=== PATIENT | female | born 1980 | race Caucasian/White ===

== ENCOUNTER 2016-12-31 21:23 | Emergency (ER) | payer SELFPAY ==
[2016-12-31 21:41] VITALS: BP 128/88
[2016-12-31] MEDS ORDERED: Ondansetron 4 MG/2 ML SDV IVPUSH ONE (22:41)
[2016-12-31] MEDS ORDERED: diphenhydrAMINE 50 MG/ML SDV IVPUSH ONE (22:41)
[2016-12-31] MEDS ORDERED: Lactated Ringers 1,000 ML IV ONE (22:41)
--- NOTE | 2016-12-31 22:55 | EDM.PDOC ---
ED HPI GENERAL MEDICAL PROBLEM - General Chief Complaint: Headache Stated Complaint: HEADACHE/VOMITING Time Seen by Provider: 12/31/16 22:15 - History of Present Illness INITIAL COMMENTS - FREE TEXT/NARRATIVE: 36-year-old female presents emergency room with a headache. This started after reaching to the back of her car and grabbing her backpack she heard something pop in her upper back, and this extended up into her head. This is progressively been getting worse throughout the day. The patient has a history of tension headaches migraine headaches. This is a typical headache for her patient has some associated nausea and photophobia has not vomited with this she has not been eating or drinking much today. Patient has some right hand weakness that is getting worse over the last several weeks she is scheduled to see orthopedics on Tuesday for this. This is thought to be related to prior carpal tunnel surgery where she had some complications. 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 Pt did state to me that she cannot take lithium Hematologic History: Reports: Other (See Below) Other Hematologic History: pernicoius anemia Oncologic (Cancer) History: Reports: None - Infectious Disease History Infectious Disease History: Reports: None Social & Family History - Family History Family Medical History: Noncontributory - Tobacco Use Smoking Status *Q: Current Every Day Smoker Years of Tobacco use: 18 Packs/Tins Daily: 1 Used Tobacco, but Quit: No Second Hand Smoke Exposure: Yes - Caffeine Use Caffeine Use: Reports: None - Alcohol Use Days Per Week of Alcohol Use: 0 - Recreational Drug Use Recreational Drug Use: No ED ROS GENERAL - Review of Systems Review Of Systems: See Below Constitutional: Reports: No Symptoms HEENT: Reports: No Symptoms Respiratory: Reports: No Symptoms Cardiovascular: Reports: No Symptoms GI/Abdominal: Reports: Nausea. Denies: Abdominal Pain, Constipation, Diarrhea, Vomiting : Reports: No Symptoms Neurological: Reports: Headache. Denies: Trouble Speaking, Change in Speech, Gait Disturbance - Physical Exam Exam: See Below Exam Limited By: No Limitations General Appearance: Alert, No Apparent Distress, Other (She has some photophobia but is otherwise cooperative) Eye Exam: Bilateral Eye: EOMI, Normal Inspection, PERRL Ears: Normal External Exam, Normal Canal, Hearing Grossly Normal, Normal TMs Nose: Normal Inspection, Normal Mucosa, No Blood Throat/Mouth: Normal Inspection, Normal Lips, Normal Gums, Normal Oropharynx, Normal Voice, No Airway Compromise, Other (Semi-moist mucosa). No: Normal Teeth Head Exam: Atraumatic, Normocephalic Neck: Normal Inspection, Supple, Non-Tender, Full Range of Motion, Other (She has some mild to moderate muscle spasm in the paraspinous muscles bilaterally). No: Lymphadenopathy (L), Lymphadenopathy (R) Respiratory/Chest: No Respiratory Distress, Lungs Clear, Normal Breath Sounds Cardiovascular: Regular Rate, Rhythm, No Edema, No Murmur Neuro Exam (Abbreviated): Other (Cranial nerves II through XII grossly intact all muscle groups in the upper extremities with the exception of some of her hand muscles especially gripping seem to be intact no lower extremity weakness appreciated deep tendon reflexes the brachial radialis and patella tendons are equal and appropriate bilaterally cerebellar testing is entirely within normal limits) Course - Vital Signs Last Recorded V/S: Last Vital Signs Temp 36.6 C 12/31/16 21:36 Pulse 54 L 12/31/16 21:36 Resp 16 12/31/16 21:36 BP 128/88 12/31/16 21:36 Pulse Ox 100 12/31/16 21:36 - Orders/Labs/Meds Meds: Medications Discontinued Medications Generic Name Dose Route Start Last Admin Trade Name Freq PRN Reason Stop Dose Admin Diphenhydramine HCl 50 mg 12/31/16 22:41 12/31/16 22:53 Benadryl IVPUSH 12/31/16 22:42 50 mg ONETIME ONE Administration Lactated Ringer's 1,000 mls @ 999 mls/hr 12/31/16 22:41 12/31/16 22:53 Ringers, Lactated IV 12/31/16 23:41 999 mls/hr .BOLUS ONE Administration Ondansetron HCl 4 mg 12/31/16 22:41 12/31/16 22:53 Zofran IVPUSH 12/31/16 22:42 4 mg ONETIME ONE Administration - Re-Assessments/Exams Free Text/Narrative Re-Assessment/Exam: 12/31/16 23:47 Patient is doing much better her headache basically gone. She is received IV LR 4 mg Zofran 50 mg Benadryl. We'll discharge home at this time Departure - Departure Time of Disposition: 23:47 Disposition: Home, Self-Care 01 Clinical Impression: Muscle tension headache, Migraine - Discharge Information Forms: ED Department Discharge Additional Instructions: Return to the emergency room with any questions problems worsening symptoms. Go and get some sleep this is the best treatment for headaches do not eat anything heavy tonight mostly clear liquids. Follow-up with orthopedics as scheduled.
== END 2016-12-31 23:55 | disposition home or self-care (01) ==
LOC: JD.ED 21:23
DX: G44.209 Tension-type headache, unspecified, not intractable (principal); G43.909 Migraine, unspecified, not intractable, without status migrainosus; F17.210 Nicotine dependence, cigarettes, uncomplicated; Z86.2 Personal history of diseases of the blood and blood-forming organs and certain disorders involving the immune mechanism; Z88.8 Allergy status to other drugs, medicaments and biological substances; Z87.01 Personal history of pneumonia (recurrent)
CPT/HCPCS: 96361; 96374; 96375; 99284; J1200; J2405; J7120

== ENCOUNTER 2017-02-18 17:03 | Emergency (ER) | payer SELFPAY ==
[2017-02-18 17:46] VITALS: BP 146/112
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
== END 2017-02-18 18:40 ==
LOC: JD.ED 17:03
DX: M54.6 Pain in thoracic spine (principal); F17.210 Nicotine dependence, cigarettes, uncomplicated; R21 Rash and other nonspecific skin eruption; Z88.8 Allergy status to other drugs, medicaments and biological substances; Z87.01 Personal history of pneumonia (recurrent); W19.XXXA Unspecified fall, initial encounter
CPT/HCPCS: 99282; 99283

== ENCOUNTER 2017-04-22 14:35 | Emergency (ER) | payer SELFPAY ==
[2017-04-22] MEDS ORDERED: Ondansetron 4 MG/2 ML SDV IVPUSH ONE (16:37)
[2017-04-22] MEDS ORDERED: Ketorolac 30 MG/ML SDV IVPUSH ONE (16:37)
[2017-04-22] MEDS ORDERED: Sodium Chloride 0.9% 10 ML Syringe FLUSH PRN (16:37)
[2017-04-22] MEDS ORDERED: Sodium Chloride 0.9% 1,000 ML IV ONE (16:37)
--- NOTE | 2017-04-22 16:38 | EDM.PDOC ---
ED HPI GENERAL MEDICAL PROBLEM - General Chief Complaint: Gastrointestinal Problem Stated Complaint: HEAD PAIN Time Seen by Provider: 04/22/17 14:55 Source of Information: Reports: Patient History Limitations: Reports: No Limitations - History of Present Illness INITIAL COMMENTS - FREE TEXT/NARRATIVE: 36 year old female presents for evaluation and treatment of a headache, nausea, vomiting, diarrhea and chills. Patient reports she developed diarrhea yesterday , had 5-6 episodes yesterday. Started vomiting today. Reports 3-4 of vomiting today. Current symptoms include nausea, vomiting, chills, rigors, diaphoresis, headaches and back pain. No bloody stools. Patient also reports her skin feels "prinkly". Unsure if she had any fevers as she did not check her temperature. Denies any ear pain, sore throat or cough. Patient reports she used to frequently gets headaches and was previously on maxalt. Reports chronic back pain. states this improves with bed rest. Patient reports she recently started phentermine . Last took phentermine yesterday. She feels the phentermine is causing a racing heart and headaches. Patient is very concerned she is dehydrated. States she easily becomes dehydrated and is concerned she is dehydrated today. 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 (see below) Other Treatments HACK DRIVER: has not taken any pain relievers for headache headache Pain Score (Numeric/FACES): 8 - Related Data Allergies Allergy/AdvReac Type Severity Reaction Status Date / Time promethazine HCl Allergy Severe Anxiety Verified 04/22/17 15:13 [From Phenergan] metoclopramide HCl Allergy Anxiety Verified 04/22/17 15:13 [From Reglan] Home Meds: Home Meds Cyanocobalamin (Vitamin B12) [Vitamin B12] 1 dose IM ASDIRECTED 04/22/17 [ History] Phentermine HCl 45 mg PO DAILY 04/22/17 [History] Past Medical History Respiratory History: Reports: Pneumonia, Recurrent 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 Pt did state to me that she cannot take lithium Hematologic History: Reports: Other (See Below) Other Hematologic History: pernicoius anemia Oncologic (Cancer) History: Reports: None - Infectious Disease History Infectious Disease History: Reports: None Social & Family History - Family History Family Medical History: Noncontributory - Tobacco Use Smoking Status *Q: Current Every Day Smoker Years of Tobacco use: 15 Packs/Tins Daily: 1 Used Tobacco, but Quit: No Second Hand Smoke Exposure: Yes - Caffeine Use Caffeine Use: Reports: Coffee, Energy Drinks, Soda - Alcohol Use Days Per Week of Alcohol Use: 0 - Recreational Drug Use Recreational Drug Use: No ED ROS GENERAL - Review of Systems Review Of Systems: See Below Constitutional: Reports: Chills, Malaise, Diaphoresis. Denies: Fever (unsure) HEENT: Reports: Other (reprots photophobia). Denies: Eye Pain, Throat Pain Respiratory: Denies: Cough GI/Abdominal: Reports: Diarrhea, Nausea, Vomiting. Denies: Abdominal Pain, Bloody Stool : Reports: No Symptoms Musculoskeletal: Reports: Neck Pain (chronic), Back Pain (chronic) Neurological: Reports: Headache ED EXAM, GI/ABD - Physical Exam Exam: See Below Exam Limited By: No Limitations General Appearance: Alert, WD/WN, No Apparent Distress Ears: Normal External Exam, Normal Canal, Hearing Grossly Normal, Normal TMs Throat/Mouth: Normal Inspection, Normal Lips, Normal Oropharynx, Normal Voice, No Airway Compromise Respiratory/Chest: No Respiratory Distress, Lungs Clear, Normal Breath Sounds Cardiovascular: Normal Peripheral Pulses, Regular Rate, Rhythm, No Murmur GI/Abdominal Exam: Soft, Non-Tender Neurological: Alert, Oriented, Normal Cognition Psychiatric: Normal Affect, Normal Mood Skin Exam: Warm, Dry, Normal Color Course - Vital Signs Last Recorded V/S: Last Vital Signs Temp 37.0 C 04/22/17 15:00 Pulse 62 04/22/17 17:50 Resp 16 04/22/17 17:50 BP 100/44 L 04/22/17 17:50 Pulse Ox 98 04/22/17 17:50 - Orders/Labs/Meds Labs: Laboratory Tests 04/22/17 04/22/17 04/22/17 Range/Units 16:50 16:50 19:15 WBC 9.94 (3.98-10.04) K/mm3 RBC 4.26 (3.98-5.22) M/mm3 Hgb 13.5 (11.2-15.7) gm/L Hct 41.7 (34.1-44.9) % MCV 97.9 H (79.4-94.8) fl MCH 31.7 (25.6-32.2) pg MCHC 32.4 (32.2-35.5) g/dl RDW Std Deviation 44.9 (36.4-46.3) fL Plt Count 266 (182-369) K/mm3 MPV 11.4 (9.4-12.3) fl Neutrophils % (Manual) 69 H (40-60) % Band Neutrophils % 0 (0-10) % Lymphocytes % (Manual) 23 (20-40) % Atypical Lymphs % 1 % Monocytes % (Manual) 3 (2-10) % Eosinophils % (Manual) 4 (0.7-5.8) % Basophils % (Manual) 0 L (0.1-1.2) Platelet Estimate Adequate Plt Morphology Comment Normal RBC Morph Comment Normal Sodium 140 (136-145) mEq/L Potassium 4.1 (3.5-5.1) mEq/L Chloride 105 (98-107) mEq/L Carbon Dioxide 28 (21-32) mEq/L Anion Gap 11.1 (5-15) BUN 13 (7-18) mg/dL Creatinine 1.0 (0.55-1.02) mg/dL Est Cr Clr Drug Dosing 76.36 mL/min Estimated GFR (MDRD) > 60 (>60) mL/min BUN/Creatinine Ratio 13.0 L (14-18) Glucose 98 (74-106) mg/dL Calcium 8.7 (8.5-10.1) mg/dL Total Bilirubin 0.4 (0.2-1.0) mg/dL AST 23 (15-37) U/L ALT 33 (14-59) U/L Alkaline Phosphatase 65 (46-116) U/L C-Reactive Protein 0.5 (<1.0) mg/dL Total Protein 7.6 (6.4-8.2) g/dl Albumin 3.3 L (3.4-5.0) g/dl Globulin 4.3 gm/dL Albumin/Globulin Ratio 0.8 L (1-2) Urine Color Yellow (Yellow) Urine Appearance Slt cloudy H (Clear) Urine pH 6.0 (5.0-8.0) Ur Specific Gays > or = 1.030 (1.005-1.030) Urine Protein Negative (Negative) Urine Glucose (UA) Negative (Negative) Urine Ketones Negative (Negative) Urine Occult Blood 3+ H (Negative) Urine Nitrite Negative (Negative) Urine Bilirubin Negative (Negative) Urine Urobilinogen 1.0 (0.2-1.0) Ur Leukocyte Esterase Negative (Negative) Urine RBC 0-5 (0-5) /hpf Urine WBC 0-5 (0-5) /hpf Ur Epithelial Cells 0-5 (0-5) /hpf Urine Bacteria Few (FEW) /hpf Urine Mucus Many H (FEW) /hpf Meds: Medications Discontinued Medications Generic Name Dose Route Start Last Admin Trade Name Freq PRN Reason Stop Dose Admin Sodium Chloride 1,000 mls @ 999 mls/hr 04/22/17 16:37 04/22/17 17:06 Normal Saline IV 04/22/17 17:37 999 mls/hr ONETIME ONE Administration Ketorolac Tromethamine 30 mg 04/22/17 16:37 04/22/17 17:04 Toradol IVPUSH 04/22/17 16:38 30 mg ONETIME ONE Administration Ondansetron HCl 4 mg 04/22/17 16:37 04/22/17 17:02 Zofran IVPUSH 04/22/17 16:38 4 mg ONETIME ONE Administration Sodium Chloride 10 ml 04/22/17 16:37 04/22/17 17:04 Saline Flush FLUSH 10 ml ASDIRECTED PRN Administration Keep Vein Open - Re-Assessments/Exams Free Text/Narrative Re-Assessment/Exam: 04/22/172009 rapid influenza returned negative. Reviewed the labs with the patient. Headache improved. Currently a 5/10. Would like to go home at this time. Discharge instructions as documented. Departure - Departure Time of Disposition: 20:13 Disposition: Home, Self-Care 01 Condition: Good Clinical Impression: Muscle tension headache, Viral gastroenteritis - Discharge Information Instructions: Nausea, Adult, General Headache Without Cause, Nausea and Vomiting, Adult Referrals: PCP,Not In Area [Primary Care Provider] - Forms: ED Department Discharge Additional Instructions: go home and rest in dark quiet room. make sure you are drinking plenty of fluids. May take your pain medicine you have at home as needed for discomfort. Follow up with your primary care provider in 1-2 weeks for recheck of your symptoms. Please return to the ER if your symptoms change or worsen.
[2017-04-22 18:44] VITALS: BP 100/44
== END 2017-04-22 20:20 | disposition home or self-care (01) ==
LOC: JD.ED 14:35
DX: G44.209 Tension-type headache, unspecified, not intractable (principal); A08.4 Viral intestinal infection, unspecified; F17.210 Nicotine dependence, cigarettes, uncomplicated; Z79.899 Other long term (current) drug therapy; Z88.8 Allergy status to other drugs, medicaments and biological substances
CPT/HCPCS: 36415; 80053; 81001; 85025; 86140; 87804; 96361; 96374; 96375; 99284; J1885; J2405; J7040; J7050

== ENCOUNTER 2017-06-26 14:39 | Emergency (ER) | payer SELFPAY ==
[2017-06-26 14:52] VITALS: BP 121/80
[2017-06-26] MEDS ORDERED: Sodium Chloride 0.9% 10 ML Syringe FLUSH PRN (15:20)
[2017-06-26] MEDS ORDERED: Ketorolac 30 MG/ML SDV IVPUSH ONE (15:20)
[2017-06-26] MEDS ORDERED: Sodium Chloride 0.9% 1,000 ML IV ONE (15:20)
--- NOTE | 2017-06-26 15:35 | EDM.PDOC ---
ED HPI GENERAL MEDICAL PROBLEM - General Chief Complaint: Respiratory Problem Stated Complaint: CONGESTION COUGH SHORT OF BREATH Time Seen by Provider: 06/26/17 15:11 Source of Information: Reports: Patient History Limitations: Reports: No Limitations - History of Present Illness INITIAL COMMENTS - FREE TEXT/NARRATIVE: 36-year-old female presents for evaluation and treatment of fevers, body aches, headache and a productive cough. Reports that she's had symptoms last 4 or 5 days. Has been alternating between Tylenol and Motrin. Did not take any medications today. Reports her fever was as high as 105.6 last night. She states that she took a cold bath. She also reports that her fingertips are numb. Additionally, she reports right ear pain and a sore throat. No abdominal pain, nausea, vomiting or diarrhea. Patient reports that she frequently gets dehydrated and cannot recover. 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 reports that at one time she had a fever of 107.1. She is a current every day smoker and smokes about a pack a day. She stopped since her symptoms started for 5 days ago. No influenza vaccine this season. She states that last year she nearly from the influenza vaccine. She believes she has a bronchitis. She reports that she has "chronic pneumonia ". Generalized Pain Score (Numeric/FACES): 8 - Related Data Allergies Allergy/AdvReac Type Severity Reaction Status Date / Time promethazine HCl Allergy Severe Anxiety Verified 06/26/17 14:45 [From Phenergan] metoclopramide HCl Allergy Anxiety Verified 06/26/17 14:45 [From Reglan] Home Meds: Home Meds Cyanocobalamin (Vitamin B12) [Vitamin B12] 1 dose IM ASDIRECTED 04/22/17 [ History] Phentermine HCl 45 mg PO DAILY 04/22/17 [History] Orphenadrine [Norflex] 100 mg PO ASDIRECTED PRN 06/26/17 [History] Past Medical History HEENT History: Reports: Impaired Vision Respiratory History: Reports: Pneumonia, Recurrent Other Gastrointestinal History: pernicious anemia 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 Pt did state to me that she cannot take lithium Hematologic History: Reports: Other (See Below) Other Hematologic History: pernicoius anemia Oncologic (Cancer) History: Reports: None - Infectious Disease History Infectious Disease History: Reports: None Social & Family History - Family History Family Medical History: Noncontributory - Tobacco Use Smoking Status *Q: Current Every Day Smoker Years of Tobacco use: 15 Packs/Tins Daily: 1 Used Tobacco, but Quit: No Second Hand Smoke Exposure: Yes - Caffeine Use Caffeine Use: Reports: Coffee, Energy Drinks, Soda - Alcohol Use Days Per Week of Alcohol Use: 0 - Recreational Drug Use Recreational Drug Use: No ED ROS GENERAL - Review of Systems Review Of Systems: See Below Constitutional: Reports: Fever, Chills HEENT: Denies: Ear Pain, Throat Pain Respiratory: Reports: Cough, Sputum GI/Abdominal: Denies: Abdominal Pain, Diarrhea, Nausea, Vomiting Neurological: Reports: Headache, Numbness (finger tips) ED EXAM, GENERAL - Physical Exam Exam: See Below Exam Limited By: No Limitations General Appearance: Alert, WD/WN, No Apparent Distress Ears: Normal External Exam, Normal Canal, Hearing Grossly Normal, Normal TMs Nose: Normal Inspection Throat/Mouth: Normal Inspection, Normal Lips, Normal Voice, No Airway Compromise Neck: Normal Inspection. No: Lymphadenopathy (L), Lymphadenopathy (R) Respiratory/Chest: No Respiratory Distress, Lungs Clear, Normal Breath Sounds Cardiovascular: Normal Peripheral Pulses, No Murmur, Tachycardia GI/Abdominal: Soft, Non-Tender Neurological: Alert, Oriented, Normal Cognition Psychiatric: Normal Affect, Normal Mood Skin Exam: Warm, Dry, Normal Color Course - Vital Signs Last Recorded V/S: Last Vital Signs Temp 38.8 C H 06/26/17 14:47 Pulse 108 H 06/26/17 14:47 Resp 13 06/26/17 14:47 BP 121/80 06/26/17 14:47 Pulse Ox 100 06/26/17 14:47 - Orders/Labs/Meds Orders: Active Orders 24 hr Category Date Time Status Peripheral IV Care [RC] . DIRECTED Care 06/26/17 15:20 Active Chest 2V [CR] Stat Exams 06/26/17 15:20 Taken Peripheral IV Insertion Adult [OM.PC] Routine Oth 06/26/17 15:20 Ordered Labs: Laboratory Tests 06/26/17 06/26/17 Range/Units 16:30 16:30 WBC 4.52 (3.98-10.04) K/mm3 RBC 4.14 (3.98-5.22) M/mm3 Hgb 12.8 (11.2-15.7) gm/L Hct 40.0 (34.1-44.9) % MCV 96.6 H (79.4-94.8) fl MCH 30.9 (25.6-32.2) pg MCHC 32.0 L (32.2-35.5) g/dl RDW Std Deviation 44.0 (36.4-46.3) fL Plt Count 183 (182-369) K/mm3 MPV 11.2 (9.4-12.3) fl Neut % (Auto) 67.2 (34.0-71.1) % Lymph % (Auto) 18.6 L (19.3-51.7) % [place] % (Auto) 13.1 H (4.7-12.5) % Eos % (Auto) 0.9 (0.7-5.8) Baso % (Auto) 0.2 (0.1-1.2) % Neut # (Auto) 3.04 (1.56-6.13) K/mm3 Lymph # (Auto) 0.84 L (1.18-3.74) K/mm3 [place] # (Auto) 0.59 H (0.24-0.36) K/mm3 Eos # (Auto) 0.04 (0.04-0.36) K/mm3 Baso # (Auto) 0.01 (0.01-0.08) K/mm3 Sodium 137 (136-145) mEq/L Potassium 3.8 (3.5-5.1) mEq/L Chloride 104 (98-107) mEq/L Carbon Dioxide 24 (21-32) mEq/L Anion Gap 12.8 (5-15) BUN 13 (7-18) mg/dL Creatinine 1.1 H (0.55-1.02) mg/dL Est Cr Clr Drug Dosing 69.42 mL/min Estimated GFR (MDRD) 57 (>60) mL/min BUN/Creatinine Ratio 11.8 L (14-18) Glucose 92 (74-106) mg/dL Calcium 7.9 L (8.5-10.1) mg/dL Total Bilirubin 0.4 (0.2-1.0) mg/dL AST 25 (15-37) U/L ALT 35 (14-59) U/L Alkaline Phosphatase 54 (46-116) U/L C-Reactive Protein 3.8 H* (<1.0) mg/dL Total Protein 7.0 (6.4-8.2) g/dl Albumin 3.0 L (3.4-5.0) g/dl Globulin 4.0 gm/dL Albumin/Globulin Ratio 0.8 L (1-2) Meds: Medications Discontinued Medications Generic Name Dose Route Start Last Admin Trade Name Freq PRN Reason Stop Dose Admin Sodium Chloride 1,000 mls @ 999 mls/hr 06/26/17 15:20 06/26/17 15:59 Normal Saline IV 06/26/17 16:20 999 mls/hr ONETIME ONE Administration Ketorolac Tromethamine 30 mg 06/26/17 15:20 06/26/17 16:02 Toradol IVPUSH 06/26/17 15:21 30 mg ONETIME ONE Administration Sodium Chloride 10 ml 06/26/17 15:20 06/26/17 16:03 Saline Flush FLUSH 10 ml ASDIRECTED PRN Administration Keep Vein Open - Radiology Interpretation Free Text/Narrative:: chest xray shows no acute intrathoracic process - Re-Assessments/Exams Free Text/Narrative Re-Assessment/Exam: 06/26/17 18:14 Influence returned negative. I reviewed the labs and imaging with the patient. Likely viral upper respiratory infection at this time. Recommend rest and fluids. Discharge instructions as documented. Departure - Departure Time of Disposition: 18:15 Disposition: Home, Self-Care 01 Condition: Fair Clinical Impression: Viral upper respiratory illness - Discharge Information Instructions: Upper Respiratory Infection, Adult, [id number] Referrals: Penny Dnulap, BUSH HOG OPERATOR [Primary Care Provider] - Forms: ED Department Discharge Additional Instructions: OTC tylenol and motrin as needed for fevers, headaches and bodyaches. rest. make sure you are drinking plenty of fluids. Follow-up with your PCP if your symptoms are not much better in one week. Please return to the ER should your symptoms change or worsen. - My Orders Last 24 Hours: My Active Orders 06/26/17 15:20 Peripheral IV Care [RC] . DIRECTED Chest 2V [CR] Stat Peripheral IV Insertion Adult [OM.PC] Routine - Assessment/Plan Last 24 Hours: My Active Orders 06/26/17 15:20 Peripheral IV Care [RC] . DIRECTED Chest 2V [CR] Stat Peripheral IV Insertion Adult [OM.PC] Routine
--- NOTE | 2017-06-27 07:54 | CR ---
Chest: Two views of the chest were obtained. Comparison: Prior chest x-ray of 03/14/16. Nodularity is seen within the inferior right hilar region. This is most likely due to superimposed vascular structures rather than adenopathy. Heart size and mediastinum are otherwise within normal limits. Lungs are clear. Bony structures are within normal limits. Impression: 1. Nothing acute is appreciated on two-view chest x-ray. Diagnostic code #2
== END 2017-06-26 18:25 | disposition home or self-care (01) ==
LOC: JD.ED 14:39
DX: J06.9 Acute upper respiratory infection, unspecified (principal); F17.210 Nicotine dependence, cigarettes, uncomplicated; Z79.899 Other long term (current) drug therapy; Z88.8 Allergy status to other drugs, medicaments and biological substances
CPT/HCPCS: 36415; 71046; 80053; 85025; 86140; 87804; 96361; 96374; 99284; J1885; J7040; J7050

== ENCOUNTER 2017-07-29 18:42 | Emergency (ER) | payer SELFPAY ==
[2017-07-29 19:20] VITALS: BP 127/84
--- NOTE | 2017-07-29 20:23 | EDM.PDOCBH ---
ED HPI GENERAL MEDICAL PROBLEM - General Chief Complaint: Behavioral/Psych Stated Complaint: NERVOUS BREAKDOWN Time Seen by Provider: 07/29/17 20:00 Source of Information: Reports: Patient, Other (friend) History Limitations: Reports: No Limitations - History of Present Illness INITIAL COMMENTS - FREE TEXT/NARRATIVE: 36-year-old female presents for evaluation and treatment of a nervous breakdown. Patient normally sees Dr. montgomery of [facility]. She states that she contacted [facility] today and was instructed to come to the ER. Patient is accompanied by her friend, Ravi. Patient reports she found out today that her has left her for another woman. She states that she is not so concerned about her . She is mostly upset that her therapy dog, Jonny, a Doberman pinscher was also taken from her. She also reports that he took their trailer and all of her belongings. She states that she does have somewhere to go a she has 2 other trailer she can stay up. Patient denies any suicidal ideation or plan. Denies any homicidal ideation. Patient does not use any drugs or alcohol. she is here requesting some buspar. Reports that she was previously been on 20- 25 mg of BuSpar day. Patient reports she has a history of PTSD. Patient denies any current medical complaints. 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 She states that she sees a drug abuse worker in [place]. She was given 6 months to live. 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 She needs B12 and folate injections frequently. - Related Data Allergies Allergy/AdvReac Type Severity Reaction Status Date / Time promethazine HCl AdvReac Mild Anxiety Verified 07/31/17 20:03 [From Phenergan] metoclopramide HCl AdvReac Anxiety Verified 07/31/17 20:03 [From Reglan] Home Meds: Home Meds Cyanocobalamin (Vitamin B12) [Vitamin B12] 1 dose IM ASDIRECTED 04/22/17 [ History] busPIRone HCl [Buspirone HCl] 7.5 mg PO BID #30 tablet 07/29/17 [Rx] LORazepam [Ativan] 1 mg PO Q8H PRN #5 tab 07/30/17 [Rx] Past Medical History HEENT History: Reports: Impaired Vision Respiratory History: Reports: Pneumonia, Recurrent Other Gastrointestinal History: pernicious anemia 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 Hematologic History: Reports: Other (See Below) Other Hematologic History: pernicoius anemia Oncologic (Cancer) History: Reports: None - Infectious Disease History Infectious Disease History: Reports: None Social & Family History - Family History Family Medical History: Noncontributory - Tobacco Use Smoking Status *Q: Current Every Day Smoker Years of Tobacco use: 15 Packs/Tins Daily: 1 Used Tobacco, but Quit: No Second Hand Smoke Exposure: Yes - Caffeine Use Caffeine Use: Reports: Coffee, Soda - Alcohol Use Days Per Week of Alcohol Use: 0 - Recreational Drug Use Recreational Drug Use: No ED ROS GENERAL - Review of Systems Review Of Systems: See Below Psychiatric: Reports: Anxiety. Denies: Homicidal Ideation, Suicidal Ideation ED EXAM, BEHAVIORAL HEALTH - Physical Exam Exam: See Below Exam Limited By: No Limitations General Appearance: Alert, WD/WN, No Apparent Distress Throat/Mouth: Normal Voice, No Airway Compromise Respiratory/Chest: No Respiratory Distress Neurological: Alert, Normal Mood/Affect, Normal Cognition Psychiatric: Alert, Normal Affect, Normal Cognition, Normal Mood, Oriented, Tearful, Grandiose Thoughts. No: Poor Eye Contact, Uncooperative, Suicidal Plan , Suicidal Thoughts, Paranoid Thoughts, Threatening Behavior Skin Exam: Warm, Dry, Normal color COURSE, BEHAVIORAL HEALTH COMP - Course Vital Signs: Last Vital Signs Temp 36.2 C 07/29/17 19:17 Pulse 87 07/29/17 19:17 Resp 18 07/29/17 19:17 BP 127/84 07/29/17 19:17 Pulse Ox 97 07/29/17 19:17 Re-Assessment/Re-Exam: 20:10 I will give the patient some BuSpar. I will just start her at a low dose. Follow -up with Dr. Montgomery at [facility] next week. Discharge instructions as documented. Departure - Departure Time of Disposition: 20:19 Disposition: Home, Self-Care 01 Condition: Fair Clinical Impression: Anxiety - Discharge Information Prescriptions: busPIRone HCl [Buspirone HCl] 7.5 mg PO BID #30 tablet Instructions: Social Anxiety Disorder, Adult Referrals: PCP,None [Primary Care Provider] - Ulises,Yanna Patel MD [Ordering Only Provider] - Forms: ED Department Discharge Additional Instructions: take the buspar 1 tab PO bid. Follow-up with Dr. Montgomery for further management and refills. Please return to the ER should your symptoms change or worsen.
== END 2017-07-29 20:41 | disposition home or self-care (01) ==
LOC: JD.ED 18:42
DX: F41.9 Anxiety disorder, unspecified (principal); F17.210 Nicotine dependence, cigarettes, uncomplicated; Z88.8 Allergy status to other drugs, medicaments and biological substances
CPT/HCPCS: 99283; 99284

== ENCOUNTER 2017-07-30 16:14 | Emergency (ER) | payer SELFPAY ==
[2017-07-30 16:28] VITALS: BP 130/92
[2017-07-30] MEDS ORDERED: LORazepam 2 MG/ML MDV IM ONE (16:57)
--- NOTE | 2017-07-30 19:10 | EDM.PDOCBH ---
ED HPI GENERAL MEDICAL PROBLEM - General Chief Complaint: Behavioral/Psych Stated Complaint: ANXIETY Time Seen by Provider: 07/30/17 17:30 Source of Information: Reports: Patient History Limitations: Reports: No Limitations - History of Present Illness INITIAL COMMENTS - FREE TEXT/NARRATIVE: 36-year-old female presents for evaluation and treatment of anxiety. Patient was seen by myself last night. She is recently have some life stressors including her leaving her. Ports that her therapy dog was taken by her . She was started on but BuSpar last night. Patient when patient arrived to the ER she was crying. She states that her has now shot her therapy dog. She is very upset by this. This time I enter the room the patient has significantly calmed down. She is requesting a shot of Ativan to help with her anxiety. She denies any suicidal ideation or plan. Denies any homicidal ideation or plan. She is requesting only a shot of Ativan to help with her anxiety. Chest Pain Score (Numeric/FACES): 5 - Related Data Allergies Allergy/AdvReac Type Severity Reaction Status Date / Time promethazine HCl AdvReac Mild Anxiety Verified 07/31/17 20:03 [From Phenergan] metoclopramide HCl AdvReac Anxiety Verified 07/31/17 20:03 [From Reglan] Home Meds: Home Meds Cyanocobalamin (Vitamin B12) [Vitamin B12] 1 dose IM ASDIRECTED 04/22/17 [ History] busPIRone HCl [Buspirone HCl] 7.5 mg PO BID #30 tablet 07/29/17 [Rx] LORazepam [Ativan] 1 mg PO Q8H PRN #5 tab 07/30/17 [Rx] Past Medical History HEENT History: Reports: Impaired Vision Respiratory History: Reports: Pneumonia, Recurrent Other Gastrointestinal History: pernicious anemia 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 Hematologic History: Reports: Other (See Below) Other Hematologic History: pernicoius anemia Oncologic (Cancer) History: Reports: None - Infectious Disease History Infectious Disease History: Reports: None Social & Family History - Family History Family Medical History: Noncontributory - Tobacco Use Smoking Status *Q: Current Every Day Smoker Years of Tobacco use: 15 Packs/Tins Daily: 1 Used Tobacco, but Quit: No Second Hand Smoke Exposure: Yes - Caffeine Use Caffeine Use: Reports: None - Alcohol Use Days Per Week of Alcohol Use: 0 - Recreational Drug Use Recreational Drug Use: No ED ROS GENERAL - Review of Systems Review Of Systems: See Below Psychiatric: Reports: Anxiety. Denies: Homicidal Ideation, Suicidal Ideation ED EXAM, BEHAVIORAL HEALTH - Physical Exam Exam: See Below Exam Limited By: No Limitations General Appearance: Alert, WD/WN, No Apparent Distress Respiratory/Chest: No Respiratory Distress Neurological: Alert, Normal Mood/Affect, Normal Cognition Psychiatric: Alert, Normal Affect, Normal Cognition, Tearful, Other (initally when she entered the ER she was crying, upon my presentation to the room she was conversing with staff and much more calm, no longer tearful). No: Poor Eye Contact, Uncooperative, Homicidal Thoughts, Suicidal Plan, Suicidal Thoughts, Threatening Behavior Skin Exam: Warm, Dry, Normal color COURSE, BEHAVIORAL HEALTH COMP - Course Vital Signs: Last Vital Signs Temp 36.6 C 07/30/17 16:21 Pulse 130 H 07/30/17 16:21 Resp 24 H 07/30/17 16:21 BP 130/92 H 07/30/17 16:21 Pulse Ox 100 07/30/17 16:21 Orders, Labs, Meds: Medications Discontinued Medications Generic Name Dose Route Start Last Admin Trade Name Freq PRN Reason Stop Dose Admin Lorazepam 1 mg 07/30/17 16:57 07/30/17 17:11 Ativan IM 07/30/17 16:58 1 mg ONETIME ONE Administration Re-Assessment/Re-Exam: 19:00 Patient was given a shot of Ativan. I kept her in the ER to ensure that she was safe. She denies on several locations suicidal or homicidal ideation or plan. I will write her a small prescription for Ativan. Follow up with rayo Departure - Departure Time of Disposition: 19:06 Disposition: Home, Self-Care 01 Condition: Fair Clinical Impression: Anxiety - Discharge Information Prescriptions: LORazepam [Ativan] 1 mg PO Q8H PRN #5 tab PRN Reason: Anxiety Instructions: Social Anxiety Disorder, Adult Referrals: Penny Dunlap, TACKER ELASTIC BAND [Primary Care Provider] - Forms: ED Department Discharge Additional Instructions: Follow-up with Dr. lagos. Ativan 1 tab every 8 hours as needed for anxiety. Please return to the ER if your symptoms change or worsen.
== END 2017-07-30 19:16 | disposition home or self-care (01) ==
LOC: JD.ED 16:14
DX: F41.9 Anxiety disorder, unspecified (principal); Z88.8 Allergy status to other drugs, medicaments and biological substances; Z79.899 Other long term (current) drug therapy; F17.210 Nicotine dependence, cigarettes, uncomplicated
CPT/HCPCS: 96372; 99283; J2060

== ENCOUNTER 2017-07-31 19:53 | Emergency (ER) | payer SELFPAY ==
[2017-07-31 20:08] VITALS: BP 123/81
--- NOTE | 2017-07-31 21:42 | EDM.PDOCBH ---
ED HPI GENERAL MEDICAL PROBLEM - General Chief Complaint: Behavioral/Psych Stated Complaint: anxiety and chest pain possible panic attack Time Seen by Provider: 07/31/17 21:02 Source of Information: Reports: Patient History Limitations: Reports: No Limitations - History of Present Illness INITIAL COMMENTS - FREE TEXT/NARRATIVE: 36-year-old female presents for evaluation treatment of anxiety. Patient has been seen by myself in the ER the last 2 days. She has had some significant life stressors including her leaving her and taking her therapy dog. Yesterday she found out that her shot her therapy dog, a Doberman pinscher. On Tuesday she was seen in the ER and asked to be started on BuSpar. I started her on a low dose of BuSpar. Yesterday she presented and asked for shot of Ativan. I did give her a shot of Ativan while here in the ER and wrote her prescription for about 5 tabs of Ativan. She did not fill these. She is here tonight requesting something to help her sleep. She states she's taken Valium in the past this has helped. She is feeling very anxious. She denies any suicidal ideation or plan. Denies any homicidal ideation or plan. She does talk about work and upcoming events. She states that she is a plan to go to [facility] in the morning. Chest Pain Score (Numeric/FACES): 3 - Related Data Allergies Allergy/AdvReac Type Severity Reaction Status Date / Time promethazine HCl AdvReac Mild Anxiety Verified 07/31/17 20:03 [From Phenergan] metoclopramide HCl AdvReac Anxiety Verified 07/31/17 20:03 [From Reglan] Home Meds: Home Meds Cyanocobalamin (Vitamin B12) [Vitamin B12] 1 dose IM ASDIRECTED 04/22/17 [ History] busPIRone HCl [Buspirone HCl] 7.5 mg PO BID #30 tablet 07/29/17 [Rx] LORazepam [Ativan] 1 mg PO Q8H PRN #5 tab 07/30/17 [Rx] Past Medical History HEENT History: Reports: Impaired Vision Respiratory History: Reports: Pneumonia, Recurrent Other Gastrointestinal History: pernicious anemia 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 Hematologic History: Reports: Other (See Below) Other Hematologic History: pernicoius anemia Oncologic (Cancer) History: Reports: None - Infectious Disease History Infectious Disease History: Reports: None Social & Family History - Family History Family Medical History: Noncontributory - Tobacco Use Smoking Status *Q: Current Every Day Smoker Years of Tobacco use: 15 Packs/Tins Daily: 1 Used Tobacco, but Quit: No Second Hand Smoke Exposure: Yes - Caffeine Use Caffeine Use: Reports: Coffee - Alcohol Use Days Per Week of Alcohol Use: 0 - Recreational Drug Use Recreational Drug Use: No ED ROS GENERAL - Review of Systems Review Of Systems: See Below Psychiatric: Reports: Anxiety. Denies: Homicidal Ideation, Suicidal Ideation ED EXAM, BEHAVIORAL HEALTH - Physical Exam Exam: See Below Exam Limited By: No Limitations General Appearance: Alert, WD/WN, No Apparent Distress Respiratory/Chest: No Respiratory Distress Neurological: Alert, Normal Cognition Psychiatric: Alert, Depressed Mood, Tearful. No: Non-Communicative, Poor Eye Contact, Uncooperative, Homicidal Thoughts, Suicidal Plan, Suicidal Thoughts, Threatening Behavior Skin Exam: Warm, Dry, Normal color COURSE, BEHAVIORAL HEALTH COMP - Course Vital Signs: Last Vital Signs Temp 36.7 C 07/31/17 20:03 Pulse 88 07/31/17 20:03 Resp 18 07/31/17 20:03 BP 123/81 07/31/17 20:03 Pulse Ox 96 07/31/17 20:03 Orders, Labs, Meds: Medications Discontinued Medications Generic Name Dose Route Start Last Admin Trade Name Delvinq PRN Reason Stop Dose Admin Diazepam 5 mg 07/31/17 21:44 07/31/17 22:00 Valium. PO 07/31/17 21:45 5 mg ONETIME ONE Administration Re-Assessment/Re-Exam: 21:40 This is the third visit to the ER in the last 3 days for anxiety and depression. On all 3 occasions patient has denied any suicidal ideation or plan. She is denying any homicidal ideation or plan. The first night she was accompanied by a friend who did not report any threatening behavior or suicidal comments. The other 2 nights she has been by herself. Tonight she is requesting a one-time dose of Valium to help her sleep. She did not fill the Ativan that I gave her last night. I will give her a one-time dose of Valium here in the ED tonight with the understanding that she is to go to [facility] in the morning at 8 AM for an evaluation. She expresses agreement with this plan. Discharge instructions as documented. Departure - Departure Time of Disposition: 21:44 Disposition: Home, Self-Care 01 Condition: Fair Clinical Impression: Anxiety - Discharge Information Instructions: Generalized Anxiety Disorder, Adult Referrals: Penny Dunlap, CLARITY DEVELOPER [Primary Care Provider] - Forms: ED Department Discharge Additional Instructions: Go to [facility] tomorrow. There are open at 8 AM for walk in clinic hours for immediate evaluation. go home tonight and go to sleep. Please return to the ER if your symptoms change or worsen.
[2017-07-31] MEDS ORDERED: Diazepam 5 MG Tab PO ONE (21:44)
== END 2017-07-31 22:00 | disposition home or self-care (01) ==
LOC: JD.ED 19:53
DX: F41.9 Anxiety disorder, unspecified (principal); Z88.8 Allergy status to other drugs, medicaments and biological substances; F17.210 Nicotine dependence, cigarettes, uncomplicated
CPT/HCPCS: 99283; A9270

== ENCOUNTER 2017-08-25 22:52 | Emergency (ER) | payer SELFPAY ==
[2017-08-25 23:05] VITALS: BP 126/87
[2017-08-26] MEDS ORDERED: Doxycycline 100 MG Cap PO ONE (00:07)
[2017-08-26] MEDS ORDERED: Acetaminophen/HYDROcodone 325-5 MG Tab PO ONE (00:07)
--- NOTE | 2017-08-26 00:27 | EDM.PDOC ---
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 This first started about one week ago. She has been driving a long distance the last day or 2 coming back from a road trip to [place]. Also the prolonged sitting has made it worse. No fever chills. No bladder symptomatology. No unusual drainage. She's never had anything of this nature before. right labia Pain Score (Numeric/FACES): 8 - Related Data Allergies Allergy/AdvReac Type Severity Reaction Status Date / Time promethazine HCl AdvReac Mild Anxiety Verified 08/25/17 23:05 [From Phenergan] metoclopramide HCl AdvReac Anxiety Verified 08/25/17 23:05 [From Reglan] Home Meds: Home Meds Cyanocobalamin (Vitamin B12) [Vitamin B12] 1 dose IM ASDIRECTED 04/22/17 [ History] Prazosin [Minpress] 5 mg PO BEDTIME 08/25/17 [History] Acetaminophen/HYDROcodone [Reading 325-5 MG] 1 tab PO Q6H PRN #14 tablet 08/26/17 [Rx] Doxycycline [Vibramycin] 100 mg PO DAILY #14 tab 08/26/17 [Rx] Past Medical History HEENT History: Reports: Impaired Vision Respiratory History: Reports: Pneumonia, Recurrent Other Gastrointestinal History: pernicious anemia 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 Hematologic History: Reports: Other (See Below) Other Hematologic History: pernicoius anemia Oncologic (Cancer) History: Reports: None - Infectious Disease History Infectious Disease History: Reports: None Social & Family History - Family History Family Medical History: Noncontributory - Tobacco Use Smoking Status *Q: Current Every Day Smoker Years of Tobacco use: 18 Packs/Tins Daily: 1 Used Tobacco, but Quit: No Second Hand Smoke Exposure: Yes - Caffeine Use Caffeine Use: Reports: Soda - Alcohol Use Days Per Week of Alcohol Use: 0 - Recreational Drug Use Recreational Drug Use: No ED ROS GENERAL - Review of Systems Review Of Systems: See Below Constitutional: Denies: Fever, Chills HEENT: Reports: No Symptoms Respiratory: Denies: Shortness of Breath Cardiovascular: Denies: Chest Pain GI/Abdominal: Denies: Abdominal Pain, Nausea, Vomiting : Reports: Other (pain and swelling R vulva) Musculoskeletal: Reports: No Symptoms Skin: Denies: Rash Neurological: Reports: No Symptoms ED EXAM, RENAL/ - Physical Exam Exam: See Below General Appearance: Alert, No Apparent Distress Throat/Mouth: Normal Inspection Head: Atraumatic. No: Facial Swelling Neck: Supple, Full Range of Motion Respiratory/Chest: No Respiratory Distress, Lungs Clear, Normal Breath Sounds Cardiovascular: Regular Rate, Rhythm (Female) Exam: Other (there is moderate swelling, tenderness of the R vulva, not red or visibly inflamed other than the swelling or tenderness, no evidence of drainage at this time) Extremities: Normal Inspection, Normal Range of Motion Neurological: Alert, Oriented, No Motor/Sensory Deficits Skin Exam: Warm, Dry, No Rash Course - Vital Signs Last Recorded V/S: Last Vital Signs Temp 99.3 F 08/25/17 22:59 Pulse 93 08/25/17 22:59 Resp 18 08/25/17 22:59 BP 126/87 08/25/17 22:59 Pulse Ox 100 08/25/17 22:59 - Orders/Labs/Meds Meds: Medications Discontinued Medications Generic Name Dose Route Start Last Admin Trade Name Freq PRN Reason Stop Dose Admin Hydrocodone Bitart/Acetaminophen 1 tab 08/26/17 00:07 08/26/17 00:13 Reading 325-5 Mg PO 08/26/17 00:08 1 tab ONETIME ONE Administration Doxycycline Hyclate 200 mg 08/26/17 00:07 08/26/17 00:13 Vibramycin PO 08/26/17 00:08 200 mg ONETIME ONE Administration Departure - Departure Time of Disposition: 00:24 Disposition: Home, Self-Care 01 Condition: Fair Clinical Impression: Bartholin's gland cyst - Discharge Information Prescriptions: Acetaminophen/HYDROcodone [Reading 325-5 MG] 1 tab PO Q6H PRN #14 tablet PRN Reason: Pain Doxycycline [Vibramycin] 100 mg PO DAILY #14 tab Instructions: Bartholin Cyst or Abscess, [id number] Referrals: Penny Dunlap [employer] [Primary Care Provider] - Forms: ED Department Discharge Additional Instructions: Warm soaks 3-4 times daily as best you can, continue doxycycline antibiotic 100 mg twice daily until gone, Tylenol for mild to moderate discomfort or hydrocodone if needed for more severe pain, do not drive or work when taking hydrocodone. Follow-up clinic with your provider or one of the [facility] providers tomorrow or early next week, first available appointment.
== END 2017-08-26 00:32 | disposition home or self-care (01) ==
LOC: JD.ED 22:52
DX: N75.0 Cyst of Bartholin's gland (principal); F17.210 Nicotine dependence, cigarettes, uncomplicated; F41.9 Anxiety disorder, unspecified; F32.9 Major depressive disorder, single episode, unspecified; Z88.5 Allergy status to narcotic agent; Z79.899 Other long term (current) drug therapy; Z87.01 Personal history of pneumonia (recurrent)
CPT/HCPCS: 99283; A9270

== ENCOUNTER 2017-09-11 13:17 | Emergency (ER) | payer SELFPAY ==
[2017-09-11 13:43] VITALS: BP 157/73
[2017-09-11] MEDS ORDERED: Orphenadrine 100 MG Tab.ER PO STA (14:17)
[2017-09-11] MEDS ORDERED: Ketorolac 60 MG/2 ML SDV IM ONE (14:17)
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
== END 2017-09-11 15:25 | disposition home or self-care (01) ==
LOC: JD.ED 13:17
DX: M54.6 Pain in thoracic spine (principal); F17.210 Nicotine dependence, cigarettes, uncomplicated; Z88.8 Allergy status to other drugs, medicaments and biological substances
CPT/HCPCS: 96372; 99283; A9270; J1885

== ENCOUNTER 2017-09-19 17:02 | Emergency (ER) | payer SELFPAY ==
[2017-09-19 17:11] VITALS: BP 133/76
[2017-09-19] MEDS ORDERED: Ondansetron 4 MG/2 ML SDV IVPUSH ONE (18:14)
[2017-09-19] MEDS ORDERED: Sodium Chloride 0.9% 10 ML Syringe FLUSH PRN (18:14)
[2017-09-19] MEDS ORDERED: Sodium Chloride 0.9% 1,000 ML IV ONE (18:14)
[2017-09-19] MEDS ORDERED: HYDROmorphone 0.5 MG/0.5 ML SYRINGE IVPUSH ONE (18:14)
--- NOTE | 2017-09-19 18:19 | EDM.PDOC ---
ED HPI GENERAL MEDICAL PROBLEM - General Chief Complaint: Abdominal Pain Stated Complaint: STOMACH & SIDE PAIN Time Seen by Provider: 09/19/17 18:03 Source of Information: Reports: Patient History Limitations: Reports: No Limitations - History of Present Illness INITIAL COMMENTS - FREE TEXT/NARRATIVE: Patient is a 37-year-old female who presents to the ED complaining of pain just left of the periumbilical region that radiates across to the right side of her abdomen. Pain is sharp with a crampy sensation that waxes and wanes in intensity. This started abruptly 4 days ago and has progressively gotten worse. She has been nauseous with difficulties in keeping any liquids or foods down. She feels fatigued and tired. The been no documented fever and or dysuria. She is concerned she may be since she missed her last 2 menstrual cycles. States she's had a tubal ligation. She has been spotting intermittently. No abnormal vaginal discharge. Pain is quite severe at its peak. She has not taken any medications for this. She takes B12 for pernicious anemia. She smokes one pack per day. Denies any alcohol or recreational drug use. She is supposed to be under a pain contract for burst fractures to the thoracic spine. She has not followed through with this. Her primary care provider is Dr. Dunlap. 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 Hematologic History: Reports: Other (See Below) Other Hematologic History: pernicoius anemia Oncologic (Cancer) History: Reports: None - Infectious Disease History Infectious Disease History: Reports: None Social & Family History - Family History Family Medical History: Noncontributory - Tobacco Use Smoking Status *Q: Current Every Day Smoker Years of Tobacco use: 15 Packs/Tins Daily: 1 Used Tobacco, but Quit: No Second Hand Smoke Exposure: Yes - Caffeine Use Caffeine Use: Reports: Soda - Alcohol Use Days Per Week of Alcohol Use: 0 - Recreational Drug Use Recreational Drug Use: No Recreational Drug Type: Reports: Fentanyl, Morphine ED ROS GENERAL - Review of Systems Review Of Systems: See Below Constitutional: Reports: Malaise, Fatigue, Decreased Appetite. Denies: Fever, Chills HEENT: Reports: No Symptoms Respiratory: Reports: No Symptoms Cardiovascular: Reports: No Symptoms GI/Abdominal: Reports: Abdominal Pain, Decreased Appetite, Nausea. Denies: Black Stool, Bloody Stool, Constipation, Diarrhea, Hematemesis, Hematochezia, Vomiting : Reports: Irregular Menses. Denies: Discharge, Dysuria, Flank Pain, Frequency, Hematuria, Urgency, Urinary Retention Musculoskeletal: Reports: No Symptoms Skin: Reports: No Symptoms Neurological: Reports: Dizziness (Intermittent). Denies: Headache, Numbness, Syncope, Tingling, Difficulty Walking Psychiatric: Reports: Anxiety ED EXAM, GI/ABD - Physical Exam Exam: See Below Exam Limited By: No Limitations General Appearance: Alert, WD/WN, Mild Distress Ears: Hearing Grossly Normal Nose: Normal Inspection Throat/Mouth: Normal Voice, No Airway Compromise Head: Atraumatic, Normocephalic Neck: Normal Inspection, Supple Respiratory/Chest: No Respiratory Distress, Lungs Clear, Normal Breath Sounds, No Accessory Muscle Use, Chest Non-Tender Cardiovascular: Normal Peripheral Pulses, Regular Rate, Rhythm GI/Abdominal Exam: Normal Bowel Sounds, Soft, No Organomegaly, No Distention, Tender (On the left side of the periventricular region. No McBurney's point tenderness, Rojo sign, or adnexal tenderness.) Back Exam: Normal Inspection. No: CVA Tenderness (L), CVA Tenderness (R) Neurological: Alert, Oriented, CN II-XII Intact, Normal Cognition, No Motor/ Sensory Deficits Psychiatric: Normal Affect, Normal Mood Skin Exam: Warm, Dry, Intact, Normal Color Course - Vital Signs Last Recorded V/S: Last Vital Signs Temp 98.4 F 04/23/18 17:08 Pulse 84 09/19/17 17:08 Resp 18 09/19/17 17:08 BP 133/76 09/19/17 17:08 Pulse Ox 100 09/19/17 17:08 - Orders/Labs/Meds Orders: Active Orders 24 hr Category Date Time Status Peripheral IV Care [RC] . DIRECTED Care 09/19/17 18:14 Active CULTURE URINE [RM] Stat Lab 09/19/17 18:18 Results HCG QUALITATIVE,URINE [URCHEM] Stat Lab 09/19/17 18:18 Ordered Peripheral IV Insertion Adult [OM.PC] Routine Oth 09/19/17 18:14 Ordered Labs: Laboratory Tests 09/19/17 09/19/17 09/19/17 Range/Units 18:18 18:18 18:25 WBC 10.27 H (3.98-10.04) K/mm3 RBC 4.29 (3.98-5.22) M/mm3 Hgb 13.4 (11.2-15.7) gm/L Hct 41.3 (34.1-44.9) % MCV 96.3 H (79.4-94.8) fl MCH 31.2 (25.6-32.2) pg MCHC 32.4 (32.2-35.5) g/dl RDW Std Deviation 45.0 (36.4-46.3) fL Plt Count 233 (182-369) K/mm3 MPV 11.1 (9.4-12.3) fl Neutrophils % (Manual) 65 H (40-60) % Band Neutrophils % 0 (0-10) % Lymphocytes % (Manual) 28 (20-40) % Atypical Lymphs % 0 % Monocytes % (Manual) 4 (2-10) % Eosinophils % (Manual) 2 (0.7-5.8) % Basophils % (Manual) 1 (0.1-1.2) Platelet Estimate Adequate Plt Morphology Comment Normal RBC Morph Comment Normal Sodium (136-145) mEq/L Potassium (3.5-5.1) mEq/L Chloride (98-107) mEq/L Carbon Dioxide (21-32) mEq/L Anion Gap (5-15) BUN (7-18) mg/dL Creatinine (0.55-1.02) mg/dL Est Cr Clr Drug Dosing mL/min Estimated GFR (MDRD) (>60) mL/min BUN/Creatinine Ratio (14-18) Glucose (74-106) mg/dL Calcium (8.5-10.1) mg/dL Total Bilirubin (0.2-1.0) mg/dL AST (15-37) U/L ALT (14-59) U/L Alkaline Phosphatase (46-116) U/L C-Reactive Protein (<1.0) mg/dL Total Protein (6.4-8.2) g/dl Albumin (3.4-5.0) g/dl Globulin gm/dL Albumin/Globulin Ratio (1-2) Lipase (73-393) U/L HCG, Quant mIU/mL Urine Color Yellow (Yellow) Urine Appearance Clear (Clear) Urine pH 6.5 (5.0-8.0) Ur Specific [place] 1.020 (1.005-1.030) Urine Protein Negative (Negative) Urine Glucose (UA) Negative (Negative) Urine Ketones Negative (Negative) Urine Occult Blood Negative (Negative) Urine Nitrite Negative (Negative) Urine Bilirubin Negative (Negative) Urine Urobilinogen 0.2 (0.2-1.0) Ur Leukocyte Esterase 1+ H (Negative) Urine RBC 5-10 H (0-5) /hpf Urine WBC 5-10 H (0-5) /hpf Ur Epithelial Cells 10-20 H (0-5) /hpf Urine Bacteria Few (FEW) /hpf Urine Mucus Not seen (FEW) /hpf Urine HCG, Qual Positive (NEGATIVE) 09/19/17 09/19/17 Range/Units 18:25 18:25 WBC (3.98-10.04) K/mm3 RBC (3.98-5.22) M/mm3 Hgb (11.2-15.7) gm/L Hct (34.1-44.9) % MCV (79.4-94.8) fl MCH (25.6-32.2) pg MCHC (32.2-35.5) g/dl RDW Std Deviation (36.4-46.3) fL Plt Count (182-369) K/mm3 MPV (9.4-12.3) fl Neutrophils % (Manual) (40-60) % Band Neutrophils % (0-10) % Lymphocytes % (Manual) (20-40) % Atypical Lymphs % % Monocytes % (Manual) (2-10) % Eosinophils % (Manual) (0.7-5.8) % Basophils % (Manual) (0.1-1.2) Platelet Estimate Plt Morphology Comment RBC Morph Comment Sodium 135 L (136-145) mEq/L Potassium 3.7 (3.5-5.1) mEq/L Chloride 104 (98-107) mEq/L Carbon Dioxide 26 (21-32) mEq/L Anion Gap 8.7 (5-15) BUN 11 (7-18) mg/dL Creatinine 0.9 (0.55-1.02) mg/dL Est Cr Clr Drug Dosing 84.03 mL/min Estimated GFR (MDRD) > 60 (>60) mL/min BUN/Creatinine Ratio 12.2 L (14-18) Glucose 83 (74-106) mg/dL Calcium 8.6 (8.5-10.1) mg/dL Total Bilirubin 0.4 (0.2-1.0) mg/dL AST 22 (15-37) U/L ALT 32 (14-59) U/L Alkaline Phosphatase 69 (46-116) U/L C-Reactive Protein 1.5 H* (<1.0) mg/dL Total Protein 7.5 (6.4-8.2) g/dl Albumin 3.4 (3.4-5.0) g/dl Globulin 4.1 gm/dL Albumin/Globulin Ratio 0.8 L (1-2) Lipase 112 (73-393) U/L HCG, Quant 35516.0 mIU/mL Urine Color (Yellow) Urine Appearance (Clear) Urine pH (5.0-8.0) Ur Specific [place] (1.005-1.030) Urine Protein (Negative) Urine Glucose (UA) (Negative) Urine Ketones (Negative) Urine Occult Blood (Negative) Urine Nitrite (Negative) Urine Bilirubin (Negative) Urine Urobilinogen (0.2-1.0) Ur Leukocyte Esterase (Negative) Urine RBC (0-5) /hpf Urine WBC (0-5) /hpf Ur Epithelial Cells (0-5) /hpf Urine Bacteria (FEW) /hpf Urine Mucus (FEW) /hpf Urine HCG, Qual (NEGATIVE) Meds: Medications Discontinued Medications Generic Name Dose Route Start Last Admin Trade Name Freq PRN Reason Stop Dose Admin Hydromorphone HCl 0.5 mg 09/19/17 18:14 09/19/17 18:42 Dilaudid IVPUSH 09/19/17 18:15 0.5 mg ONETIME ONE Administration Sodium Chloride 1,000 mls @ 999 mls/hr 09/19/17 18:14 09/19/17 18:40 Normal Saline IV 09/19/17 19:14 999 mls/hr ONETIME ONE Administration Ondansetron HCl 4 mg 09/19/17 18:14 09/19/17 18:40 Zofran IVPUSH 09/19/17 18:15 4 mg ONETIME ONE Administration Sodium Chloride 10 ml 09/19/17 18:14 09/19/17 18:44 Saline Flush FLUSH 10 ml ASDIRECTED PRN Administration Keep Vein Open - Re-Assessments/Exams Free Text/Narrative Re-Assessment/Exam: IV established with normal saline 999 MLS per hour, Dilaudid 0.5 mg IVP, and Zofran 4 mg IVP. Initial labs and studies include CBC, chem 14, hCG, lipase, UA, CRP, and two- view of the abdomen. Lab reported back patient is . X-ray of the abdomen has been canceled. Patient states she's had a tubal ligation. She also has a history of ectopic 2 unknown fallopian tube. Ordered hCG quantitative and also OB transvaginal ultrasound. 09/19/17 20:36 ultrasound OB transvaginal impression: Single intrauterine gestation. States as noted above. Small corpus luteum cyst with left ovary which is incidental and measuring 2.2 cm. No complicating process by ultrasound exam. HCG quantitative 69,082. UA came back positive for leukocyte Estrace, urine rbc's 5-10, urine wbc's 5-10 , and urine epithelial cells. Suspect contaminated. Patient has no voiding symptomatology. Ordered urine culture. Discussed lab and ultrasound findings with the patient. She will start vitamins. Follow-up with [facility] [employer] specialist in the next week or 2 for reevaluation. She continued to push the fluids as normal. Patient has no additional questions concerns. The patient remained hemodynamically stable while under my care in the E.D. I reviewed the patients care today and discussed the concerning symptoms for which to returnto the E.D. with the patient/family. The patient/family verbalized understanding. All questions were answered. Departure - Departure Time of Disposition: 20:49 Disposition: Home, Self-Care 01 Condition: Good Clinical Impression: Qualifiers: Weeks of gestation: less than 8 weeks Qualified Code(s): Z3A.01 - Less than 8 weeks gestation of Abdominal pain Qualifiers: Abdominal location: generalized Qualified Code(s): R10.84 - Generalized abdominal pain - Discharge Information Instructions: First Trimester of , [id number], Abdominal Pain, Adult , [id number] Referrals: Penny Dunlap NP [Primary Care Provider] - Forms: ED Department Discharge Additional Instructions: You are 7 wks 1 day . Please followup with OBGYN specialists of your choice. Start taking vitamins. Stop smoking. Refrain from alcohol use. Take tylenol 650 mg every 6 hrs for pain. Return to the E.D. if you develop any new or worsening symptoms. Care Plan Goals: ED HPI GENERAL MEDICAL PROBLEM - General Chief Complaint: Abdominal Pain Stated Complaint: STOMACH & SIDE PAIN Time Seen by Provider: 09/19/17 18:03 Source of Information: Reports: Patient History Limitations: Reports: No Limitations - History of Present Illness INITIAL COMMENTS - FREE TEXT/NARRATIVE: Patient is a 37-year-old female who presents ED complaining of pain just left of the periumbilical region that radiates across to the right side of her abdomen. Pain is sharp with a crampy sensation that waxes and wanes in intensity. This started abruptly 4 days ago and has progressively got worse. She has been nauseous with difficulties in keeping any liquids or foods down. She feels fatigued and tired. The been no documented fever and or dysuria. She is concerned since she missed her menstrual cycle in July that she may be . She's had a tubal ligation. She has been spotting intermittently. No abnormal vaginal discharge. Pain is quite severe at its peak. She has not taken any medications for this. She takes B12 for pernicious anemia. She smokes one pack per day. Denies any alcohol or recreational drug use. She is mostly under pain contract for burst fractures to the thoracic spine. She has not followed through with this. Her primary care provider is Dr. Dunlap. Right Abdominal Pain Score (Numeric/FACES): 8 - Related Data Allergies Allergy/AdvReac Type Severity Reaction Status Date / Time promethazine HCl AdvReac Mild Anxiety Verified 09/19/17 17:11 [From Phenergan] metoclopramide HCl AdvReac Anxiety Verified 09/19/17 17:11 [From Reglan] Home Meds: Home Meds Cyanocobalamin (Vitamin B12) [Vitamin B12] 1,000 mcg IM ASDIRECTED 09/19/17 [ History] Past Medical History HEENT History: Reports: Impaired Vision Respiratory History: Reports: Pneumonia, Recurrent Other Gastrointestinal History: pernicious anemia [employer] History: Reports: Other Musculoskeletal History: "Thoracic 8 is ruptured" Neurological History: Reports: Headaches, Chronic Psychiatric History: Reports: Anxiety, Depression, Other (See Below) Other Psychiatric History: pt states that she asked the MD for ashley as her anxiey causes her to have mood swings really bad. Hematologic History: Reports: Other (See Below) Other Hematologic History: pernicoius anemia Oncologic (Cancer) History: Reports: None - Infectious Disease History Infectious Disease History: Reports: None Social & Family History - Family History Family Medical History: Noncontributory - Tobacco Use Smoking Status *Q: Current Every Day Smoker Years of Tobacco use: 15 Packs/Tins Daily: 1 Used Tobacco, but Quit: No Second Hand Smoke Exposure: Yes - Caffeine Use Caffeine Use: Reports: Soda - Alcohol Use Days Per Week of Alcohol Use: 0 - Recreational Drug Use Recreational Drug Use: No Recreational Drug Type: Reports: Fentanyl, Morphine ED ROS GENERAL - Review of Systems Review Of Systems: See Below Constitutional: Reports: Malaise, Fatigue, Decreased Appetite. Denies: Fever, Chills HEENT: Reports: No Symptoms Respiratory: Reports: No Symptoms Cardiovascular: Reports: No Symptoms GI/Abdominal: Reports: Abdominal Pain, Decreased Appetite, Nausea. Denies: Black Stool, Bloody Stool, Constipation, Diarrhea, Hematemesis, Hematochezia, Vomiting : Reports: No Symptoms Musculoskeletal: Reports: No Symptoms Skin: Reports: No Symptoms Neurological: Reports: Dizziness (Intermittent). Denies: Headache, Numbness, Syncope, Tingling, Difficulty Walking Psychiatric: Reports: Anxiety ED EXAM, GI/ABD - Physical Exam Exam: See Below Exam Limited By: No Limitations General Appearance: Alert, WD/WN, Mild Distress Ears: Hearing Grossly Normal Nose: Normal Inspection Throat/Mouth: Normal Voice, No Airway Compromise Head: Atraumatic, Normocephalic Neck: Normal Inspection, Supple Respiratory/Chest: No Respiratory Distress, Lungs Clear, Normal Breath Sounds, No Accessory Muscle Use, Chest Non-Tender Cardiovascular: Normal Peripheral Pulses, Regular Rate, Rhythm GI/Abdominal Exam: Normal Bowel Sounds, Soft, No Organomegaly, No Distention, Tender (On the left side of the periventricular region. No McBurney's point tenderness, Rojo sign, or adnexal tenderness.) Back Exam: Normal Inspection. No: CVA Tenderness (L), CVA Tenderness (R) Neurological: Alert, Oriented, CN II-XII Intact, Normal Cognition, No Motor/ Sensory Deficits Psychiatric: Normal Affect, Normal Mood Skin Exam: Warm, Dry, Intact, Normal Color Course - Vital Signs Last Recorded V/S: Last Vital Signs Temp 98.4 F 09/19/17 17:08 Pulse 84 09/19/17 17:08 Resp 18 09/19/17 17:08 BP 133/76 09/19/17 17:08 Pulse Ox 100 09/19/17 17:08 - Orders/Labs/Meds Orders: Active Orders 24 hr Category Date Time Status Peripheral IV Care [RC] . DIRECTED Care 09/19/17 18:14 Active Chest PE [Ang Chest] [CT] Stat Exams 09/19/17 20:42 Stop Req CULTURE URINE [RM] Stat Lab 09/19/17 18:18 Received HCG QUALITATIVE,URINE [URCHEM] Stat Lab 09/19/17 18:18 Ordered Sodium Chloride 0.9% [Saline Flush] Med 09/19/17 18:14 Active 10 ml FLUSH ASDIRECTED PRN Peripheral IV Insertion Adult [OM.PC] Routine Oth 09/19/17 18:14 Ordered Medication Orders Sodium Chloride (Saline Flush) 10 ml FLUSH ASDIRECTED PRN PRN Reason: Keep Vein Open Last Admin: 09/19/17 18:44 Dose: 10 ml Labs: Laboratory Tests 09/19/17 09/19/17 09/19/17 Range/Units 18:18 18:18 18:25 WBC 10.27 H (3.98-10.04) K/mm3 RBC 4.29 (3.98-5.22) M/mm3 Hgb 13.4 (11.2-15.7) gm/L Hct 41.3 (34.1-44.9) % MCV 96.3 H (79.4-94.8) fl MCH 31.2 (25.6-32.2) pg MCHC 32.4 (32.2-35.5) g/dl RDW Std Deviation 45.0 (36.4-46.3) fL Plt Count 233 (182-369) K/mm3 MPV 11.1 (9.4-12.3) fl Neutrophils % (Manual) 65 H (40-60) % Band Neutrophils % 0 (0-10) % Lymphocytes % (Manual) 28 (20-40) % Atypical Lymphs % 0 % Monocytes % (Manual) 4 (2-10) % Eosinophils % (Manual) 2 (0.7-5.8) % Basophils % (Manual) 1 (0.1-1.2) Platelet Estimate Adequate Plt Morphology Comment Normal RBC Morph Comment Normal Sodium (136-145) mEq/L Potassium (3.5-5.1) mEq/L Chloride (98-107) mEq/L Carbon Dioxide (21-32) mEq/L Anion Gap (5-15) BUN (7-18) mg/dL Creatinine (0.55-1.02) mg/dL Est Cr Clr Drug Dosing mL/min Estimated GFR (MDRD) (>60) mL/min BUN/Creatinine Ratio (14-18) Glucose (74-106) mg/dL Calcium (8.5-10.1) mg/dL Total Bilirubin (0.2-1.0) mg/dL AST (15-37) U/L ALT (14-59) U/L Alkaline Phosphatase (46-116) U/L C-Reactive Protein (<1.0) mg/dL Total Protein (6.4-8.2) g/dl Albumin (3.4-5.0) g/dl Globulin gm/dL Albumin/Globulin Ratio (1-2) Lipase (73-393) U/L HCG, Quant mIU/mL Urine Color Yellow (Yellow) Urine Appearance Clear (Clear) Urine pH 6.5 (5.0-8.0) Ur Specific [place] 1.020 (1.005-1.030) Urine Protein Negative (Negative) Urine Glucose (UA) Negative (Negative) Urine Ketones Negative (Negative) Urine Occult Blood Negative (Negative) Urine Nitrite Negative (Negative) Urine Bilirubin Negative (Negative) Urine Urobilinogen 0.2 (0.2-1.0) Ur Leukocyte Esterase 1+ H (Negative) Urine RBC 5-10 H (0-5) /hpf Urine WBC 5-10 H (0-5) /hpf Ur Epithelial Cells 10-20 H (0-5) /hpf Urine Bacteria Few (FEW) /hpf Urine Mucus Not seen (FEW) /hpf Urine HCG, Qual Positive (NEGATIVE) 09/19/17 09/19/17 Range/Units 18:25 18:25 WBC (3.98-10.04) K/mm3 RBC (3.98-5.22) M/mm3 Hgb (11.2-15.7) gm/L Hct (34.1-44.9) % MCV (79.4-94.8) fl MCH (25.6-32.2) pg MCHC (32.2-35.5) g/dl RDW Std Deviation (36.4-46.3) fL Plt Count (182-369) K/mm3 MPV (9.4-12.3) fl Neutrophils % (Manual) (40-60) % Band Neutrophils % (0-10) % Lymphocytes % (Manual) (20-40) % Atypical Lymphs % % Monocytes % (Manual) (2-10) % Eosinophils % (Manual) (0.7-5.8) % Basophils % (Manual) (0.1-1.2) Platelet Estimate Plt Morphology Comment RBC Morph Comment Sodium 135 L (136-145) mEq/L Potassium 3.7 (3.5-5.1) mEq/L Chloride 104 (98-107) mEq/L Carbon Dioxide 26 (21-32) mEq/L Anion Gap 8.7 (5-15) BUN 11 (7-18) mg/dL Creatinine 0.9 (0.55-1.02) mg/dL Est Cr Clr Drug Dosing 84.03 mL/min Estimated GFR (MDRD) > 60 (>60) mL/min BUN/Creatinine Ratio 12.2 L (14-18) Glucose 83 (74-106) mg/dL Calcium 8.6 (8.5-10.1) mg/dL Total Bilirubin 0.4 (0.2-1.0) mg/dL AST 22 (15-37) U/L ALT 32 (14-59) U/L Alkaline Phosphatase 69 (46-116) U/L C-Reactive Protein 1.5 H* (<1.0) mg/dL Total Protein 7.5 (6.4-8.2) g/dl Albumin 3.4 (3.4-5.0) g/dl Globulin 4.1 gm/dL Albumin/Globulin Ratio 0.8 L (1-2) Lipase 112 (73-393) U/L HCG, Quant 24523.0 mIU/mL Urine Color (Yellow) Urine Appearance (Clear) Urine pH (5.0-8.0) Ur Specific [place] (1.005-1.030) Urine Protein (Negative) Urine Glucose (UA) (Negative) Urine Ketones (Negative) Urine Occult Blood (Negative) Urine Nitrite (Negative) Urine Bilirubin (Negative) Urine Urobilinogen (0.2-1.0) Ur Leukocyte Esterase (Negative) Urine RBC (0-5) /hpf Urine WBC (0-5) /hpf Ur Epithelial Cells (0-5) /hpf Urine Bacteria (FEW) /hpf Urine Mucus (FEW) /hpf Urine HCG, Qual (NEGATIVE) Meds: Medications Generic Name Dose Route Start Last Admin Trade Name Freq PRN Reason Stop Dose Admin Sodium Chloride 10 ml 09/19/17 18:14 09/19/17 18:44 Saline Flush FLUSH 10 ml ASDIRECTED PRN Administration Keep Vein Open Discontinued Medications Generic Name Dose Route Start Last Admin Trade Name Fresteffanie PRN Reason Stop Dose Admin Hydromorphone HCl 0.5 mg 09/19/17 18:14 09/19/17 18:42 Dilaudid IVPUSH 09/19/17 18:15 0.5 mg ONETIME ONE Administration Sodium Chloride 1,000 mls @ 999 mls/hr 09/19/17 18:14 09/19/17 18:40 Normal Saline IV 09/19/17 19:14 999 mls/hr ONETIME ONE Administration Ondansetron HCl 4 mg 09/19/17 18:14 09/19/17 18:40 Zofran IVPUSH 09/19/17 18:15 4 mg ONETIME ONE Administration - Re-Assessments/Exams Free Text/Narrative Re-Assessment/Exam: IV established with normal saline 999 MLS per hour, Dilaudid 0.5 mg IVP, and Zofran 4 mg IVP. Initial labs and studies include CBC, chem 14, hCG, lipase, UA, CRP, and two- view of the abdomen. Once the x-ray of the abdomen is obtained most likely was start the oral contrast for CT of the abdomen. Was reported back patient is . X-ray the abdomen has been canceled. She has had a tubal ligation. She has a history of ectopic 2 unknown fallopian tube. Ordered hCG quantitative and also OB transvaginal ultrasound. 09/19/17 20:36 ultrasound OB transvaginal impression: Single intrauterine gestation. States as noted above. Small corpus luteum cyst with left ovary which is incidental and measuring 2.2 cm. No complicating process by ultrasound exam. Departure - Departure Time of Disposition: 20:49 Disposition: Home, Self-Care 01 Condition: Good Clinical Impression: Qualifiers: Weeks of gestation: less than 8 weeks Qualified Code(s): Z3A.01 - Less than 8 weeks gestation of Abdominal pain Qualifiers: Abdominal location: generalized Qualified Code(s): R10.84 - Generalized abdominal pain - Discharge Information Instructions: Abdominal Pain, Adult, [id number], First Trimester of , [id number] Referrals: Penny Dunlap, [facility] [Primary Care Provider] - Forms: ED Department Discharge Additional Instructions: You are 7 wks 1 day . Please followup with OBGYN specialists of your choice. Start taking vitamins. Stop smoking. Refrain from alcohol use. Take tylenol 650 mg every 6 hrs for pain. Return to the E.D. if you develop any new or worsening symptoms. - My Orders Last 24 Hours: My Active Orders 09/19/17 18:14 Peripheral IV Care [RC] . DIRECTED Sodium Chloride 0.9% [Saline Flush] 10 ml FLUSH ASDIRECTED PRN Peripheral IV Insertion Adult [OM.PC] Routine 09/19/17 18:18 CULTURE URINE [RM] Stat HCG QUALITATIVE,URINE [URCHEM] Stat 09/19/17 20:42 Chest PE [Ang Chest] [CT] Stat - Assessment/Plan Last 24 Hours: My Active Orders 09/19/17 18:14 Peripheral IV Care [RC] . DIRECTED Sodium Chloride 0.9% [Saline Flush] 10 ml FLUSH ASDIRECTED PRN Peripheral IV Insertion Adult [OM.PC] Routine 09/19/17 18:18 CULTURE URINE [RM] Stat HCG QUALITATIVE,URINE [URCHEM] Stat 09/19/17 20:42 Chest PE [Ang Chest] [CT] Stat ED HPI GENERAL MEDICAL PROBLEM - General Chief Complaint: Abdominal Pain Stated Complaint: STOMACH & SIDE PAIN Time Seen by Provider: 09/19/17 18:03 Source of Information: Reports: Patient History Limitations: Reports: No Limitations - History of Present Illness INITIAL COMMENTS - FREE TEXT/NARRATIVE: Patient is a 37-year-old female who presents ED complaining of pain just left of the periumbilical region that radiates across to the right side of her abdomen. Pain is sharp with a crampy sensation that waxes and wanes in intensity. This started abruptly 4 days ago and has progressively got worse. She has been nauseous with difficulties in keeping any liquids or foods down. She feels fatigued and tired. The been no documented fever and or dysuria. She is concerned since she missed her menstrual cycle in July that she may be . She's had a tubal ligation. She has been spotting intermittently. No abnormal vaginal discharge. Pain is quite severe at its peak. She has not taken any medications for this. She takes B12 for pernicious anemia. She smokes one pack per day. Denies any alcohol or recreational drug use. She is mostly under pain contract for burst fractures to the thoracic spine. She has not followed through with this. Her primary care provider is Dr. Dunlap. 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 Hematologic History: Reports: Other (See Below) Other Hematologic History: pernicoius anemia Oncologic (Cancer) History: Reports: None - Infectious Disease History Infectious Disease History: Reports: None Social & Family History - Family History Family Medical History: Noncontributory - Tobacco Use Smoking Status *Q: Current Every Day Smoker Years of Tobacco use: 15 Packs/Tins Daily: 1 Used Tobacco, but Quit: No Second Hand Smoke Exposure: Yes - Caffeine Use Caffeine Use: Reports: Soda - Alcohol Use Days Per Week of Alcohol Use: 0 - Recreational Drug Use Recreational Drug Use: No Recreational Drug Type: Reports: Fentanyl, Morphine ED ROS GENERAL - Review of Systems Review Of Systems: See Below Constitutional: Reports: Malaise, Fatigue, Decreased Appetite. Denies: Fever, Chills HEENT: Reports: No Symptoms Respiratory: Reports: No Symptoms Cardiovascular: Reports: No Symptoms GI/Abdominal: Reports: Abdominal Pain, Decreased Appetite, Nausea. Denies: Black Stool, Bloody Stool, Constipation, Diarrhea, Hematemesis, Hematochezia, Vomiting : Reports: No Symptoms Musculoskeletal: Reports: No Symptoms Skin: Reports: No Symptoms Neurological: Reports: Dizziness (Intermittent). Denies: Headache, Numbness, Syncope, Tingling, Difficulty Walking Psychiatric: Reports: Anxiety ED EXAM, GI/ABD - Physical Exam Exam: See Below Exam Limited By: No Limitations General Appearance: Alert, WD/WN, Mild Distress Ears: Hearing Grossly Normal Nose: Normal Inspection Throat/Mouth: Normal Voice, No Airway Compromise Head: Atraumatic, Normocephalic Neck: Normal Inspection, Supple Respiratory/Chest: No Respiratory Distress, Lungs Clear, Normal Breath Sounds, No Accessory Muscle Use, Chest Non-Tender Cardiovascular: Normal Peripheral Pulses, Regular Rate, Rhythm GI/Abdominal Exam: Normal Bowel Sounds, Soft, No Organomegaly, No Distention, Tender (On the left side of the periventricular region. No McBurney's point tenderness, Rojo sign, or adnexal tenderness.) Back Exam: Normal Inspection. No: CVA Tenderness (L), CVA Tenderness (R) Neurological: Alert, Oriented, CN II-XII Intact, Normal Cognition, No Motor/ Sensory Deficits Psychiatric: Normal Affect, Normal Mood Skin Exam: Warm, Dry, Intact, Normal Color Course - Vital Signs Last Recorded V/S: Last Vital Signs Temp 98.4 F 09/19/17 17:08 Pulse 84 09/19/17 17:08 Resp 18 09/19/17 17:08 BP 133/76 09/19/17 17:08 Pulse Ox 100 09/19/17 17:08 - Orders/Labs/Meds Orders: Active Orders 24 hr Category Date Time Status Peripheral IV Care [RC] . DIRECTED Care 09/19/17 18:14 Active Chest PE [Ang Chest] [CT] Stat Exams 09/19/17 20:42 Stop Req CULTURE URINE [RM] Stat Lab 09/19/17 18:18 Received HCG QUALITATIVE,URINE [URCHEM] Stat Lab 09/19/17 18:18 Ordered Sodium Chloride 0.9% [Saline Flush] Med 09/19/17 18:14 Active 10 ml FLUSH ASDIRECTED PRN Peripheral IV Insertion Adult [OM.PC] Routine Oth 09/19/17 18:14 Ordered Medication Orders Sodium Chloride (Saline Flush) 10 ml FLUSH ASDIRECTED PRN PRN Reason: Keep Vein Open Last Admin: 09/19/17 18:44 Dose: 10 ml Labs: Laboratory Tests 09/19/17 09/19/17 09/19/17 Range/Units 18:18 18:18 18:25 WBC 10.27 H (3.98-10.04) K/mm3 RBC 4.29 (3.98-5.22) M/mm3 Hgb 13.4 (11.2-15.7) gm/L Hct 41.3 (34.1-44.9) % MCV 96.3 H (79.4-94.8) fl MCH 31.2 (25.6-32.2) pg MCHC 32.4 (32.2-35.5) g/dl RDW Std Deviation 45.0 (36.4-46.3) fL Plt Count 233 (182-369) K/mm3 MPV 11.1 (9.4-12.3) fl Neutrophils % (Manual) 65 H (40-60) % Band Neutrophils % 0 (0-10) % Lymphocytes % (Manual) 28 (20-40) % Atypical Lymphs % 0 % Monocytes % (Manual) 4 (2-10) % Eosinophils % (Manual) 2 (0.7-5.8) % Basophils % (Manual) 1 (0.1-1.2) Platelet Estimate Adequate Plt Morphology Comment Normal RBC Morph Comment Normal Sodium (136-145) mEq/L Potassium (3.5-5.1) mEq/L Chloride (98-107) mEq/L Carbon Dioxide (21-32) mEq/L Anion Gap (5-15) BUN (7-18) mg/dL Creatinine (0.55-1.02) mg/dL Est Cr Clr Drug Dosing mL/min Estimated GFR (MDRD) (>60) mL/min BUN/Creatinine Ratio (14-18) Glucose (74-106) mg/dL Calcium (8.5-10.1) mg/dL Total Bilirubin (0.2-1.0) mg/dL AST (15-37) U/L ALT (14-59) U/L Alkaline Phosphatase (46-116) U/L C-Reactive Protein (<1.0) mg/dL Total Protein (6.4-8.2) g/dl Albumin (3.4-5.0) g/dl Globulin gm/dL Albumin/Globulin Ratio (1-2) Lipase (73-393) U/L HCG, Quant mIU/mL Urine Color Yellow (Yellow) Urine Appearance Clear (Clear) Urine pH 6.5 (5.0-8.0) Ur Specific [place] 1.020 (1.005-1.030) Urine Protein Negative (Negative) Urine Glucose (UA) Negative (Negative) Urine Ketones Negative (Negative) Urine Occult Blood Negative (Negative) Urine Nitrite Negative (Negative) Urine Bilirubin Negative (Negative) Urine Urobilinogen 0.2 (0.2-1.0) Ur Leukocyte Esterase 1+ H (Negative) Urine RBC 5-10 H (0-5) /hpf Urine WBC 5-10 H (0-5) /hpf Ur Epithelial Cells 10-20 H (0-5) /hpf Urine Bacteria Few (FEW) /hpf Urine Mucus Not seen (FEW) /hpf Urine HCG, Qual Positive (NEGATIVE) 09/19/17 09/19/17 Range/Units 18:25 18:25 WBC (3.98-10.04) K/mm3 RBC (3.98-5.22) M/mm3 Hgb (11.2-15.7) gm/L Hct (34.1-44.9) % MCV (79.4-94.8) fl MCH (25.6-32.2) pg MCHC (32.2-35.5) g/dl RDW Std Deviation (36.4-46.3) fL Plt Count (182-369) K/mm3 MPV (9.4-12.3) fl Neutrophils % (Manual) (40-60) % Band Neutrophils % (0-10) % Lymphocytes % (Manual) (20-40) % Atypical Lymphs % % Monocytes % (Manual) (2-10) % Eosinophils % (Manual) (0.7-5.8) % Basophils % (Manual) (0.1-1.2) Platelet Estimate Plt Morphology Comment RBC Morph Comment Sodium 135 L (136-145) mEq/L Potassium 3.7 (3.5-5.1) mEq/L Chloride 104 (98-107) mEq/L Carbon Dioxide 26 (21-32) mEq/L Anion Gap 8.7 (5-15) BUN 11 (7-18) mg/dL Creatinine 0.9 (0.55-1.02) mg/dL Est Cr Clr Drug Dosing 84.03 mL/min Estimated GFR (MDRD) > 60 (>60) mL/min BUN/Creatinine Ratio 12.2 L (14-18) Glucose 83 (74-106) mg/dL Calcium 8.6 (8.5-10.1) mg/dL Total Bilirubin 0.4 (0.2-1.0) mg/dL AST 22 (15-37) U/L ALT 32 (14-59) U/L Alkaline Phosphatase 69 (46-116) U/L C-Reactive Protein 1.5 H* (<1.0) mg/dL Total Protein 7.5 (6.4-8.2) g/dl Albumin 3.4 (3.4-5.0) g/dl Globulin 4.1 gm/dL Albumin/Globulin Ratio 0.8 L (1-2) Lipase 112 (73-393) U/L HCG, Quant 16308.0 mIU/mL Urine Color (Yellow) Urine Appearance (Clear) Urine pH (5.0-8.0) Ur Specific [place] (1.005-1.030) Urine Protein (Negative) Urine Glucose (UA) (Negative) Urine Ketones (Negative) Urine Occult Blood (Negative) Urine Nitrite (Negative) Urine Bilirubin (Negative) Urine Urobilinogen (0.2-1.0) Ur Leukocyte Esterase (Negative) Urine RBC (0-5) /hpf Urine WBC (0-5) /hpf Ur Epithelial Cells (0-5) /hpf Urine Bacteria (FEW) /hpf Urine Mucus (FEW) /hpf Urine HCG, Qual (NEGATIVE) Meds: Medications Generic Name Dose Route Start Last Admin Trade Name Freq PRN Reason Stop Dose Admin Sodium Chloride 10 ml 09/19/17 18:14 09/19/17 18:44 Saline Flush FLUSH 10 ml ASDIRECTED PRN Administration Keep Vein Open Discontinued Medications Generic Name Dose Route Start Last Admin Trade Name Freq PRN Reason Stop Dose Admin Hydromorphone HCl 0.5 mg 09/19/17 18:14 09/19/17 18:42 Dilaudid IVPUSH 09/19/17 18:15 0.5 mg ONETIME ONE Administration Sodium Chloride 1,000 mls @ 999 mls/hr 09/19/17 18:14 09/19/17 18:40 Normal Saline IV 09/19/17 19:14 999 mls/hr ONETIME ONE Administration Ondansetron HCl 4 mg 09/19/17 18:14 09/19/17 18:40 Zofran IVPUSH 09/19/17 18:15 4 mg ONETIME ONE Administration - Re-Assessments/Exams Free Text/Narrative Re-Assessment/Exam: IV established with normal saline 999 MLS per hour, Dilaudid 0.5 mg IVP, and Zofran 4 mg IVP. Initial labs and studies include CBC, chem 14, hCG, lipase, UA, CRP, and two- view of the abdomen. Once the x-ray of the abdomen is obtained most likely was start the oral contrast for CT of the abdomen. Was reported back patient is . X-ray the abdomen has been canceled. She has had a tubal ligation. She has a history of ectopic 2 unknown fallopian tube. Ordered hCG quantitative and also OB transvaginal ultrasound. 09/19/17 20:36 ultrasound OB transvaginal impression: Single intrauterine gestation. States as noted above. Small corpus luteum cyst with left ovary which is incidental and measuring 2.2 cm. No complicating process by ultrasound exam. Departure - Departure Time of Disposition: 20:49 Disposition: Home, Self-Care 01 Condition: Good Clinical Impression: Qualifiers: Weeks of gestation: less than 8 weeks Qualified Code(s): Z3A.01 - Less than 8 weeks gestation of Abdominal pain Qualifiers: Abdominal location: generalized Qualified Code(s): R10.84 - Generalized abdominal pain - Discharge Information Instructions: Abdominal Pain, Adult, [id number], First Trimester of , [id number] Referrals: Penny Dunlap, [facility] [Primary Care Provider] - Forms: ED Department Discharge Additional Instructions: You are 7 wks 1 day . Please followup with OBGYN specialists of your choice. Start taking vitamins. Stop smoking. Refrain from alcohol use. Take tylenol 650 mg every 6 hrs for pain. Return to the E.D. if you develop any new or worsening symptoms. - My Orders Last 24 Hours: My Active Orders 09/19/17 18:14 Peripheral IV Care [RC] . DIRECTED Sodium Chloride 0.9% [Saline Flush] 10 ml FLUSH ASDIRECTED PRN Peripheral IV Insertion Adult [OM.PC] Routine 09/19/17 18:18 CULTURE URINE [RM] Stat HCG QUALITATIVE,URINE [URCHEM] Stat 09/19/17 20:42 Chest PE [Ang Chest] [CT] Stat - Assessment/Plan Last 24 Hours: My Active Orders 09/19/17 18:14 Peripheral IV Care [RC] . DIRECTED Sodium Chloride 0.9% [Saline Flush] 10 ml FLUSH ASDIRECTED PRN Peripheral IV Insertion Adult [OM.PC] Routine 09/19/17 18:18 CULTURE URINE [RM] Stat HCG QUALITATIVE,URINE [URCHEM] Stat 09/19/17 20:42 Chest PE [Ang Chest] [CT] Stat ED HPI GENERAL MEDICAL PROBLEM - General Chief Complaint: Abdominal Pain Stated Complaint: STOMACH & SIDE PAIN Time Seen by Provider: 09/19/17 18:03 Source of Information: Reports: Patient History Limitations: Reports: No Limitations - History of Present Illness INITIAL COMMENTS - FREE TEXT/NARRATIVE: Patient is a 37-year-old female who presents ED complaining of pain just left of the periumbilical region that radiates across to the right side of her abdomen. Pain is sharp with a crampy sensation that waxes and wanes in intensity. This started abruptly 4 days ago and has progressively got worse. She has been nauseous with difficulties in keeping any liquids or foods down. She feels fatigued and tired. The been no documented fever and or dysuria. She is concerned since she missed her menstrual cycle in July that she may be . She's had a tubal ligation. She has been spotting intermittently. No abnormal vaginal discharge. Pain is quite severe at its peak. She has not taken any medications for this. She takes B12 for pernicious anemia. She smokes one pack per day. Denies any alcohol or recreational drug use. She is mostly under pain contract for burst fractures to the thoracic spine. She has not followed through with this. Her primary care provider is Dr. Dunlap. 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 Hematologic History: Reports: Other (See Below) Other Hematologic History: pernicoius anemia Oncologic (Cancer) History: Reports: None - Infectious Disease History Infectious Disease History: Reports: None Social & Family History - Family History Family Medical History: Noncontributory - Tobacco Use Smoking Status *Q: Current Every Day Smoker Years of Tobacco use: 15 Packs/Tins Daily: 1 Used Tobacco, but Quit: No Second Hand Smoke Exposure: Yes - Caffeine Use Caffeine Use: Reports: Soda - Alcohol Use Days Per Week of Alcohol Use: 0 - Recreational Drug Use Recreational Drug Use: No Recreational Drug Type: Reports: Fentanyl, Morphine ED ROS GENERAL - Review of Systems Review Of Systems: See Below Constitutional: Reports: Malaise, Fatigue, Decreased Appetite. Denies: Fever, Chills HEENT: Reports: No Symptoms Respiratory: Reports: No Symptoms Cardiovascular: Reports: No Symptoms GI/Abdominal: Reports: Abdominal Pain, Decreased Appetite, Nausea. Denies: Black Stool, Bloody Stool, Constipation, Diarrhea, Hematemesis, Hematochezia, Vomiting : Reports: No Symptoms Musculoskeletal: Reports: No Symptoms Skin: Reports: No Symptoms Neurological: Reports: Dizziness (Intermittent). Denies: Headache, Numbness, Syncope, Tingling, Difficulty Walking Psychiatric: Reports: Anxiety ED EXAM, GI/ABD - Physical Exam Exam: See Below Exam Limited By: No Limitations General Appearance: Alert, WD/WN, Mild Distress Ears: Hearing Grossly Normal Nose: Normal Inspection Throat/Mouth: Normal Voice, No Airway Compromise Head: Atraumatic, Normocephalic Neck: Normal Inspection, Supple Respiratory/Chest: No Respiratory Distress, Lungs Clear, Normal Breath Sounds, No Accessory Muscle Use, Chest Non-Tender Cardiovascular: Normal Peripheral Pulses, Regular Rate, Rhythm GI/Abdominal Exam: Normal Bowel Sounds, Soft, No Organomegaly, No Distention, Tender (On the left side of the periventricular region. No McBurney's point tenderness, Rojo sign, or adnexal tenderness.) Back Exam: Normal Inspection. No: CVA Tenderness (L), CVA Tenderness (R) Neurological: Alert, Oriented, CN II-XII Intact, Normal Cognition, No Motor/ Sensory Deficits Psychiatric: Normal Affect, Normal Mood Skin Exam: Warm, Dry, Intact, Normal Color Course - Vital Signs Last Recorded V/S: Last Vital Signs Temp 98.4 F 09/19/17 17:08 Pulse 84 09/19/17 17:08 Resp 18 09/19/17 17:08 BP 133/76 09/19/17 17:08 Pulse Ox 100 09/19/17 17:08 - Orders/Labs/Meds Orders: Active Orders 24 hr Category Date Time Status Peripheral IV Care [RC] . DIRECTED Care 09/19/17 18:14 Active Chest PE [Ang Chest] [CT] Stat Exams 09/19/17 20:42 Stop Req CULTURE URINE [RM] Stat Lab 09/19/17 18:18 Received HCG QUALITATIVE,URINE [URCHEM] Stat Lab 09/19/17 18:18 Ordered Sodium Chloride 0.9% [Saline Flush] Med 09/19/17 18:14 Active 10 ml FLUSH ASDIRECTED PRN Peripheral IV Insertion Adult [OM.PC] Routine Oth 09/19/17 18:14 Ordered Medication Orders Sodium Chloride (Saline Flush) 10 ml FLUSH ASDIRECTED PRN PRN Reason: Keep Vein Open Last Admin: 09/19/17 18:44 Dose: 10 ml Labs: Laboratory Tests 09/19/17 09/19/17 09/19/17 Range/Units 18:18 18:18 18:25 WBC 10.27 H (3.98-10.04) K/mm3 RBC 4.29 (3.98-5.22) M/mm3 Hgb 13.4 (11.2-15.7) gm/L Hct 41.3 (34.1-44.9) % MCV 96.3 H (79.4-94.8) fl MCH 31.2 (25.6-32.2) pg MCHC 32.4 (32.2-35.5) g/dl RDW Std Deviation 45.0 (36.4-46.3) fL Plt Count 233 (182-369) K/mm3 MPV 11.1 (9.4-12.3) fl Neutrophils % (Manual) 65 H (40-60) % Band Neutrophils % 0 (0-10) % Lymphocytes % (Manual) 28 (20-40) % Atypical Lymphs % 0 % Monocytes % (Manual) 4 (2-10) % Eosinophils % (Manual) 2 (0.7-5.8) % Basophils % (Manual) 1 (0.1-1.2) Platelet Estimate Adequate Plt Morphology Comment Normal RBC Morph Comment Normal Sodium (136-145) mEq/L Potassium (3.5-5.1) mEq/L Chloride (98-107) mEq/L Carbon Dioxide (21-32) mEq/L Anion Gap (5-15) BUN (7-18) mg/dL Creatinine (0.55-1.02) mg/dL Est Cr Clr Drug Dosing mL/min Estimated GFR (MDRD) (>60) mL/min BUN/Creatinine Ratio (14-18) Glucose (74-106) mg/dL Calcium (8.5-10.1) mg/dL Total Bilirubin (0.2-1.0) mg/dL AST (15-37) U/L ALT (14-59) U/L Alkaline Phosphatase (46-116) U/L C-Reactive Protein (<1.0) mg/dL Total Protein (6.4-8.2) g/dl Albumin (3.4-5.0) g/dl Globulin gm/dL Albumin/Globulin Ratio (1-2) Lipase (73-393) U/L HCG, Quant mIU/mL Urine Color Yellow (Yellow) Urine Appearance Clear (Clear) Urine pH 6.5 (5.0-8.0) Ur Specific [place] 1.020 (1.005-1.030) Urine Protein Negative (Negative) Urine Glucose (UA) Negative (Negative) Urine Ketones Negative (Negative) Urine Occult Blood Negative (Negative) Urine Nitrite Negative (Negative) Urine Bilirubin Negative (Negative) Urine Urobilinogen 0.2 (0.2-1.0) Ur Leukocyte Esterase 1+ H (Negative) Urine RBC 5-10 H (0-5) /hpf Urine WBC 5-10 H (0-5) /hpf Ur Epithelial Cells 10-20 H (0-5) /hpf Urine Bacteria Few (FEW) /hpf Urine Mucus Not seen (FEW) /hpf Urine HCG, Qual Positive (NEGATIVE) 09/19/17 09/19/17 Range/Units 18:25 18:25 WBC (3.98-10.04) K/mm3 RBC (3.98-5.22) M/mm3 Hgb (11.2-15.7) gm/L Hct (34.1-44.9) % MCV (79.4-94.8) fl MCH (25.6-32.2) pg MCHC (32.2-35.5) g/dl RDW Std Deviation (36.4-46.3) fL Plt Count (182-369) K/mm3 MPV (9.4-12.3) fl Neutrophils % (Manual) (40-60) % Band Neutrophils % (0-10) % Lymphocytes % (Manual) (20-40) % Atypical Lymphs % % Monocytes % (Manual) (2-10) % Eosinophils % (Manual) (0.7-5.8) % Basophils % (Manual) (0.1-1.2) Platelet Estimate Plt Morphology Comment RBC Morph Comment Sodium 135 L (136-145) mEq/L Potassium 3.7 (3.5-5.1) mEq/L Chloride 104 (98-107) mEq/L Carbon Dioxide 26 (21-32) mEq/L Anion Gap 8.7 (5-15) BUN 11 (7-18) mg/dL Creatinine 0.9 (0.55-1.02) mg/dL Est Cr Clr Drug Dosing 84.03 mL/min Estimated GFR (MDRD) > 60 (>60) mL/min BUN/Creatinine Ratio 12.2 L (14-18) Glucose 83 (74-106) mg/dL Calcium 8.6 (8.5-10.1) mg/dL Total Bilirubin 0.4 (0.2-1.0) mg/dL AST 22 (15-37) U/L ALT 32 (14-59) U/L Alkaline Phosphatase 69 (46-116) U/L C-Reactive Protein 1.5 H* (<1.0) mg/dL Total Protein 7.5 (6.4-8.2) g/dl Albumin 3.4 (3.4-5.0) g/dl Globulin 4.1 gm/dL Albumin/Globulin Ratio 0.8 L (1-2) Lipase 112 (73-393) U/L HCG, Quant 37654.0 mIU/mL Urine Color (Yellow) Urine Appearance (Clear) Urine pH (5.0-8.0) Ur Specific [place] (1.005-1.030) Urine Protein (Negative) Urine Glucose (UA) (Negative) Urine Ketones (Negative) Urine Occult Blood (Negative) Urine Nitrite (Negative) Urine Bilirubin (Negative) Urine Urobilinogen (0.2-1.0) Ur Leukocyte Esterase (Negative) Urine RBC (0-5) /hpf Urine WBC (0-5) /hpf Ur Epithelial Cells (0-5) /hpf Urine Bacteria (FEW) /hpf Urine Mucus (FEW) /hpf Urine HCG, Qual (NEGATIVE) Meds: Medications Generic Name Dose Route Start Last Admin Trade Name Freq PRN Reason Stop Dose Admin Sodium Chloride 10 ml 09/19/17 18:14 09/19/17 18:44 Saline Flush FLUSH 10 ml ASDIRECTED PRN Administration Keep Vein Open Discontinued Medications Generic Name Dose Route Start Last Admin Trade Name Olga PRN Reason Stop Dose Admin Hydromorphone HCl 0.5 mg 09/19/17 18:14 09/19/17 18:42 Dilaudid IVPUSH 09/19/17 18:15 0.5 mg ONETIME ONE Administration Sodium Chloride 1,000 mls @ 999 mls/hr 09/19/17 18:14 09/19/17 18:40 Normal Saline IV 09/19/17 19:14 999 mls/hr ONETIME ONE Administration Ondansetron HCl 4 mg 09/19/17 18:14 09/19/17 18:40 Zofran IVPUSH 09/19/17 18:15 4 mg ONETIME ONE Administration - Re-Assessments/Exams Free Text/Narrative Re-Assessment/Exam: IV established with normal saline 999 MLS per hour, Dilaudid 0.5 mg IVP, and Zofran 4 mg IVP. Initial labs and studies include CBC, chem 14, hCG, lipase, UA, CRP, and two- view of the abdomen. Once the x-ray of the abdomen is obtained most likely was start the oral contrast for CT of the abdomen. Was reported back patient is . X-ray the abdomen has been canceled. She has had a tubal ligation. She has a history of ectopic 2 unknown fallopian tube. Ordered hCG quantitative and also OB transvaginal ultrasound. 09/19/17 20:36 ultrasound OB transvaginal impression: Single intrauterine gestation. States as noted above. Small corpus luteum cyst with left ovary which is incidental and measuring 2.2 cm. No complicating process by ultrasound exam. Departure - Departure Time of Disposition: 20:49 Disposition: Home, Self-Care 01 Condition: Good Clinical Impression: Qualifiers: Weeks of gestation: less than 8 weeks Qualified Code(s): Z3A.01 - Less than 8 weeks gestation of Abdominal pain Qualifiers: Abdominal location: generalized Qualified Code(s): R10.84 - Generalized abdominal pain - Discharge Information Instructions: Abdominal Pain, Adult, [id number], First Trimester of , [id number] Referrals: Penny Dunlap [facility] [Primary Care Provider] - Forms: ED Department Discharge Additional Instructions: You are 7 wks 1 day . Please followup with OBGYN specialists of your choice. Start taking vitamins. Stop smoking. Refrain from alcohol use. Take tylenol 650 mg every 6 hrs for pain. Return to the E.D. if you develop any new or worsening symptoms. - My Orders Last 24 Hours: My Active Orders 09/19/17 18:14 Peripheral IV Care [RC] . DIRECTED Sodium Chloride 0.9% [Saline Flush] 10 ml FLUSH ASDIRECTED PRN Peripheral IV Insertion Adult [OM.PC] Routine 09/19/17 18:18 CULTURE URINE [RM] Stat HCG QUALITATIVE,URINE [URCHEM] Stat 09/19/17 20:42 Chest PE [Ang Chest] [CT] Stat - Assessment/Plan Last 24 Hours: My Active Orders 09/19/17 18:14 Peripheral IV Care [RC] . DIRECTED Sodium Chloride 0.9% [Saline Flush] 10 ml FLUSH ASDIRECTED PRN Peripheral IV Insertion Adult [OM.PC] Routine 09/19/17 18:18 CULTURE URINE [RM] Stat HCG QUALITATIVE,URINE [URCHEM] Stat 09/19/17 20:42 Chest PE [Ang Chest] [CT] Stat ED HPI GENERAL MEDICAL PROBLEM - General Chief Complaint: Abdominal Pain Stated Complaint: STOMACH & SIDE PAIN Time Seen by Provider: 09/19/17 18:03 Source of Information: Reports: Patient History Limitations: Reports: No Limitations - History of Present Illness INITIAL COMMENTS - FREE TEXT/NARRATIVE: Patient is a 37-year-old female who presents ED complaining of pain just left of the periumbilical region that radiates across to the right side of her abdomen. Pain is sharp with a crampy sensation that waxes and wanes in intensity. This started abruptly 4 days ago and has progressively got worse. She has been nauseous with difficulties in keeping any liquids or foods down. She feels fatigued and tired. The been no documented fever and or dysuria. She is concerned since she missed her menstrual cycle in July that she may be . She's had a tubal ligation. She has been spotting intermittently. No abnormal vaginal discharge. Pain is quite severe at its peak. She has not taken any medications for this. She takes B12 for pernicious anemia. She smokes one pack per day. Denies any alcohol or recreational drug use. She is mostly under pain contract for burst fractures to the thoracic spine. She has not followed through with this. Her primary care provider is Dr. Dunlap. 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 Hematologic History: Reports: Other (See Below) Other Hematologic History: pernicoius anemia Oncologic (Cancer) History: Reports: None - Infectious Disease History Infectious Disease History: Reports: None Social & Family History - Family History Family Medical History: Noncontributory - Tobacco Use Smoking Status *Q: Current Every Day Smoker Years of Tobacco use: 15 Packs/Tins Daily: 1 Used Tobacco, but Quit: No Second Hand Smoke Exposure: Yes - Caffeine Use Caffeine Use: Reports: Soda - Alcohol Use Days Per Week of Alcohol Use: 0 - Recreational Drug Use Recreational Drug Use: No Recreational Drug Type: Reports: Fentanyl, Morphine ED ROS GENERAL - Review of Systems Review Of Systems: See Below Constitutional: Reports: Malaise, Fatigue, Decreased Appetite. Denies: Fever, Chills HEENT: Reports: No Symptoms Respiratory: Reports: No Symptoms Cardiovascular: Reports: No Symptoms GI/Abdominal: Reports: Abdominal Pain, Decreased Appetite, Nausea. Denies: Black Stool, Bloody Stool, Constipation, Diarrhea, Hematemesis, Hematochezia, Vomiting : Reports: No Symptoms Musculoskeletal: Reports: No Symptoms Skin: Reports: No Symptoms Neurological: Reports: Dizziness (Intermittent). Denies: Headache, Numbness, Syncope, Tingling, Difficulty Walking Psychiatric: Reports: Anxiety ED EXAM, GI/ABD - Physical Exam Exam: See Below Exam Limited By: No Limitations General Appearance: Alert, WD/WN, Mild Distress Ears: Hearing Grossly Normal Nose: Normal Inspection Throat/Mouth: Normal Voice, No Airway Compromise Head: Atraumatic, Normocephalic Neck: Normal Inspection, Supple Respiratory/Chest: No Respiratory Distress, Lungs Clear, Normal Breath Sounds, No Accessory Muscle Use, Chest Non-Tender Cardiovascular: Normal Peripheral Pulses, Regular Rate, Rhythm GI/Abdominal Exam: Normal Bowel Sounds, Soft, No Organomegaly, No Distention, Tender (On the left side of the periventricular region. No McBurney's point tenderness, Rojo sign, or adnexal tenderness.) Back Exam: Normal Inspection. No: CVA Tenderness (L), CVA Tenderness (R) Neurological: Alert, Oriented, CN II-XII Intact, Normal Cognition, No Motor/ Sensory Deficits Psychiatric: Normal Affect, Normal Mood Skin Exam: Warm, Dry, Intact, Normal Color Course - Vital Signs Last Recorded V/S: Last Vital Signs Temp 98.4 F 09/19/17 17:08 Pulse 84 09/19/17 17:08 Resp 18 09/19/17 17:08 BP 133/76 09/19/17 17:08 Pulse Ox 100 09/19/17 17:08 - Orders/Labs/Meds Orders: Active Orders 24 hr Category Date Time Status Peripheral IV Care [RC] . DIRECTED Care 09/19/17 18:14 Active Chest PE [Ang Chest] [CT] Stat Exams 09/19/17 20:42 Stop Req CULTURE URINE [RM] Stat Lab 09/19/17 18:18 Received HCG QUALITATIVE,URINE [URCHEM] Stat Lab 09/19/17 18:18 Ordered Sodium Chloride 0.9% [Saline Flush] Med 09/19/17 18:14 Active 10 ml FLUSH ASDIRECTED PRN Peripheral IV Insertion Adult [OM.PC] Routine Oth 09/19/17 18:14 Ordered Medication Orders Sodium Chloride (Saline Flush) 10 ml FLUSH ASDIRECTED PRN PRN Reason: Keep Vein Open Last Admin: 09/19/17 18:44 Dose: 10 ml Labs: Laboratory Tests 09/19/17 09/19/17 09/19/17 Range/Units 18:18 18:18 18:25 WBC 10.27 H (3.98-10.04) K/mm3 RBC 4.29 (3.98-5.22) M/mm3 Hgb 13.4 (11.2-15.7) gm/L Hct 41.3 (34.1-44.9) % MCV 96.3 H (79.4-94.8) fl MCH 31.2 (25.6-32.2) pg MCHC 32.4 (32.2-35.5) g/dl RDW Std Deviation 45.0 (36.4-46.3) fL Plt Count 233 (182-369) K/mm3 MPV 11.1 (9.4-12.3) fl Neutrophils % (Manual) 65 H (40-60) % Band Neutrophils % 0 (0-10) % Lymphocytes % (Manual) 28 (20-40) % Atypical Lymphs % 0 % Monocytes % (Manual) 4 (2-10) % Eosinophils % (Manual) 2 (0.7-5.8) % Basophils % (Manual) 1 (0.1-1.2) Platelet Estimate Adequate Plt Morphology Comment Normal RBC Morph Comment Normal Sodium (136-145) mEq/L Potassium (3.5-5.1) mEq/L Chloride (98-107) mEq/L Carbon Dioxide (21-32) mEq/L Anion Gap (5-15) BUN (7-18) mg/dL Creatinine (0.55-1.02) mg/dL Est Cr Clr Drug Dosing mL/min Estimated GFR (MDRD) (>60) mL/min BUN/Creatinine Ratio (14-18) Glucose (74-106) mg/dL Calcium (8.5-10.1) mg/dL Total Bilirubin (0.2-1.0) mg/dL AST (15-37) U/L ALT (14-59) U/L Alkaline Phosphatase (46-116) U/L C-Reactive Protein (<1.0) mg/dL Total Protein (6.4-8.2) g/dl Albumin (3.4-5.0) g/dl Globulin gm/dL Albumin/Globulin Ratio (1-2) Lipase (73-393) U/L HCG, Quant mIU/mL Urine Color Yellow (Yellow) Urine Appearance Clear (Clear) Urine pH 6.5 (5.0-8.0) Ur Specific [place] 1.020 (1.005-1.030) Urine Protein Negative (Negative) Urine Glucose (UA) Negative (Negative) Urine Ketones Negative (Negative) Urine Occult Blood Negative (Negative) Urine Nitrite Negative (Negative) Urine Bilirubin Negative (Negative) Urine Urobilinogen 0.2 (0.2-1.0) Ur Leukocyte Esterase 1+ H (Negative) Urine RBC 5-10 H (0-5) /hpf Urine WBC 5-10 H (0-5) /hpf Ur Epithelial Cells 10-20 H (0-5) /hpf Urine Bacteria Few (FEW) /hpf Urine Mucus Not seen (FEW) /hpf Urine HCG, Qual Positive (NEGATIVE) 09/19/17 09/19/17 Range/Units 18:25 18:25 WBC (3.98-10.04) K/mm3 RBC (3.98-5.22) M/mm3 Hgb (11.2-15.7) gm/L Hct (34.1-44.9) % MCV (79.4-94.8) fl MCH (25.6-32.2) pg MCHC (32.2-35.5) g/dl RDW Std Deviation (36.4-46.3) fL Plt Count (182-369) K/mm3 MPV (9.4-12.3) fl Neutrophils % (Manual) (40-60) % Band Neutrophils % (0-10) % Lymphocytes % (Manual) (20-40) % Atypical Lymphs % % Monocytes % (Manual) (2-10) % Eosinophils % (Manual) (0.7-5.8) % Basophils % (Manual) (0.1-1.2) Platelet Estimate Plt Morphology Comment RBC Morph Comment Sodium 135 L (136-145) mEq/L Potassium 3.7 (3.5-5.1) mEq/L Chloride 104 (98-107) mEq/L Carbon Dioxide 26 (21-32) mEq/L Anion Gap 8.7 (5-15) BUN 11 (7-18) mg/dL Creatinine 0.9 (0.55-1.02) mg/dL Est Cr Clr Drug Dosing 84.03 mL/min Estimated GFR (MDRD) > 60 (>60) mL/min BUN/Creatinine Ratio 12.2 L (14-18) Glucose 83 (74-106) mg/dL Calcium 8.6 (8.5-10.1) mg/dL Total Bilirubin 0.4 (0.2-1.0) mg/dL AST 22 (15-37) U/L ALT 32 (14-59) U/L Alkaline Phosphatase 69 (46-116) U/L C-Reactive Protein 1.5 H* (<1.0) mg/dL Total Protein 7.5 (6.4-8.2) g/dl Albumin 3.4 (3.4-5.0) g/dl Globulin 4.1 gm/dL Albumin/Globulin Ratio 0.8 L (1-2) Lipase 112 (73-393) U/L HCG, Quant 35817.0 mIU/mL Urine Color (Yellow) Urine Appearance (Clear) Urine pH (5.0-8.0) Ur Specific [place] (1.005-1.030) Urine Protein (Negative) Urine Glucose (UA) (Negative) Urine Ketones (Negative) Urine Occult Blood (Negative) Urine Nitrite (Negative) Urine Bilirubin (Negative) Urine Urobilinogen (0.2-1.0) Ur Leukocyte Esterase (Negative) Urine RBC (0-5) /hpf Urine WBC (0-5) /hpf Ur Epithelial Cells (0-5) /hpf Urine Bacteria (FEW) /hpf Urine Mucus (FEW) /hpf Urine HCG, Qual (NEGATIVE) Meds: Medications Generic Name Dose Route Start Last Admin Trade Name Freq PRN Reason Stop Dose Admin Sodium Chloride 10 ml 09/19/17 18:14 09/19/17 18:44 Saline Flush FLUSH 10 ml ASDIRECTED PRN Administration Keep Vein Open Discontinued Medications Generic Name Dose Route Start Last Admin Trade Name Freq PRN Reason Stop Dose Admin Hydromorphone HCl 0.5 mg 09/19/17 18:14 09/19/17 18:42 Dilaudid IVPUSH 09/19/17 18:15 0.5 mg ONETIME ONE Administration Sodium Chloride 1,000 mls @ 999 mls/hr 09/19/17 18:14 09/19/17 18:40 Normal Saline IV 09/19/17 19:14 999 mls/hr ONETIME ONE Administration Ondansetron HCl 4 mg 09/19/17 18:14 09/19/17 18:40 Zofran IVPUSH 09/19/17 18:15 4 mg ONETIME ONE Administration - Re-Assessments/Exams Free Text/Narrative Re-Assessment/Exam: IV established with normal saline 999 MLS per hour, Dilaudid 0.5 mg IVP, and Zofran 4 mg IVP. Initial labs and studies include CBC, chem 14, hCG, lipase, UA, CRP, and two- view of the abdomen. Once the x-ray of the abdomen is obtained most likely was start the oral contrast for CT of the abdomen. Was reported back patient is . X-ray the abdomen has been canceled. She has had a tubal ligation. She has a history of ectopic 2 unknown fallopian tube. Ordered hCG quantitative and also OB transvaginal ultrasound. 09/19/17 20:36 ultrasound OB transvaginal impression: Single intrauterine gestation. States as noted above. Small corpus luteum cyst with left ovary which is incidental and measuring 2.2 cm. No complicating process by ultrasound exam. Departure - Departure Time of Disposition: 20:49 Disposition: Home, Self-Care 01 Condition: Good Clinical Impression: Qualifiers: Weeks of gestation: less than 8 weeks Qualified Code(s): Z3A.01 - Less than 8 weeks gestation of Abdominal pain Qualifiers: Abdominal location: generalized Qualified Code(s): R10.84 - Generalized abdominal pain - Discharge Information Instructions: Abdominal Pain, Adult, [id number], First Trimester of , [id number] Referrals: Penny Dunlap, [facility] [Primary Care Provider] - Forms: ED Department Discharge Additional Instructions: You are 7 wks 1 day . Please followup with OBGYN specialists of your choice. Start taking vitamins. Stop smoking. Refrain from alcohol use. Take tylenol 650 mg every 6 hrs for pain. Return to the E.D. if you develop any new or worsening symptoms. - My Orders Last 24 Hours: My Active Orders 09/19/17 18:14 Peripheral IV Care [RC] . DIRECTED Sodium Chloride 0.9% [Saline Flush] 10 ml FLUSH ASDIRECTED PRN Peripheral IV Insertion Adult [OM.PC] Routine 09/19/17 18:18 CULTURE URINE [RM] Stat HCG QUALITATIVE,URINE [URCHEM] Stat 09/19/17 20:42 Chest PE [Ang Chest] [CT] Stat - Assessment/Plan Last 24 Hours: My Active Orders 09/19/17 18:14 Peripheral IV Care [RC] . DIRECTED Sodium Chloride 0.9% [Saline Flush] 10 ml FLUSH ASDIRECTED PRN Peripheral IV Insertion Adult [OM.PC] Routine 09/19/17 18:18 CULTURE URINE [RM] Stat HCG QUALITATIVE,URINE [URCHEM] Stat 09/19/17 20:42 Chest PE [Ang Chest] [CT] Stat ED HPI GENERAL MEDICAL PROBLEM - General Chief Complaint: Abdominal Pain Stated Complaint: STOMACH & SIDE PAIN Time Seen by Provider: 09/19/17 18:03 Source of Information: Reports: Patient History Limitations: Reports: No Limitations - History of Present Illness INITIAL COMMENTS - FREE TEXT/NARRATIVE: Patient is a 37-year-old female who presents ED complaining of pain just left of the periumbilical region that radiates across to the right side of her abdomen. Pain is sharp with a crampy sensation that waxes and wanes in intensity. This started abruptly 4 days ago and has progressively got worse. She has been nauseous with difficulties in keeping any liquids or foods down. She feels fatigued and tired. The been no documented fever and or dysuria. She is concerned since she missed her menstrual cycle in July that she may be . She's had a tubal ligation. She has been spotting intermittently. No abnormal vaginal discharge. Pain is quite severe at its peak. She has not taken any medications for this. She takes B12 for pernicious anemia. She smokes one pack per day. Denies any alcohol or recreational drug use. She is mostly under pain contract for burst fractures to the thoracic spine. She has not followed through with this. Her primary care provider is Dr. Dunlap. 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 Hematologic History: Reports: Other (See Below) Other Hematologic History: pernicoius anemia Oncologic (Cancer) History: Reports: None - Infectious Disease History Infectious Disease History: Reports: None Social & Family History - Family History Family Medical History: Noncontributory - Tobacco Use Smoking Status *Q: Current Every Day Smoker Years of Tobacco use: 15 Packs/Tins Daily: 1 Used Tobacco, but Quit: No Second Hand Smoke Exposure: Yes - Caffeine Use Caffeine Use: Reports: Soda - Alcohol Use Days Per Week of Alcohol Use: 0 - Recreational Drug Use Recreational Drug Use: No Recreational Drug Type: Reports: Fentanyl, Morphine ED ROS GENERAL - Review of Systems Review Of Systems: See Below Constitutional: Reports: Malaise, Fatigue, Decreased Appetite. Denies: Fever, Chills HEENT: Reports: No Symptoms Respiratory: Reports: No Symptoms Cardiovascular: Reports: No Symptoms GI/Abdominal: Reports: Abdominal Pain, Decreased Appetite, Nausea. Denies: Black Stool, Bloody Stool, Constipation, Diarrhea, Hematemesis, Hematochezia, Vomiting : Reports: No Symptoms Musculoskeletal: Reports: No Symptoms Skin: Reports: No Symptoms Neurological: Reports: Dizziness (Intermittent). Denies: Headache, Numbness, Syncope, Tingling, Difficulty Walking Psychiatric: Reports: Anxiety ED EXAM, GI/ABD - Physical Exam Exam: See Below Exam Limited By: No Limitations General Appearance: Alert, WD/WN, Mild Distress Ears: Hearing Grossly Normal Nose: Normal Inspection Throat/Mouth: Normal Voice, No Airway Compromise Head: Atraumatic, Normocephalic Neck: Normal Inspection, Supple Respiratory/Chest: No Respiratory Distress, Lungs Clear, Normal Breath Sounds, No Accessory Muscle Use, Chest Non-Tender Cardiovascular: Normal Peripheral Pulses, Regular Rate, Rhythm GI/Abdominal Exam: Normal Bowel Sounds, Soft, No Organomegaly, No Distention, Tender (On the left side of the periventricular region. No McBurney's point tenderness, Rojo sign, or adnexal tenderness.) Back Exam: Normal Inspection. No: CVA Tenderness (L), CVA Tenderness (R) Neurological: Alert, Oriented, CN II-XII Intact, Normal Cognition, No Motor/ Sensory Deficits Psychiatric: Normal Affect, Normal Mood Skin Exam: Warm, Dry, Intact, Normal Color Course - Vital Signs Last Recorded V/S: Last Vital Signs Temp 98.4 F 09/19/17 17:08 Pulse 84 09/19/17 17:08 Resp 18 09/19/17 17:08 BP 133/76 09/19/17 17:08 Pulse Ox 100 09/19/17 17:08 - Orders/Labs/Meds Orders: Active Orders 24 hr Category Date Time Status Peripheral IV Care [RC] . DIRECTED Care 09/19/17 18:14 Active Chest PE [Ang Chest] [CT] Stat Exams 09/19/17 20:42 Stop Req CULTURE URINE [RM] Stat Lab 09/19/17 18:18 Received HCG QUALITATIVE,URINE [URCHEM] Stat Lab 09/19/17 18:18 Ordered Sodium Chloride 0.9% [Saline Flush] Med 09/19/17 18:14 Active 10 ml FLUSH ASDIRECTED PRN Peripheral IV Insertion Adult [OM.PC] Routine Oth 09/19/17 18:14 Ordered Medication Orders Sodium Chloride (Saline Flush) 10 ml FLUSH ASDIRECTED PRN PRN Reason: Keep Vein Open Last Admin: 09/19/17 18:44 Dose: 10 ml Labs: Laboratory Tests 09/19/17 09/19/17 09/19/17 Range/Units 18:18 18:18 18:25 WBC 10.27 H (3.98-10.04) K/mm3 RBC 4.29 (3.98-5.22) M/mm3 Hgb 13.4 (11.2-15.7) gm/L Hct 41.3 (34.1-44.9) % MCV 96.3 H (79.4-94.8) fl MCH 31.2 (25.6-32.2) pg MCHC 32.4 (32.2-35.5) g/dl RDW Std Deviation 45.0 (36.4-46.3) fL Plt Count 233 (182-369) K/mm3 MPV 11.1 (9.4-12.3) fl Neutrophils % (Manual) 65 H (40-60) % Band Neutrophils % 0 (0-10) % Lymphocytes % (Manual) 28 (20-40) % Atypical Lymphs % 0 % Monocytes % (Manual) 4 (2-10) % Eosinophils % (Manual) 2 (0.7-5.8) % Basophils % (Manual) 1 (0.1-1.2) Platelet Estimate Adequate Plt Morphology Comment Normal RBC Morph Comment Normal Sodium (136-145) mEq/L Potassium (3.5-5.1) mEq/L Chloride (98-107) mEq/L Carbon Dioxide (21-32) mEq/L Anion Gap (5-15) BUN (7-18) mg/dL Creatinine (0.55-1.02) mg/dL Est Cr Clr Drug Dosing mL/min Estimated GFR (MDRD) (>60) mL/min BUN/Creatinine Ratio (14-18) Glucose (74-106) mg/dL Calcium (8.5-10.1) mg/dL Total Bilirubin (0.2-1.0) mg/dL AST (15-37) U/L ALT (14-59) U/L Alkaline Phosphatase (46-116) U/L C-Reactive Protein (<1.0) mg/dL Total Protein (6.4-8.2) g/dl Albumin (3.4-5.0) g/dl Globulin gm/dL Albumin/Globulin Ratio (1-2) Lipase (73-393) U/L HCG, Quant mIU/mL Urine Color Yellow (Yellow) Urine Appearance Clear (Clear) Urine pH 6.5 (5.0-8.0) Ur Specific [place] 1.020 (1.005-1.030) Urine Protein Negative (Negative) Urine Glucose (UA) Negative (Negative) Urine Ketones Negative (Negative) Urine Occult Blood Negative (Negative) Urine Nitrite Negative (Negative) Urine Bilirubin Negative (Negative) Urine Urobilinogen 0.2 (0.2-1.0) Ur Leukocyte Esterase 1+ H (Negative) Urine RBC 5-10 H (0-5) /hpf Urine WBC 5-10 H (0-5) /hpf Ur Epithelial Cells 10-20 H (0-5) /hpf Urine Bacteria Few (FEW) /hpf Urine Mucus Not seen (FEW) /hpf Urine HCG, Qual Positive (NEGATIVE) 09/19/17 09/19/17 Range/Units 18:25 18:25 WBC (3.98-10.04) K/mm3 RBC (3.98-5.22) M/mm3 Hgb (11.2-15.7) gm/L Hct (34.1-44.9) % MCV (79.4-94.8) fl MCH (25.6-32.2) pg MCHC (32.2-35.5) g/dl RDW Std Deviation (36.4-46.3) fL Plt Count (182-369) K/mm3 MPV (9.4-12.3) fl Neutrophils % (Manual) (40-60) % Band Neutrophils % (0-10) % Lymphocytes % (Manual) (20-40) % Atypical Lymphs % % Monocytes % (Manual) (2-10) % Eosinophils % (Manual) (0.7-5.8) % Basophils % (Manual) (0.1-1.2) Platelet Estimate Plt Morphology Comment RBC Morph Comment Sodium 135 L (136-145) mEq/L Potassium 3.7 (3.5-5.1) mEq/L Chloride 104 (98-107) mEq/L Carbon Dioxide 26 (21-32) mEq/L Anion Gap 8.7 (5-15) BUN 11 (7-18) mg/dL Creatinine 0.9 (0.55-1.02) mg/dL Est Cr Clr Drug Dosing 84.03 mL/min Estimated GFR (MDRD) > 60 (>60) mL/min BUN/Creatinine Ratio 12.2 L (14-18) Glucose 83 (74-106) mg/dL Calcium 8.6 (8.5-10.1) mg/dL Total Bilirubin 0.4 (0.2-1.0) mg/dL AST 22 (15-37) U/L ALT 32 (14-59) U/L Alkaline Phosphatase 69 (46-116) U/L C-Reactive Protein 1.5 H* (<1.0) mg/dL Total Protein 7.5 (6.4-8.2) g/dl Albumin 3.4 (3.4-5.0) g/dl Globulin 4.1 gm/dL Albumin/Globulin Ratio 0.8 L (1-2) Lipase 112 (73-393) U/L HCG, Quant 64710.0 mIU/mL Urine Color (Yellow) Urine Appearance (Clear) Urine pH (5.0-8.0) Ur Specific [place] (1.005-1.030) Urine Protein (Negative) Urine Glucose (UA) (Negative) Urine Ketones (Negative) Urine Occult Blood (Negative) Urine Nitrite (Negative) Urine Bilirubin (Negative) Urine Urobilinogen (0.2-1.0) Ur Leukocyte Esterase (Negative) Urine RBC (0-5) /hpf Urine WBC (0-5) /hpf Ur Epithelial Cells (0-5) /hpf Urine Bacteria (FEW) /hpf Urine Mucus (FEW) /hpf Urine HCG, Qual (NEGATIVE) Meds: Medications Generic Name Dose Route Start Last Admin Trade Name Fresteffanie PRN Reason Stop Dose Admin Sodium Chloride 10 ml 09/19/17 18:14 09/19/17 18:44 Saline Flush FLUSH 10 ml ASDIRECTED PRN Administration Keep Vein Open Discontinued Medications Generic Name Dose Route Start Last Admin Trade Name Freq PRN Reason Stop Dose Admin Hydromorphone HCl 0.5 mg 09/19/17 18:14 09/19/17 18:42 Dilaudid IVPUSH 09/19/17 18:15 0.5 mg ONETIME ONE Administration Sodium Chloride 1,000 mls @ 999 mls/hr 09/19/17 18:14 09/19/17 18:40 Normal Saline IV 09/19/17 19:14 999 mls/hr ONETIME ONE Administration Ondansetron HCl 4 mg 09/19/17 18:14 09/19/17 18:40 Zofran IVPUSH 09/19/17 18:15 4 mg ONETIME ONE Administration - Re-Assessments/Exams Free Text/Narrative Re-Assessment/Exam: IV established with normal saline 999 MLS per hour, Dilaudid 0.5 mg IVP, and Zofran 4 mg IVP. Initial labs and studies include CBC, chem 14, hCG, lipase, UA, CRP, and two- view of the abdomen. Once the x-ray of the abdomen is obtained most likely was start the oral contrast for CT of the abdomen. Was reported back patient is . X-ray the abdomen has been canceled. She has had a tubal ligation. She has a history of ectopic 2 unknown fallopian tube. Ordered hCG quantitative and also OB transvaginal ultrasound. 09/19/17 20:36 ultrasound OB transvaginal impression: Single intrauterine gestation. States as noted above. Small corpus luteum cyst with left ovary which is incidental and measuring 2.2 cm. No complicating process by ultrasound exam. Departure - Departure Time of Disposition: 20:49 Disposition: Home, Self-Care 01 Condition: Good Clinical Impression: Qualifiers: Weeks of gestation: less than 8 weeks Qualified Code(s): Z3A.01 - Less than 8 weeks gestation of Abdominal pain Qualifiers: Abdominal location: generalized Qualified Code(s): R10.84 - Generalized abdominal pain - Discharge Information Instructions: Abdominal Pain, Adult, [id number], First Trimester of , [id number] Referrals: Penny Dunlap, [facility] [Primary Care Provider] - Forms: ED Department Discharge Additional Instructions: You are 7 wks 1 day . Please followup with OBGYN specialists of your choice. Start taking vitamins. Stop smoking. Refrain from alcohol use. Take tylenol 650 mg every 6 hrs for pain. Return to the E.D. if you develop any new or worsening symptoms. - My Orders Last 24 Hours: My Active Orders 09/19/17 18:14 Peripheral IV Care [RC] . DIRECTED Sodium Chloride 0.9% [Saline Flush] 10 ml FLUSH ASDIRECTED PRN Peripheral IV Insertion Adult [OM.PC] Routine 09/19/17 18:18 CULTURE URINE [RM] Stat HCG QUALITATIVE,URINE [URCHEM] Stat 09/19/17 20:42 Chest PE [Ang Chest] [CT] Stat - Assessment/Plan Last 24 Hours: My Active Orders 09/19/17 18:14 Peripheral IV Care [RC] . DIRECTED Sodium Chloride 0.9% [Saline Flush] 10 ml FLUSH ASDIRECTED PRN Peripheral IV Insertion Adult [OM.PC] Routine 09/19/17 18:18 CULTURE URINE [RM] Stat HCG QUALITATIVE,URINE [URCHEM] Stat 09/19/17 20:42 Chest PE [Ang Chest] [CT] Stat - My Orders Last 24 Hours: My Active Orders 09/19/17 18:14 Peripheral IV Care [RC] . DIRECTED Peripheral IV Insertion Adult [OM.PC] Routine 09/19/17 18:18 CULTURE URINE [RM] Stat HCG QUALITATIVE,URINE [URCHEM] Stat - Assessment/Plan Last 24 Hours: My Active Orders 09/19/17 18:14 Peripheral IV Care [RC] . DIRECTED Peripheral IV Insertion Adult [OM.PC] Routine 09/19/17 18:18 CULTURE URINE [RM] Stat HCG QUALITATIVE,URINE [URCHEM] Stat
--- NOTE | 2017-09-19 20:32 | US ---
First trimester obstetrical ultrasound: Multiple real-time images were obtained transvaginally. Comparison: No prior obstetrical ultrasound is available. Dates: LMP: ? Current ultrasound: [facility] 05/07/18, gestational age 7 weeks 1 day Single intrauterine gestation is seen. Amniotic fluid volume is normal. Small embryo is identified. No subchorionic hemorrhage is seen. Maternal ovaries are seen. Small corpus luteum cyst noted within the left ovary measuring 2.2 cm which is incidental. The right ovary appears unremarkable. Measurements: Gestational sac: 2.29 cm - 7 weeks 2 days White-rump length: 1.01 cm - 7 weeks 1 day Heart rate: 140 BPM Impression: 1. Single intrauterine gestation. Dates as noted above. 2. Small corpus luteum cyst within the left ovary which is incidental and measures 2.2 cm. 3. No complicating process is seen by ultrasound exam. Diagnostic code #1
== END 2017-09-19 21:08 | disposition home or self-care (01) ==
LOC: JD.ED 17:02
DX: R10.84 Generalized abdominal pain (principal); Z33.1 Pregnant state, incidental; F17.210 Nicotine dependence, cigarettes, uncomplicated; Z88.8 Allergy status to other drugs, medicaments and biological substances; Z87.01 Personal history of pneumonia (recurrent); Z87.59 Personal history of other complications of pregnancy, childbirth and the puerperium
CPT/HCPCS: 36415; 76817; 80053; 81001; 81025; 83690; 84702; 85025; 86140; 87086; 96361; 96374; 96375; 99284; J1170; J2405; J7040; J7050; 87088

== ENCOUNTER 2017-09-29 18:16 | Emergency (ER) | payer SELFPAY ==
[2017-09-29 18:30] VITALS: BP 122/90
[2017-09-29] MEDS ORDERED: Sodium Chloride 0.9% 10 ML Syringe FLUSH PRN (18:54)
[2017-09-29] MEDS ORDERED: Sodium Chloride 0.9% 1,000 ML IV ONE (18:54)
[2017-09-29] MEDS ORDERED: Ondansetron 4 MG/2 ML SDV IVPUSH ONE (18:56)
--- NOTE | 2017-09-29 19:07 | EDM.PDOC ---
<India Conway - Last Filed: 09/29/17 19:10> ED HPI GENERAL MEDICAL PROBLEM - General Chief Complaint: [employer] Problem Stated Complaint: POSS 9WKS PG NAUSEA Time Seen by Provider: 09/29/17 18:46 Source of Information: Reports: Patient History Limitations: Reports: No Limitations - History of Present Illness INITIAL COMMENTS - FREE TEXT/NARRATIVE: Patient is a 37 YO female who presents today with nausea and vomiting. She states this started on Tuesday and she hasn't been able to keep fluids down. She is approximately 9 weeks . She states during her previous pregnancies she had severe nausea and vomiting that started around 8 weeks gestation. During her most recent , she required hospitalization due to vomiting and inability to eat or drink. She was placed on IV nutrition and bed rest. She has not yet established with an OB but she has an appointment in [place], [place] with her OB on the . She is flying back on Tuesday the and will reside there for the remainder of her . She denies abdominal pain , chest pain, cough, fever, chills, or diarrhea. She states that this feels like the nausea she has experienced with prior pregnancies. Of note, at patient's last visit to the ER urine culture was obtained and resulted positive for Beta Streptococcus Group B, with 200 CFU/ml. Patient never underwent treatment for this. Treatment will be initiated today. Abdomen Pain Score (Numeric/FACES): 1 - Related Data Allergies Allergy/AdvReac Type Severity Reaction Status Date / Time promethazine HCl AdvReac Mild Anxiety Verified 09/19/17 17:11 [From Phenergan] metoclopramide HCl AdvReac Anxiety Verified 09/19/17 17:11 [From Reglan] Home Meds: Home Meds Cyanocobalamin (Vitamin B12) [Vitamin B12] 1,000 mcg IM ASDIRECTED 09/19/17 [ History] Cephalexin [Keflex] 500 mg PO Q6H #20 cap 09/29/17 [Rx] Doxylamine/Pyridoxine HCl [Gina Guerrero 10-10 mg Tablet] 1 each PO TID PRN #30 tablet. 09/29/17 [Rx] Past Medical History HEENT History: Reports: Impaired Vision Respiratory History: Reports: Pneumonia, Recurrent Other Gastrointestinal History: pernicious anemia [employer] History: Reports: Other Musculoskeletal History: "Thoracic 8 is ruptured" Neurological History: Reports: Headaches, Chronic Psychiatric History: Reports: Anxiety, Depression, Other (See Below) Other Psychiatric History: pt states that she asked the MD for ashley as her anxiey causes her to have mood swings really bad. Hematologic History: Reports: Other (See Below) Other Hematologic History: pernicoius anemia Oncologic (Cancer) History: Reports: None - Infectious Disease History Infectious Disease History: Reports: None Social & Family History - Family History Family Medical History: Noncontributory - Tobacco Use Smoking Status *Q: Current Every Day Smoker Years of Tobacco use: 16 Packs/Tins Daily: 0.1 Used Tobacco, but Quit: No Second Hand Smoke Exposure: Yes - Caffeine Use Caffeine Use: Reports: Soda - Alcohol Use Days Per Week of Alcohol Use: 0 - Recreational Drug Use Recreational Drug Use: No Recreational Drug Type: Reports: Fentanyl, Morphine ED ROS GENERAL - Review of Systems Review Of Systems: See Below Constitutional: Reports: No Symptoms HEENT: Reports: No Symptoms Respiratory: Reports: No Symptoms Cardiovascular: Reports: No Symptoms GI/Abdominal: Reports: Decreased Appetite, Nausea, Vomiting, Other (some very mild abdominal cramping). Denies: Abdominal Pain, Bloody Stool, Constipation, Diarrhea, Hematemesis : Reports: No Symptoms Musculoskeletal: Reports: No Symptoms Skin: Reports: No Symptoms Neurological: Reports: No Symptoms Psychiatric: Reports: No Symptoms ED EXAM, GI/ABD - Physical Exam Exam: See Below Exam Limited By: No Limitations General Appearance: Alert, WD/WN, No Apparent Distress Eyes: Bilateral: EOMI Throat/Mouth: Normal Gums, Other (dry oral mucosa) Respiratory/Chest: No Respiratory Distress, Lungs Clear, Normal Breath Sounds Cardiovascular: Regular Rate, Rhythm, No Murmur GI/Abdominal Exam: Normal Bowel Sounds, Soft, Non-Tender, No Distention, No Mass Neurological: Alert, Oriented, CN II-XII Intact, Normal Cognition, No Motor/ Sensory Deficits Psychiatric: Normal Affect, Normal Mood Skin Exam: Warm, Dry, Intact, Normal Color, No Rash Course - Vital Signs Last Recorded V/S: Last Vital Signs Temp 98.3 F 09/29/17 18:29 Pulse 75 09/29/17 18:29 Resp 20 09/29/17 18:29 BP 122/90 09/29/17 18:29 Pulse Ox 100 09/29/17 18:29 - Orders/Labs/Meds Orders: Active Orders 24 hr Category Date Time Status Peripheral IV Care [RC] . DIRECTED Care 09/29/17 18:54 Active Sodium Chloride 0.9% [Saline Flush] Med 09/29/17 18:54 Active 10 ml FLUSH ASDIRECTED PRN Peripheral IV Insertion Adult [OM.PC] Stat Oth 09/29/17 18:53 Ordered Medication Orders Sodium Chloride (Saline Flush) 10 ml FLUSH ASDIRECTED PRN PRN Reason: Keep Vein Open Last Admin: 09/29/17 19:11 Dose: 10 ml Labs: Laboratory Tests 09/29/17 09/29/17 09/29/17 Range/Units 19:10 19:10 19:10 WBC 10.66 H (3.98-10.04) K/mm3 RBC 4.26 (3.98-5.22) M/mm3 Hgb 13.3 (11.2-15.7) gm/L Hct 40.7 (34.1-44.9) % MCV 95.5 H (79.4-94.8) fl MCH 31.2 (25.6-32.2) pg MCHC 32.7 (32.2-35.5) g/dl RDW Std Deviation 44.5 (36.4-46.3) fL Plt Count 239 (182-369) K/mm3 MPV 11.5 (9.4-12.3) fl Neut % (Auto) 64.3 (34.0-71.1) % Lymph % (Auto) 26.5 (19.3-51.7) % [place] % (Auto) 7.5 (4.7-12.5) % Eos % (Auto) 1.4 (0.7-5.8) Baso % (Auto) 0.1 (0.1-1.2) % Neut # (Auto) 6.85 H (1.56-6.13) K/mm3 Lymph # (Auto) 2.83 (1.18-3.74) K/mm3 [place] # (Auto) 0.80 H (0.24-0.36) K/mm3 Eos # (Auto) 0.15 (0.04-0.36) K/mm3 Baso # (Auto) 0.01 (0.01-0.08) K/mm3 Sodium 134 L (136-145) mEq/L Potassium 3.7 (3.5-5.1) mEq/L Chloride 104 (98-107) mEq/L Carbon Dioxide 25 (21-32) mEq/L Anion Gap 8.7 (5-15) BUN 8 (7-18) mg/dL Creatinine 0.8 (0.55-1.02) mg/dL Est Cr Clr Drug Dosing 94.54 mL/min Estimated GFR (MDRD) > 60 (>60) mL/min BUN/Creatinine Ratio 10.0 L (14-18) Glucose 93 (74-106) mg/dL Calcium 8.8 (8.5-10.1) mg/dL Total Bilirubin 0.4 (0.2-1.0) mg/dL AST 21 (15-37) U/L ALT 36 (14-59) U/L Alkaline Phosphatase 61 (46-116) U/L Total Protein 7.4 (6.4-8.2) g/dl Albumin 3.2 L (3.4-5.0) g/dl Globulin 4.2 gm/dL Albumin/Globulin Ratio 0.8 L (1-2) HCG, Quant 692711.0 mIU/mL Meds: Medications Generic Name Dose Route Start Last Admin Trade Name Freq PRN Reason Stop Dose Admin Sodium Chloride 10 ml 09/29/17 18:54 09/29/17 19:11 Saline Flush FLUSH 10 ml ASDIRECTED PRN Administration Keep Vein Open Discontinued Medications Generic Name Dose Route Start Last Admin Trade Name Olga PRN Reason Stop Dose Admin Cephalexin 500 mg 09/29/17 20:45 Keflex PO 09/29/17 20:46 ONETIME ONE Sodium Chloride 1,000 mls @ 999 mls/hr 09/29/17 18:54 09/29/17 19:11 Normal Saline IV 09/29/17 19:54 999 mls/hr ONETIME ONE Administration Ondansetron HCl 4 mg 09/29/17 18:56 09/29/17 19:11 Zofran IVPUSH 09/29/17 18:57 4 mg ONETIME ONE Administration Departure - Departure Disposition: Home, Self-Care 01 Clinical Impression: Hyperemesis arising during , Group B streptococcal infection during , First trimester Qualifiers: Weeks of gestation: less than 8 weeks Qualified Code(s): Z3A.01 - Less than 8 weeks gestation of - Discharge Information Prescriptions: Cephalexin [Keflex] 500 mg PO Q6H #20 cap Doxylamine/Pyridoxine HCl [Diclegis Dr 10-10 mg Tablet] 1 each PO TID PRN #30 tablet.dr GREEN Reason: Nausea/Vomiting Instructions: First Trimester of , [id number], Hyperemesis Gravidarum, and Urinary Tract Infection Referrals: Penny Dunlap, DIRECTOR OF MANUFACTURING [Primary Care Provider] - Forms: ED Department Discharge Additional Instructions: Take Keflex one tablet every 6 hours for 5 days. Follow-up with [employer]PER[employer]ENT [employer] at completion of therapy to ensure UTI has resolved. Urine culture is required. In addition will have you take diclegis 1 tab every 8 hrs for n/v. Push the fluids : gatorade, powerade, and water. Utilize tylenol as needed for pain. Return to the E.D. for any new or worsening symptoms. <Yonis Harper O - Last Filed: 09/29/17 20:52> ED ROS GENERAL - Review of Systems Review Of Systems: See Below ED EXAM, GI/ABD - Physical Exam Exam: See Below Course - Re-Assessments/Exams Free Text/Narrative Re-Assessment/Exam: I have personally examined the patient. Agree with findings by India Conway. Agree with labs and therapies. Labs reviewed: White blood cell count 10.66, hemoglobin 13.3, platelet count 239 , Sodium 134, potassium 3.7, chloride 104, creatinine 0.8, AG 8.7, BUN 8, glucose 93, hCG quantitative is 225771.0 Urine culture verified September 22, 2017 indicated beta streptococcus group B, colony count 200 CFU/male. The presence of group B strep in any amount and a culture of a woman indicates the need for intrapartum antibiotic prophylaxis because it is associated with increased risk for group B strep disease. Also isolated mixed faustino suggestive of contamination. IV fluids have been completed. Nausea has subsided. [address] 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 Suggested keflex 500mg QID for 5 days. F/U with [employer]ODUCTION SUPER[employer]ENT HYDRO at next [employer]PER[employer]ENDENT [employer] appt for urine culture. Departure - Departure Time of Disposition: 20:45 Condition: Good
[2017-09-29] MEDS ORDERED: Cephalexin 500 MG Cap PO ONE (20:45)
== END 2017-09-29 21:04 | disposition home or self-care (01) ==
LOC: JD.ED 18:16
DX: O98.811 Other maternal infectious and parasitic diseases complicating pregnancy, first trimester (principal); B95.1 Streptococcus, group B, as the cause of diseases classified elsewhere; O99.89 Other specified diseases and conditions complicating pregnancy, childbirth and the puerperium; R11.10 Vomiting, unspecified; O99.331 Smoking (tobacco) complicating pregnancy, first trimester; F17.210 Nicotine dependence, cigarettes, uncomplicated; Z88.8 Allergy status to other drugs, medicaments and biological substances; Z3A.01 Less than 8 weeks gestation of pregnancy
CPT/HCPCS: 36415; 80053; 84702; 85025; 96361; 96374; 99284; A9270; J2405; J7040; J7050

== ENCOUNTER 2017-09-30 18:04 | Emergency (ER) | payer SELFPAY ==
[2017-09-30 18:13] VITALS: BP 115/73
--- NOTE | 2017-09-30 19:07 | EDM.PDOC ---
ED HPI GENERAL MEDICAL PROBLEM - General Chief Complaint: [employer] Problem Stated Complaint: 9 WEEKS PREG VOMITING NOT BETTER Time Seen by Provider: 09/30/17 18:50 Source of Information: Reports: Patient History Limitations: Reports: No Limitations - History of Present Illness INITIAL COMMENTS - FREE TEXT/NARRATIVE: Ondina is a 37yo , approximately 9 wks gestation returns to ED ambulatory today with persistent n/v in . She was seen yesterday in ED, rec'd 1L/NS and zofran, given diclegis RX which she states she "puked up last night". She is not keeping any food or fluids down as she is vomiting at least 2-4 times per hour. She has had hx of hyperemesis with all of her pregnancies, requiring hospitalizations multiple times during her pregnancies. She has an appt with Dr. Laly Womack on Tuesday morning to establish care with local OB services. Throat Pain Score (Numeric/FACES): 4 - Related Data Allergies Allergy/AdvReac Type Severity Reaction Status Date / Time promethazine HCl AdvReac Mild Anxiety Verified 09/30/17 18:13 [From Phenergan] metoclopramide HCl AdvReac Anxiety Verified 09/30/17 18:13 [From Reglan] Home Meds: Home Meds Cyanocobalamin (Vitamin B12) [Vitamin B12] 1,000 mcg IM ASDIRECTED 09/19/17 [ History] Past Medical History HEENT History: Reports: Impaired Vision Respiratory History: Reports: Pneumonia, Recurrent Other Gastrointestinal History: pernicious anemia [employer] History: Reports: Other Musculoskeletal History: "Thoracic 8 is ruptured" Neurological History: Reports: Headaches, Chronic Psychiatric History: Reports: Anxiety, Depression, Other (See Below) Other Psychiatric History: pt states that she asked the MD for buspar as her anxiey causes her to have mood swings really bad. Hematologic History: Reports: Other (See Below) Other Hematologic History: pernicoius anemia Oncologic (Cancer) History: Reports: None - Infectious Disease History Infectious Disease History: Reports: None - Past Surgical History Female Surgical History: Reports: Tubal Ligation Social & Family History - Family History Family Medical History: Noncontributory - Tobacco Use Smoking Status *Q: Current Every Day Smoker Years of Tobacco use: 16 Packs/Tins Daily: 0.1 Used Tobacco, but Quit: No Second Hand Smoke Exposure: Yes - Caffeine Use Caffeine Use: Reports: Soda - Alcohol Use Days Per Week of Alcohol Use: 0 - Recreational Drug Use Recreational Drug Use: No Drug Use in Last 12 Months: No Recreational Drug Type: Reports: Fentanyl, Morphine ED ROS GENERAL - Review of Systems Review Of Systems: See Below Constitutional: Reports: Malaise, Weakness, Fatigue, Decreased Appetite HEENT: Reports: No Symptoms Respiratory: Reports: No Symptoms. Denies: Shortness of Breath, Cough Cardiovascular: Reports: No Symptoms. Denies: Chest Pain, Dyspnea on Exertion GI/Abdominal: Reports: Diarrhea (x 2 or 3 this morning), Nausea, Vomiting. Denies: Abdominal Pain, Constipation, Hematemesis, Hematochezia, Melena : Reports: No Symptoms Neurological: Reports: No Symptoms Hematologic/Lymphatic: Reports: Anemia (reports hx of pernicious anemia) ED EXAM - Physical Exam Exam: See Below Exam Limited By: No Limitations General Appearance: Alert, WD/WN, No Apparent Distress, Other (patient is wrapped in blankets lying in position on stretcher but is very talkative. ) Eye Exam: Bilateral Eye: EOMI, PERRL Ears: Normal External Exam, Hearing Grossly Normal Nose: Normal Inspection Throat/Mouth: Normal Inspection, Normal Voice, No Airway Compromise. No: Normal Teeth (missing teeth and with poor dentition) Head: Atraumatic, Normocephalic Neck: Normal Inspection Respiratory/Chest: No Respiratory Distress, Lungs Clear, Normal Breath Sounds Cardiovascular: Regular Rate, Rhythm, No Edema, No Murmur GI/Abdominal Exam: Normal Bowel Sounds, Soft Rectal Exam: Deferred (Female) Exam: Other (deferred) Extremities: Normal Inspection, No Pedal Edema Neurological: Alert, Oriented, CN II-XII Intact Psychiatric: Normal Affect, Normal Mood Skin Exam: Warm, Dry, Intact Course - Vital Signs Last Recorded V/S: Last Vital Signs Temp 97 F 09/30/17 18:11 Pulse 62 09/30/17 18:11 Resp 18 09/30/17 18:11 BP 115/73 09/30/17 18:11 Pulse Ox 100 09/30/17 18:11 - Orders/Labs/Meds Orders: Active Orders 24 hr Category Date Time Status Sodium Chloride 0.9% [Normal Saline] 1,000 ml Med 09/30/17 21:12 Active IV ONETIME Medication Orders Sodium Chloride (Normal Saline) 1,000 mls @ 500 mls/hr IV ONETIME ONE Stop: 09/30/17 23:11 Last Admin: 09/30/17 21:18 Dose: 500 mls/hr labs reviewed from yesterdays ED visit and are essentially unremarkable. Will not repeat labs today. Meds: Medications Generic Name Dose Route Start Last Admin Trade Name Freq PRN Reason Stop Dose Admin Sodium Chloride 1,000 mls @ 500 mls/hr 09/30/17 21:12 09/30/17 21:18 Normal Saline IV 09/30/17 23:11 500 mls/hr ONETIME ONE Administration Discontinued Medications Generic Name Dose Route Start Last Admin Trade Name Freq PRN Reason Stop Dose Admin Acetaminophen 650 mg 09/30/17 20:34 09/30/17 20:40 Tylenol PO 09/30/17 20:35 650 mg NOW ONE Administration Sodium Chloride 1,000 mls @ 999 mls/hr 09/30/17 19:17 09/30/17 19:32 Normal Saline IV 09/30/17 20:17 999 mls/hr ONETIME ONE Administration Ondansetron HCl 4 mg 09/30/17 19:17 09/30/17 19:32 Zofran IVPUSH 09/30/17 19:18 4 mg ONETIME ONE Administration - Re-Assessments/Exams Free Text/Narrative Re-Assessment/Exam: 09/30/17 21:53 1L of IVF infused, 4mg zofran IV, feeling better and is hungry now. Will try to eat sandwich. 1 more liter of IVF to be infused then patient to be discharged. Will rx zofran ODT to use at home. Departure - Departure Time of Disposition: 21:54 Disposition: Home, Self-Care 01 Condition: Good Clinical Impression: Hyperemesis arising during - Discharge Information Instructions: Hyperemesis Gravidarum Referrals: Penny Dunlap, OUTSOLE HANDLER [Primary Care Provider] - Forms: ED Department Discharge Additional Instructions: Zofran oral tablets, every 6 hours if needed for nausea. Push fluids Follow up with [employer], Dr. Womack as scheduled Tuesday morning Return to ER if needed for return of intractable nausea/vomiting or other concerns. - My Orders Last 24 Hours: My Active Orders 09/30/17 21:12 Sodium Chloride 0.9% [Normal Saline] 1,000 ml IV ONETIME - Assessment/Plan Last 24 Hours: My Active Orders 09/30/17 21:12 Sodium Chloride 0.9% [Normal Saline] 1,000 ml IV ONETIME
[2017-09-30] MEDS ORDERED: Sodium Chloride 0.9% 1,000 ML IV ONE ×2 (19:17→21:12)
[2017-09-30] MEDS ORDERED: Ondansetron 4 MG/2 ML SDV IVPUSH ONE (19:17)
[2017-09-30] MEDS ORDERED: Acetaminophen 325 MG Tab PO ONE (20:34)
== END 2017-09-30 22:21 | disposition home or self-care (01) ==
LOC: JD.ED 18:04
DX: O21.0 Mild hyperemesis gravidarum (principal); O99.331 Smoking (tobacco) complicating pregnancy, first trimester; F17.210 Nicotine dependence, cigarettes, uncomplicated; Z88.8 Allergy status to other drugs, medicaments and biological substances; Z3A.09 9 weeks gestation of pregnancy
CPT/HCPCS: 96361; 96374; 99284; A9270; J2405; J7040

== ENCOUNTER 2017-10-09 16:01 | Emergency (ER) | payer SELFPAY ==
[2017-10-09 16:14] VITALS: BP 118/71
[2017-10-09] MEDS ORDERED: Lactated Ringers 1,000 ML IV ONE ×2 (17:08→18:41)
[2017-10-09] MEDS ORDERED: Acetaminophen 325 MG Tab PO ONE (17:08)
[2017-10-09] MEDS ORDERED: Ondansetron 4 MG/2 ML SDV IVPUSH ONE (17:08)
[2017-10-09] MEDS ORDERED: Sodium Chloride 0.9% 10 ML Syringe FLUSH PRN (17:08)
--- NOTE | 2017-10-09 19:38 | EDM.PDOC ---
ED HPI GENERAL MEDICAL PROBLEM - General Chief Complaint: PLATINUMSMITH Problem Stated Complaint: VOMITING/NEWLY PG Time Seen by Provider: 10/09/17 17:07 Source of Information: Reports: Patient History Limitations: Reports: No Limitations - History of Present Illness INITIAL COMMENTS - FREE TEXT/NARRATIVE: 37-year-old female presents for evaluation and treatment of nausea, vomiting due to . Patient reports she is presently 10 weeks . She has had difficulty with this and has been to the ER on several occasions for nausea and vomiting. She states she did take some Zofran prior to arrival in the ER but this did not help and she actually vomited this up. She was previously prescribed likely just but is unable to take this as well. She is allergies to Phenergan and Reglan. Patient reports that she cannot keep anything down. She also is complaining of headache. She denies any vaginal bleeding, abdominal pain or cramping. 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 Lower Abdomen Pain Score (Numeric/FACES): 2 - Related Data Allergies Allergy/AdvReac Type Severity Reaction Status Date / Time promethazine HCl AdvReac Mild Anxiety Verified 09/30/17 18:13 [From Phenergan] metoclopramide HCl AdvReac Anxiety Verified 09/30/17 18:13 [From Reglan] Home Meds: Home Meds Cyanocobalamin (Vitamin B12) [Vitamin B12] 1,000 mcg IM ASDIRECTED 09/19/17 [ History] Past Medical History HEENT History: Reports: Impaired Vision Respiratory History: Reports: Pneumonia, Recurrent Other Gastrointestinal History: pernicious anemia PLATINUMSMITH History: Reports: Other Musculoskeletal History: "Thoracic 8 is ruptured" Neurological History: Reports: Headaches, Chronic Psychiatric History: Reports: Anxiety, Depression, Other (See Below) Other Psychiatric History: pt states that she asked the MD for buspar as her anxiey causes her to have mood swings really bad. Hematologic History: Reports: Other (See Below) Other Hematologic History: pernicoius anemia Oncologic (Cancer) History: Reports: None - Infectious Disease History Infectious Disease History: Reports: None - Past Surgical History Female Surgical History: Reports: Tubal Ligation Social & Family History - Family History Family Medical History: Noncontributory - Tobacco Use Smoking Status *Q: Current Every Day Smoker Years of Tobacco use: 19 Packs/Tins Daily: 1 - Caffeine Use Caffeine Use: Reports: Soda ED ROS GENERAL - Review of Systems Review Of Systems: See Below Constitutional: Denies: Fever, Chills GI/Abdominal: Reports: Nausea, Vomiting. Denies: Abdominal Pain : Reports: Other (Denies a vaginal bleeding). Denies: Dysuria Musculoskeletal: Reports: Back Pain (Chronic) Neurological: Reports: Headache ED EXAM - Physical Exam Exam: See Below Exam Limited By: No Limitations General Appearance: Alert, WD/WN, Mild Distress, Obese Throat/Mouth: Normal Inspection, Normal Lips, Normal Teeth, Normal Gums Neck: Normal Inspection Respiratory/Chest: No Respiratory Distress, Lungs Clear, Normal Breath Sounds Cardiovascular: Normal Peripheral Pulses, Regular Rate, Rhythm, No Murmur GI/Abdominal Exam: Normal Bowel Sounds, Soft, Non-Tender Heart Tones: Not [place] Neurological: Alert, Oriented, Normal Cognition Psychiatric: Normal Affect, Normal Mood Skin Exam: Warm, Dry, Normal Color Course - Vital Signs Last Recorded V/S: Last Vital Signs Temp 36.7 C 10/09/17 16:12 Pulse 76 10/09/17 16:12 Resp 20 10/09/17 16:12 BP 118/71 10/09/17 16:12 Pulse Ox 100 10/09/17 16:12 - Orders/Labs/Meds Orders: Active Orders 24 hr Category Date Time Status Peripheral IV Care [RC] . DIRECTED Care 10/09/17 17:09 Active CULTURE URINE [RM] Stat Lab 10/09/17 18:30 Ordered UA W/MICROSCOPIC [URIN] Stat Lab 10/09/17 18:30 Ordered Peripheral IV Insertion Adult [OM.PC] Routine Oth 10/09/17 17:08 Ordered Labs: Laboratory Tests 10/09/17 10/09/17 10/09/17 Range/Units 17:36 17:36 17:36 WBC 9.11 (3.98-10.04) K/mm3 RBC 4.22 (3.98-5.22) M/mm3 Hgb 13.1 (11.2-15.7) gm/L Hct 39.9 (34.1-44.9) % MCV 94.5 (79.4-94.8) fl MCH 31.0 (25.6-32.2) pg MCHC 32.8 (32.2-35.5) g/dl RDW Std Deviation 43.5 (36.4-46.3) fL Plt Count 236 (182-369) K/mm3 MPV 11.2 (9.4-12.3) fl Neut % (Auto) 69.8 (34.0-71.1) % Lymph % (Auto) 22.8 (19.3-51.7) % [place] % (Auto) 6.8 (4.7-12.5) % Eos % (Auto) 0.3 L (0.7-5.8) Baso % (Auto) 0.2 (0.1-1.2) % Neut # (Auto) 6.35 H (1.56-6.13) K/mm3 Lymph # (Auto) 2.08 (1.18-3.74) K/mm3 [place] # (Auto) 0.62 H (0.24-0.36) K/mm3 Eos # (Auto) 0.03 L (0.04-0.36) K/mm3 Baso # (Auto) 0.02 (0.01-0.08) K/mm3 Sodium 135 L (136-145) mEq/L Potassium 3.6 (3.5-5.1) mEq/L Chloride 104 (98-107) mEq/L Carbon Dioxide 23 (21-32) mEq/L Anion Gap 11.6 (5-15) BUN 7 (7-18) mg/dL Creatinine 0.8 (0.55-1.02) mg/dL Est Cr Clr Drug Dosing 91.01 mL/min Estimated GFR (MDRD) > 60 (>60) mL/min BUN/Creatinine Ratio 8.8 L (14-18) Glucose 90 (74-106) mg/dL Calcium 8.6 (8.5-10.1) mg/dL Total Bilirubin 0.9 (0.2-1.0) mg/dL AST 25 (15-37) U/L ALT 35 (14-59) U/L Alkaline Phosphatase 49 (46-116) U/L Total Protein 7.3 (6.4-8.2) g/dl Albumin 3.1 L (3.4-5.0) g/dl Globulin 4.2 gm/dL Albumin/Globulin Ratio 0.7 L (1-2) HCG, Qual Positive H (NEGATIVE) Urine Color (Yellow) Urine Appearance (Clear) Urine pH (5.0-8.0) Ur Specific [place] (1.005-1.030) Urine Protein (Negative) Urine Glucose (UA) (Negative) Urine Ketones (Negative) Urine Occult Blood (Negative) Urine Nitrite (Negative) Urine Bilirubin (Negative) Urine Urobilinogen (0.2-1.0) Ur Leukocyte Esterase (Negative) Urine RBC (0-5) /hpf Urine WBC (0-5) /hpf Ur Epithelial Cells (0-5) /hpf Urine Bacteria (FEW) /hpf Urine Mucus (FEW) /hpf 10/09/17 Range/Units 18:30 WBC (3.98-10.04) K/mm3 RBC (3.98-5.22) M/mm3 Hgb (11.2-15.7) gm/L Hct (34.1-44.9) % MCV (79.4-94.8) fl MCH (25.6-32.2) pg MCHC (32.2-35.5) g/dl RDW Std Deviation (36.4-46.3) fL Plt Count (182-369) K/mm3 MPV (9.4-12.3) fl Neut % (Auto) (34.0-71.1) % Lymph % (Auto) (19.3-51.7) % [place] % (Auto) (4.7-12.5) % Eos % (Auto) (0.7-5.8) Baso % (Auto) (0.1-1.2) % Neut # (Auto) (1.56-6.13) K/mm3 Lymph # (Auto) (1.18-3.74) K/mm3 [place] # (Auto) (0.24-0.36) K/mm3 Eos # (Auto) (0.04-0.36) K/mm3 Baso # (Auto) (0.01-0.08) K/mm3 Sodium (136-145) mEq/L Potassium (3.5-5.1) mEq/L Chloride (98-107) mEq/L Carbon Dioxide (21-32) mEq/L Anion Gap (5-15) BUN (7-18) mg/dL Creatinine (0.55-1.02) mg/dL Est Cr Clr Drug Dosing mL/min Estimated GFR (MDRD) (>60) mL/min BUN/Creatinine Ratio (14-18) Glucose (74-106) mg/dL Calcium (8.5-10.1) mg/dL Total Bilirubin (0.2-1.0) mg/dL AST (15-37) U/L ALT (14-59) U/L Alkaline Phosphatase (46-116) U/L Total Protein (6.4-8.2) g/dl Albumin (3.4-5.0) g/dl Globulin gm/dL Albumin/Globulin Ratio (1-2) HCG, Qual (NEGATIVE) Urine Color Yellow (Yellow) Urine Appearance Clear (Clear) Urine pH 6.5 (5.0-8.0) Ur Specific [place] 1.025 (1.005-1.030) Urine Protein Trace H (Negative) Urine Glucose (UA) Negative (Negative) Urine Ketones 3+ H (Negative) Urine Occult Blood Negative (Negative) Urine Nitrite Negative (Negative) Urine Bilirubin Negative (Negative) Urine Urobilinogen 1.0 (0.2-1.0) Ur Leukocyte Esterase 1+ H (Negative) Urine RBC 0-5 (0-5) /hpf Urine WBC 10-20 H (0-5) /hpf Ur Epithelial Cells 10-20 H (0-5) /hpf Urine Bacteria Many H (FEW) /hpf Urine Mucus Not seen (FEW) /hpf Meds: Medications Discontinued Medications Generic Name Dose Route Start Last Admin Trade Name Freq PRN Reason Stop Dose Admin Acetaminophen 650 mg 10/09/17 17:08 10/09/17 17:28 Tylenol PO 10/09/17 17:09 650 mg NOW ONE Administration Lactated Ringer's 1,000 mls @ 999 mls/hr 10/09/17 17:08 10/09/17 17:25 Ringers, Lactated IV 10/09/17 18:08 999 mls/hr .BOLUS ONE Administration Lactated Ringer's 1,000 mls @ 999 mls/hr 10/09/17 18:41 10/09/17 18:53 Ringers, Lactated IV 10/09/17 19:41 999 mls/hr .BOLUS ONE Administration Ondansetron HCl 4 mg 10/09/17 17:08 10/09/17 17:30 Zofran IVPUSH 10/09/17 17:09 4 mg ONETIME ONE Administration Sodium Chloride 10 ml 10/09/17 17:08 10/09/17 17:30 Saline Flush FLUSH 10 ml ASDIRECTED PRN Administration Keep Vein Open - Re-Assessments/Exams Free Text/Narrative Re-Assessment/Exam: 10/09/17 20:00 Urine culture has been sent. Patient recently on abx for UTI. Will confirm with culture, hold off on antibiotics at this time. The patient has received 2 L of LR. She has not vomited since coming to the ER. Nausea is improved. Will discharge her home with instructions follow-up with Dr. Womack this week. Patient requested some Norflex for her back discomfort. I advised her that muscle relaxers are not normally indicated and she can discuss this further with Dr. Womack. Discharge as instructions. Departure - Departure Time of Disposition: 20:01 Disposition: Home, Self-Care 01 Condition: Fair Clinical Impression: Hyperemesis arising during - Discharge Information Instructions: Hyperemesis Gravidarum Referrals: Otf Womack MD [Primary Care Provider] - Forms: ED Department Discharge Additional Instructions: Continue with your current medications, Zofran and Diclegis, as needed for nausea. Make sure you're drinking plenty of fluids. [place] diet. follow-up with Dr. Womack this week for recheck of your symptoms and for culture results. Please return to the ER for symptoms change or worsen. - My Orders Last 24 Hours: My Active Orders 10/09/17 17:08 Peripheral IV Insertion Adult [OM.PC] Routine 10/09/17 17:09 Peripheral IV Care [RC] . DIRECTED 10/09/17 18:30 CULTURE URINE [RM] Stat UA W/MICROSCOPIC [URIN] Stat - Assessment/Plan Last 24 Hours: My Active Orders 10/09/17 17:08 Peripheral IV Insertion Adult [OM.PC] Routine 10/09/17 17:09 Peripheral IV Care [RC] . DIRECTED 10/09/17 18:30 CULTURE URINE [RM] Stat UA W/MICROSCOPIC [URIN] Stat
== END 2017-10-09 20:12 | disposition home or self-care (01) ==
LOC: SUPCPDRO 16:01 → JD.ED 16:01
DX: O21.9 Vomiting of pregnancy, unspecified (principal); O99.331 Smoking (tobacco) complicating pregnancy, first trimester; F17.210 Nicotine dependence, cigarettes, uncomplicated; O99.341 Other mental disorders complicating pregnancy, first trimester; F41.9 Anxiety disorder, unspecified; F32.9 Major depressive disorder, single episode, unspecified; Z3A.10 10 weeks gestation of pregnancy; Z88.8 Allergy status to other drugs, medicaments and biological substances; Z79.899 Other long term (current) drug therapy; Z87.01 Personal history of pneumonia (recurrent)
CPT/HCPCS: 36415; 80053; 81001; 84703; 85025; 87077; 87086; 96361; 96374; 99284; A9270; J2405; J7050; J7120

== ENCOUNTER 2017-10-18 19:48 | Emergency (ER) | payer SELFPAY ==
[2017-10-18 20:07] VITALS: BP 130/71
--- NOTE | 2017-10-18 20:23 | EDM.PDOC ---
ED HPI GENERAL MEDICAL PROBLEM - General Chief Complaint: Gastrointestinal Problem Stated Complaint: [place] IN STOMACH Time Seen by Provider: 10/18/17 20:23 - History of Present Illness INITIAL COMMENTS - FREE TEXT/NARRATIVE: 37-year-old female presents emergency room with hyperemesis symptoms. She is 11 weeks , And has frequent problems with hyperemesis. The patient got after having a tubal ligation other than this in the hyperemesis she does not have any palpitations associated with this . Patient denies any fevers or chills but she can't keep anything down. She has not easier medication at home and close follow-up with her hospital director Back Pain Score (Numeric/FACES): 8 - Related Data Allergies Allergy/AdvReac Type Severity Reaction Status Date / Time promethazine HCl AdvReac Mild Anxiety Verified 10/18/17 20:07 [From Phenergan] metoclopramide HCl AdvReac Anxiety Verified 10/18/17 20:07 [From Reglan] Home Meds: Home Meds Cyanocobalamin (Vitamin B12) [Vitamin B12] 1,000 mcg IM ASDIRECTED 09/19/17 [ History] Past Medical History HEENT History: Reports: Impaired Vision Respiratory History: Reports: Pneumonia, Recurrent Other Gastrointestinal History: pernicious anemia [employer] History: Reports: Other Musculoskeletal History: "Thoracic 8 is ruptured" Neurological History: Reports: Headaches, Chronic Psychiatric History: Reports: Anxiety, Depression, Other (See Below) Other Psychiatric History: pt states that she asked the MD for buspar as her anxiey causes her to have mood swings really bad. Hematologic History: Reports: Other (See Below) Other Hematologic History: pernicoius anemia Oncologic (Cancer) History: Reports: None - Infectious Disease History Infectious Disease History: Reports: None - Past Surgical History Female Surgical History: Reports: Tubal Ligation Social & Family History - Family History Family Medical History: Noncontributory - Tobacco Use Smoking Status *Q: Current Every Day Smoker Years of Tobacco use: 16 Packs/Tins Daily: 0.2 Used Tobacco, but Quit: No - Caffeine Use Caffeine Use: Reports: None - Recreational Drug Use Recreational Drug Use: No ED ROS GENERAL - Review of Systems Review Of Systems: See Below Constitutional: Reports: No Symptoms HEENT: Reports: No Symptoms Respiratory: Reports: No Symptoms Cardiovascular: Reports: No Symptoms GI/Abdominal: Reports: Nausea, Vomiting. Denies: Abdominal Pain, Constipation, Diarrhea : Reports: No Symptoms Musculoskeletal: Reports: No Symptoms Skin: Reports: No Symptoms Neurological: Reports: No Symptoms. Denies: Headache ED EXAM, GI/ABD - Physical Exam Exam: See Below Exam Limited By: No Limitations General Appearance: Alert, No Apparent Distress Head: Atraumatic, Normocephalic Neck: Normal Inspection, Supple, Non-Tender, Full Range of Motion. No: Limited Range of Motion, Lymphadenopathy (L), Lymphadenopathy (R) Respiratory/Chest: No Respiratory Distress, Lungs Clear, Normal Breath Sounds Cardiovascular: Regular Rate, Rhythm, No Edema, No Murmur GI/Abdominal Exam: Normal Bowel Sounds, Soft, Non-Tender, No Organomegaly. No: Guarding, Rigid, Rebound, Tender Back Exam: Normal Inspection, Full Range of Motion. No: CVA Tenderness (L), CVA Tenderness (R) Neurological: Alert, Oriented, Normal Cognition Course - Vital Signs Last Recorded V/S: Last Vital Signs Temp 36.3 C 10/18/17 20:02 Pulse 99 10/18/17 20:02 Resp 18 10/18/17 20:02 BP 130/71 10/18/17 20:02 Pulse Ox 97 10/18/17 20:02 - Orders/Labs/Meds Orders: Active Orders 24 hr Category Date Time Status UA W/MICROSCOPIC [URIN] Stat Lab 10/18/17 21:45 Ordered Labs: Laboratory Tests 10/18/17 10/18/17 10/18/17 Range/Units 21:35 21:35 21:45 WBC 8.25 (3.98-10.04) K/mm3 RBC 4.13 (3.98-5.22) M/mm3 Hgb 12.8 (11.2-15.7) gm/L Hct 39.1 (34.1-44.9) % MCV 94.7 (79.4-94.8) fl MCH 31.0 (25.6-32.2) pg MCHC 32.7 (32.2-35.5) g/dl RDW Std Deviation 42.5 (36.4-46.3) fL Plt Count 229 (182-369) K/mm3 MPV 11.2 (9.4-12.3) fl Neutrophils % (Manual) 59 (40-60) % Band Neutrophils % 0 (0-10) % Lymphocytes % (Manual) 40 (20-40) % Atypical Lymphs % 0 % Monocytes % (Manual) 1 L (2-10) % Eosinophils % (Manual) 0 L (0.7-5.8) % Basophils % (Manual) 0 L (0.1-1.2) Platelet Estimate Adequate Plt Morphology Comment Normal RBC Morph Comment Normal Sodium 137 (136-145) mEq/L Potassium 3.3 L (3.5-5.1) mEq/L Chloride 102 (98-107) mEq/L Carbon Dioxide 25 (21-32) mEq/L Anion Gap 13.3 (5-15) BUN 10 (7-18) mg/dL Creatinine 1.0 (0.55-1.02) mg/dL Est Cr Clr Drug Dosing 55.86 mL/min Estimated GFR (MDRD) > 60 (>60) mL/min BUN/Creatinine Ratio 10.0 L (14-18) Glucose 80 (74-106) mg/dL Calcium 8.5 (8.5-10.1) mg/dL Total Bilirubin 0.7 (0.2-1.0) mg/dL AST 25 (15-37) U/L ALT 29 (14-59) U/L Alkaline Phosphatase 49 (46-116) U/L Total Protein 7.2 (6.4-8.2) g/dl Albumin 3.1 L (3.4-5.0) g/dl Globulin 4.1 gm/dL Albumin/Globulin Ratio 0.8 L (1-2) Urine Color Dark yellow (Yellow) Urine Appearance Clear (Clear) Urine pH 5.5 (5.0-8.0) Ur Specific [place] > or = 1.030 (1.005-1.030) Urine Protein 1+ H (Negative) Urine Glucose (UA) Negative (Negative) Urine Ketones Negative (Negative) Urine Occult Blood Negative (Negative) Urine Nitrite Negative (Negative) Urine Bilirubin 1+ H (Negative) Urine Urobilinogen 2.0 H (0.2-1.0) Ur Leukocyte Esterase Negative (Negative) Urine RBC 0-5 (0-5) /hpf Urine WBC 0-5 (0-5) /hpf Ur Epithelial Cells 5-10 H (0-5) /hpf Urine Bacteria Few (FEW) /hpf Urine Mucus Moderate H (FEW) /hpf Meds: Medications Discontinued Medications Generic Name Dose Route Start Last Admin Trade Name Olga PRN Reason Stop Dose Admin Lactated Ringer's 1,000 mls @ 999 mls/hr 10/18/17 20:56 10/18/17 21:24 Ringers, Lactated IV 10/18/17 21:56 999 mls/hr .BOLUS ONE Administration Lactated Ringer's 1,000 mls @ 999 mls/hr 10/19/17 01:12 10/19/17 01:19 Ringers, Lactated IV 10/19/17 02:12 999 mls/hr .BOLUS ONE Administration Ondansetron HCl 4 mg 10/18/17 20:56 10/18/17 21:24 Zofran IVPUSH 10/18/17 20:57 4 mg ONETIME ONE Administration Ondansetron HCl 4 mg 10/19/17 01:12 10/19/17 01:19 Zofran IVPUSH 10/19/17 01:13 4 mg ONETIME ONE Administration - Re-Assessments/Exams Free Text/Narrative Re-Assessment/Exam: 10/19/17 02:19 Patient is doing much better at this time after 2 doses of Zofran and 2 L of fluid. She'll be discharged home Departure - Departure Time of Disposition: 02:19 Disposition: Home, Self-Care 01 Clinical Impression: Hyperemesis gravidarum - Discharge Information Referrals: Otf Womack MD [Primary Care Provider] - Forms: ED Department Discharge Additional Instructions: Return to the emergency room with any questions problems worsening symptoms. Clear liquid diet for the next 24 hours then slowly advance as tolerated. Follow-up with your hospital director in 2-3 days. - My Orders Last 24 Hours: My Active Orders 10/18/17 21:45 UA W/MICROSCOPIC [URIN] Stat - Assessment/Plan Last 24 Hours: My Active Orders 10/18/17 21:45 UA W/MICROSCOPIC [URIN] Stat
[2017-10-18] MEDS ORDERED: Lactated Ringers 1,000 ML IV ONE (20:56)
[2017-10-18] MEDS ORDERED: Ondansetron 4 MG/2 ML SDV IVPUSH ONE (20:56)
[2017-10-19] MEDS ORDERED: Lactated Ringers 1,000 ML IV ONE (01:12)
[2017-10-19] MEDS ORDERED: Ondansetron 4 MG/2 ML SDV IVPUSH ONE (01:12)
== END 2017-10-19 02:32 | disposition home or self-care (01) ==
LOC: JD.ED 19:48
DX: O21.0 Mild hyperemesis gravidarum (principal); O99.331 Smoking (tobacco) complicating pregnancy, first trimester; F17.210 Nicotine dependence, cigarettes, uncomplicated; Z3A.11 11 weeks gestation of pregnancy; Z88.8 Allergy status to other drugs, medicaments and biological substances
CPT/HCPCS: 36415; 80053; 81001; 85007; 85027; 96361; 96374; 96376; 99284; J2405; J7120

== ENCOUNTER 2017-10-21 15:55 | Emergency (ER) | payer SELFPAY ==
[2017-10-21 16:08] VITALS: BP 109/98
[2017-10-21] MEDS ORDERED: Sodium Chloride 0.9% 10 ML Syringe FLUSH PRN (16:36)
[2017-10-21] MEDS ORDERED: Ondansetron 4 MG/2 ML SDV IVPUSH ONE (16:36)
[2017-10-21] MEDS ORDERED: Sodium Chloride 0.9% 2,000 ML IV STA (16:36)
[2017-10-21] MEDS ORDERED: Acetaminophen 325 MG Tab PO ONE (17:20)
--- NOTE | 2017-10-21 17:23 | EDM.PDOC ---
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 She this has been going on for weeks. She has hyper emesis gravidarum. She has no fever but she did have chills. She has no chest pain or shortness of breath. She has no abdominal pain. She has no dysuria. She cannot keep anything down now. Onset: Gradual Duration: Week(s): Severity: Moderate Improves with: Reports: None Worsens with: Reports: None Associated Symptoms: Reports: Fever/Chills, Nausea/Vomiting. Denies: Chest Pain , Headaches, Shortness of Breath Lower Abdominal Pain Score (Numeric/FACES): 2 - Related Data Allergies Allergy/AdvReac Type Severity Reaction Status Date / Time promethazine HCl AdvReac Mild Anxiety Verified 10/21/17 16:08 [From Phenergan] metoclopramide HCl AdvReac Anxiety Verified 10/21/17 16:08 [From Reglan] Home Meds: Home Meds Cyanocobalamin (Vitamin B12) [Vitamin B12] 1,000 mcg IM ASDIRECTED 09/19/17 [ History] Past Medical History HEENT History: Reports: Impaired Vision Respiratory History: Reports: Pneumonia, Recurrent Other Gastrointestinal History: pernicious anemia 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 Hematologic History: Reports: Other (See Below) Other Hematologic History: pernicoius anemia Oncologic (Cancer) History: Reports: None - Infectious Disease History Infectious Disease History: Reports: None - Past Surgical History Female Surgical History: Reports: Tubal Ligation Social & Family History - Family History Family Medical History: Noncontributory - Tobacco Use Smoking Status *Q: Former Smoker Used Tobacco, but Quit: Yes Month/Year Tobacco Last Used: September 2017 - Caffeine Use Caffeine Use: Reports: None - Recreational Drug Use Recreational Drug Use: No ED ROS GENERAL - Review of Systems Review Of Systems: See Below Constitutional: Reports: Chills. Denies: Fever HEENT: Reports: No Symptoms Respiratory: Reports: No Symptoms Cardiovascular: Reports: No Symptoms Endocrine: Reports: No Symptoms GI/Abdominal: Reports: Nausea, Vomiting. Denies: Abdominal Pain : Reports: No Symptoms Musculoskeletal: Reports: No Symptoms Skin: Reports: No Symptoms ED EXAM, GI/ABD - Physical Exam Exam: See Below Exam Limited By: No Limitations General Appearance: Alert, No Apparent Distress Ears: Normal External Exam Nose: Normal Inspection Head: Atraumatic, Normocephalic Neck: Normal Inspection Respiratory/Chest: No Respiratory Distress, Lungs Clear, Normal Breath Sounds Cardiovascular: Regular Rate, Rhythm, No Edema, No Murmur GI/Abdominal Exam: Soft, Non-Tender, No Organomegaly, No Mass Back Exam: Normal Inspection Extremities: Normal Inspection Neurological: Alert, Oriented, No Motor/Sensory Deficits Course - Vital Signs Last Recorded V/S: Last Vital Signs Temp 98.7 F 10/21/17 16:03 Pulse 85 10/21/17 16:03 Resp 12 10/21/17 16:03 BP 109/98 H 10/21/17 16:03 Pulse Ox 98 10/21/17 16:03 Orthostatic Blood Pressure [ 96/75 Standing] Orthostatic Blood Pressure [ 110/93 Sitting] Orthostatic Blood Pressure [ 113/63 Supine] - Orders/Labs/Meds Orders: Active Orders 24 hr Category Date Time Status Peripheral IV Care [RC] . DIRECTED Care 10/21/17 16:37 Active Sodium Chloride 0.9% [Normal Saline] 2,000 ml Med 10/21/17 16:36 Active IV .BOLUS Sodium Chloride 0.9% [Saline Flush] Med 10/21/17 16:36 Active 10 ml FLUSH ASDIRECTED PRN ED Antiemetic Medication Reflex [OM.PC] Stat Oth 10/21/17 16:37 Ordered Peripheral IV Insertion Adult [OM.PC] Stat Oth 10/21/17 16:36 Ordered Medication Orders Sodium Chloride (Normal Saline) 2,000 mls @ 1,000 mls/hr IV .BOLUS STA Stop: 10/21/17 18:35 Last Admin: 10/21/17 16:44 Dose: 1,000 mls/hr Sodium Chloride (Saline Flush) 10 ml FLUSH ASDIRECTED PRN PRN Reason: Keep Vein Open Last Admin: 10/21/17 16:44 Dose: 10 ml Labs: Laboratory Tests 10/21/17 10/21/17 Range/Units 16:46 16:46 WBC 7.77 (3.98-10.04) K/mm3 RBC 3.92 L (3.98-5.22) M/mm3 Hgb 12.2 (11.2-15.7) gm/L Hct 37.3 (34.1-44.9) % MCV 95.2 H (79.4-94.8) fl MCH 31.1 (25.6-32.2) pg MCHC 32.7 (32.2-35.5) g/dl RDW Std Deviation 42.7 (36.4-46.3) fL Plt Count 241 (182-369) K/mm3 MPV 10.7 (9.4-12.3) fl Neut % (Auto) 61.6 (34.0-71.1) % Lymph % (Auto) 28.4 (19.3-51.7) % [place] % (Auto) 8.5 (4.7-12.5) % Eos % (Auto) 1.3 (0.7-5.8) Baso % (Auto) 0.1 (0.1-1.2) % Neut # (Auto) 4.78 (1.56-6.13) K/mm3 Lymph # (Auto) 2.21 (1.18-3.74) K/mm3 [place] # (Auto) 0.66 H (0.24-0.36) K/mm3 Eos # (Auto) 0.10 (0.04-0.36) K/mm3 Baso # (Auto) 0.01 (0.01-0.08) K/mm3 Sodium 137 (136-145) mEq/L Potassium 3.9 (3.5-5.1) mEq/L Chloride 104 (98-107) mEq/L Carbon Dioxide 25 (21-32) mEq/L Anion Gap 11.9 (5-15) BUN 9 (7-18) mg/dL Creatinine 0.8 (0.55-1.02) mg/dL Est Cr Clr Drug Dosing 94.54 mL/min Estimated GFR (MDRD) > 60 (>60) mL/min BUN/Creatinine Ratio 11.3 L (14-18) Glucose 98 (74-106) mg/dL Calcium 9.2 (8.5-10.1) mg/dL Total Bilirubin 0.3 (0.2-1.0) mg/dL AST 17 (15-37) U/L ALT 24 (14-59) U/L Alkaline Phosphatase 44 L (46-116) U/L Total Protein 6.8 (6.4-8.2) g/dl Albumin 2.9 L (3.4-5.0) g/dl Globulin 3.9 gm/dL Albumin/Globulin Ratio 0.7 L (1-2) Lipase 100 (73-393) U/L Meds: Medications Generic Name Dose Route Start Last Admin Trade Name Freq PRN Reason Stop Dose Admin Sodium Chloride 2,000 mls @ 1,000 mls/hr 10/21/17 16:36 10/21/17 16:44 Normal Saline IV 10/21/17 18:35 1,000 mls/hr .BOLUS STA Administration Sodium Chloride 10 ml 10/21/17 16:36 10/21/17 16:44 Saline Flush FLUSH 10 ml ASDIRECTED PRN Administration Keep Vein Open Discontinued Medications Generic Name Dose Route Start Last Admin Trade Name Freq PRN Reason Stop Dose Admin Acetaminophen 975 mg 10/21/17 17:20 10/21/17 17:30 Tylenol PO 10/21/17 17:21 975 mg NOW ONE Administration Ondansetron HCl 4 mg 10/21/17 16:36 10/21/17 16:44 Zofran IVPUSH 10/21/17 16:37 4 mg ONETIME ONE Administration - Re-Assessments/Exams Free Text/Narrative Re-Assessment/Exam: 10/21/17 17:22 I ordered an IV NS 2L bolus, zofran 4mg IV, labs and UA. 10/21/17 17:39 Her CBC and CMP look good. Her lipase is negative. My nurse could not get heart tones so I looked with the US and heart rate was about 140. 10/21/17 18:33 She feels better. I will discharge her home. Departure - Departure Time of Disposition: 18:35 Disposition: Home, Self-Care 01 Condition: Good Clinical Impression: Hyperemesis arising during Qualifiers: Weeks of gestation: less than 8 weeks Qualified Code(s): Z3A.01 - Less than 8 weeks gestation of - Discharge Information Referrals: Otf Womack MD [Primary Care Provider] - 1 Week Forms: ED Department Discharge Additional Instructions: Drink plenty of fluids. Take zofran as needed for the nausea. Please return if you are worse. - My Orders Last 24 Hours: My Active Orders 10/21/17 16:36 Sodium Chloride 0.9% [Normal Saline] 2,000 ml IV .BOLUS Sodium Chloride 0.9% [Saline Flush] 10 ml FLUSH ASDIRECTED PRN Peripheral IV Insertion Adult [OM.PC] Stat 10/21/17 16:37 Peripheral IV Care [RC] . DIRECTED ED Antiemetic Medication Reflex [OM.PC] Stat - Assessment/Plan Last 24 Hours: My Active Orders 10/21/17 16:36 Sodium Chloride 0.9% [Normal Saline] 2,000 ml IV .BOLUS Sodium Chloride 0.9% [Saline Flush] 10 ml FLUSH ASDIRECTED PRN Peripheral IV Insertion Adult [OM.PC] Stat 10/21/17 16:37 Peripheral IV Care [RC] . DIRECTED ED Antiemetic Medication Reflex [OM.PC] Stat
== END 2017-10-21 18:43 | disposition home or self-care (01) ==
LOC: JD.ED 15:55
DX: O21.0 Mild hyperemesis gravidarum (principal); Z88.8 Allergy status to other drugs, medicaments and biological substances; Z87.891 Personal history of nicotine dependence; Z3A.13 13 weeks gestation of pregnancy
CPT/HCPCS: 36415; 80053; 83690; 85025; 96361; 96374; 99284; A9270; J2405; J7040; J7050

== ENCOUNTER 2017-10-23 17:58 | Emergency (ER) | payer SELFPAY ==
[2017-10-23 18:15] VITALS: BP 136/97
[2017-10-23] MEDS ORDERED: Acetaminophen/HYDROcodone 325-5 MG Tab PO ONE (18:31)
--- NOTE | 2017-10-23 18:37 | EDM.PDOC ---
ED HPI GENERAL MEDICAL PROBLEM - General Chief Complaint: Back Pain or Injury Stated Complaint: BACK PAIN-12 WKS PG Time Seen by Provider: 10/23/17 18:19 Source of Information: Reports: Patient History Limitations: Reports: No Limitations - History of Present Illness INITIAL COMMENTS - FREE TEXT/NARRATIVE: patient is a 37-year-old female who is approximately 12 weeks presents ED complaining of lower back pain. States she has a history of chronic low b on on a contract for pain management by [facility] [place] [employer]. She is prescribed fentanyl patch and also morphine. Since been discontinued. Patient states last night while sleeping she was so moved wrong causing discomfort to her low back. States this morning upon standing her legs did feel like they wwere asleep. with walking she fell. She had an episode of incontinence to urine. All symptoms improved drastically over the next 20 minutes. 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 She is scheduled to see her neurosurgeon this coming Tuesday in [place]. She states this happens multiple times throughout the year. Nothing abnormal with recent recurrence. states she spent 3 hours in a hot tub to loosen her muscles up which did help. patient is taking Tylenol with minimally relief.She is requesting something for the pain. Back Pain Score (Numeric/FACES): 10 - Related Data Allergies Allergy/AdvReac Type Severity Reaction Status Date / Time promethazine HCl AdvReac Mild Anxiety Verified 10/23/17 18:11 [From Phenergan] metoclopramide HCl AdvReac Anxiety Verified 10/23/17 18:11 [From Reglan] Home Meds: Home Meds . 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 Hematologic History: Reports: Other (See Below) Other Hematologic History: pernicoius anemia Oncologic (Cancer) History: Reports: None - Infectious Disease History Infectious Disease History: Reports: None - Past Surgical History Female Surgical History: Reports: Tubal Ligation Social & Family History - Family History Family Medical History: Noncontributory - Tobacco Use Smoking Status *Q: Current Every Day Smoker Years of Tobacco use: 15 Packs/Tins Daily: 0.1 - Caffeine Use Caffeine Use: Reports: None - Recreational Drug Use Recreational Drug Use: No ED ROS GENERAL - Review of Systems Review Of Systems: See Below (currently) Constitutional: Reports: No Symptoms HEENT: Reports: No Symptoms Respiratory: Reports: No Symptoms Cardiovascular: Reports: No Symptoms GI/Abdominal: Reports: No Symptoms : Reports: No Symptoms Musculoskeletal: Reports: Back Pain Skin: Reports: No Symptoms Neurological: Reports: No Symptoms Psychiatric: Reports: No Symptoms ED EXAM,LOWER BACK PAIN/INJURY - Physical Exam Exam: See Below Exam Limited By: No Limitations General Appearance: Alert, WD/WN, No Apparent Distress Ears: Hearing Grossly Normal Nose: Normal Inspection Throat/Mouth: Normal Voice, No Airway Compromise Neck: Normal Inspection, Supple Respiratory/Chest: No Respiratory Distress, Lungs Clear, Normal Breath Sounds, No Accessory Muscle Use, Chest Non-Tender Cardiovascular: Normal Peripheral Pulses, Regular Rate, Rhythm GI/Abdominal: Normal Bowel Sounds, Soft, Non-Tender, No Organomegaly Back Exam: Normal Inspection, Decreased Range of Motion, Paraspinal Tenderness, Vertebral Tenderness, Other (Pain noted along the thoracic and upper lumbar spine. No swelling, ecchymosis, or wounds present.) Extremities: Normal Inspection, Normal Range of Motion, Non-Tender, No Pedal Edema Neurological: Alert, Normal Mood/Affect, Normal Dorsiflexion, CN II-XII Intact, Normal Plantar Flexion, Normal Gait, No Motor/Sensory Deficits, Oriented x 3. No: Straight Leg Raise (L), Straight Leg Raise (R), Saddle Anesthesia (Per patient) Psychiatric: Normal Affect, Normal Mood Skin Exam: Warm, Dry, Normal Color, No Rash Course - Vital Signs Last Recorded V/S: Last Vital Signs Temp 98.7 F 10/23/17 18:11 Pulse 105 H 10/23/17 18:11 Resp BP 136/97 H 10/23/17 18:11 Pulse Ox 99 10/23/17 18:11 - Orders/Labs/Meds Meds: Medications Discontinued Medications Generic Name Dose Route Start Last Admin Trade Name Freq PRN Reason Stop Dose Admin Hydrocodone Bitart/Acetaminophen 1 tab 10/23/17 18:31 10/23/17 18:38 Sturdivant 325-5 Mg PO 10/23/17 18:32 1 tab ONETIME ONE Administration - Re-Assessments/Exams Free Text/Narrative Re-Assessment/Exam: Patient has tenderness noted to the thoracic lumbar spine consistent with previous episodes of increased back pain. She has burst disc to the thoracic lumbar spine and was previously in a pain contract with a provider [facility] [employer]. She was on fentanyl, morphine, and morphabond. She has not been taking any pain medications for the past few months. She is approximately 12 weeks . There's been no trauma to precipitate this pain. Examination elicited increased pain to the thoracic lumbar spine. Otherwise her gait is normal. No sensorimotor deficits distally. I will treat her pain with Sturdivant one tab by mouth a 5-325. No prescriptions will be provided on discharge. Of note she is flying to [place] on Tuesday of this coming week to be evaluated by her neurosurgeon. Patient agrees with plan. Has no other questions concerns. Will discharge patient once pain is decreasing. Departure - Departure Time of Disposition: 18:35 Disposition: Home, Self-Care 01 Condition: Good Clinical Impression: Chronic low back pain Qualifiers: Back pain laterality: bilateral Sciatica presence: without sciatica Qualified Code(s): M54.5 - Low back pain - Discharge Information Instructions: Back Pain, Adult, Back Injury Prevention, [id number], Chronic Back Pain Referrals: Penny Dunlap LANDSCAPE ARCHITECTURE PROFESSOR [Ordering Only Provider] - Forms: ED Department Discharge Additional Instructions: You were administered Sturdivant one tab by mouth while in the ED. No driving while taking this medication. Suggest going home and taking Tylenol for discomfort. Apply warm compresses to the affected area. Gentle massage may help as well. Refrain from any activities that cause worsening pain. Follow-up with your neurosurgeon as scheduled for this tuesday in [place]. Return to the ED if you develop any new or worsening symptoms as discussed.
== END 2017-10-23 18:40 | disposition home or self-care (01) ==
LOC: JD.ED 17:58
DX: O99.89 Other specified diseases and conditions complicating pregnancy, childbirth and the puerperium (principal); G89.29 Other chronic pain; M54.5 Low back pain; O99.331 Smoking (tobacco) complicating pregnancy, first trimester; F17.210 Nicotine dependence, cigarettes, uncomplicated; Z3A.12 12 weeks gestation of pregnancy; Z88.8 Allergy status to other drugs, medicaments and biological substances
CPT/HCPCS: 99283; A9270

== ENCOUNTER 2017-11-04 07:31 | Emergency (ER) | payer SELFPAY ==
[2017-11-04] MEDS ORDERED: Ondansetron 4 MG/2 ML SDV IVPUSH ONE (08:03)
[2017-11-04] MEDS ORDERED: Sodium Chloride 0.9% 10 ML Syringe FLUSH PRN (08:03)
[2017-11-04] MEDS ORDERED: Sodium Chloride 0.9% 1,000 ML IV SCH (08:15)
--- NOTE | 2017-11-04 08:31 | EDM.PDOC ---
ED HPI GENERAL MEDICAL PROBLEM - General Chief Complaint: Gastrointestinal Problem Stated Complaint: VOMITING, 15 WKS PG Time Seen by Provider: 11/04/17 07:52 Source of Information: Reports: Patient, RN Notes Reviewed - History of Present Illness INITIAL COMMENTS - FREE TEXT/NARRATIVE: 37-year-old female comes in with nausea vomiting. She is about 15 weeks , states she has hyperemesis syndrome. She feels like she is getting dehydrated. Her mouth feels dry. No significant abdominal pain or cramping at this time. No bleeding or spotting. She has had previous ultrasound, states is intrauterine. Lower Abdominal Pain Score (Numeric/FACES): 0 - Related Data Allergies Allergy/AdvReac Type Severity Reaction Status Date / Time latex Allergy Swollen Verified 11/04/17 08:28 Tongue promethazine HCl AdvReac Mild Anxiety Verified 11/04/17 07:36 [From Phenergan] metoclopramide HCl AdvReac Anxiety Verified 11/04/17 07:36 [From Reglan] Home Meds: Home Meds Doxylamine/Pyridoxine HCl [Diclegis Dr 10-10 mg Tablet] 1 tab PO Q4H PRN [History] Past Medical History HEENT History: Reports: Impaired Vision Respiratory History: Reports: Pneumonia, Recurrent Gastrointestinal History: Reports: Other (See Below) Other Gastrointestinal History: pernicious anemia, hyperemesis. 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 Hematologic History: Reports: Anemia, Other (See Below) Other Hematologic History: pernicoius anemia Oncologic (Cancer) History: Reports: None - Infectious Disease History Infectious Disease History: Reports: Chicken Pox - Past Surgical History Female Surgical History: Reports: Tubal Ligation Social & Family History - Family History Family Medical History: Noncontributory - Tobacco Use Smoking Status *Q: Current Every Day Smoker Years of Tobacco use: 19 Packs/Tins Daily: 2 Second Hand Smoke Exposure: Yes - Caffeine Use Caffeine Use: Reports: None - Recreational Drug Use Recreational Drug Use: No ED ROS GENERAL - Review of Systems Review Of Systems: See Below Constitutional: Denies: No Symptoms HEENT: Reports: Other. Denies: Throat Pain (Mouth feels dry) Respiratory: Denies: Shortness of Breath Cardiovascular: Denies: Chest Pain GI/Abdominal: Reports: Diarrhea (Occasional), Nausea, Vomiting. Denies: Abdominal Pain : Reports: No Symptoms Musculoskeletal: Reports: No Symptoms Skin: Reports: No Symptoms Neurological: Reports: Dizziness (Mild when standing) ED EXAM - Physical Exam Exam: See Below General Appearance: Alert, No Apparent Distress Eye Exam: Bilateral Eye: PERRL Throat/Mouth: Normal Oropharynx ( dry), Other (Oral mucosa mildly) Head: No: Facial Swelling Neck: Supple, Full Range of Motion Respiratory/Chest: No Respiratory Distress, Lungs Clear, Normal Breath Sounds Cardiovascular: Regular Rate, Rhythm GI/Abdominal Exam: Soft, Non-Tender. No: Guarding Neurological: Alert, Oriented, No Motor/Sensory Deficits Skin Exam: Warm, Dry, Normal Color Course - Vital Signs Last Recorded V/S: Last Vital Signs Temp 98.1 F 11/04/17 07:35 Pulse 97 11/04/17 07:35 Resp 16 11/04/17 07:35 BP 114/64 11/04/17 07:35 Pulse Ox 99 11/04/17 07:35 - Orders/Labs/Meds Orders: Active Orders 24 hr Category Date Time Status Peripheral IV Care [RC] . DIRECTED Care 11/04/17 08:03 Active Sodium Chloride 0.9% [Normal Saline] 1,000 ml Med 11/04/17 08:15 Active IV ONETIME Sodium Chloride 0.9% [Saline Flush] Med 11/04/17 08:03 Active 10 ml FLUSH ASDIRECTED PRN Peripheral IV Insertion Adult [OM.PC] Stat Oth 11/04/17 08:03 Ordered Medication Orders Sodium Chloride (Normal Saline) 1,000 mls @ 999 mls/hr IV ONETIME NAJMA Last Admin: 11/04/17 08:25 Dose: 999 mls/hr Sodium Chloride (Saline Flush) 10 ml FLUSH ASDIRECTED PRN PRN Reason: Keep Vein Open Last Admin: 11/04/17 08:20 Dose: 10 ml Meds: Medications Generic Name Dose Route Start Last Admin Trade Name Freq PRN Reason Stop Dose Admin Sodium Chloride 1,000 mls @ 999 mls/hr 11/04/17 08:15 11/04/17 08:25 Normal Saline IV 999 mls/hr ONETIME NAJMA Administration Sodium Chloride 10 ml 11/04/17 08:03 11/04/17 08:20 Saline Flush FLUSH 10 ml ASDIRECTED PRN Administration Keep Vein Open Discontinued Medications Generic Name Dose Route Start Last Admin Trade Name Olga PRN Reason Stop Dose Admin Ondansetron HCl 4 mg 11/04/17 08:03 11/04/17 08:20 Zofran IVPUSH 11/04/17 08:04 4 mg ONETIME ONE Administration - Re-Assessments/Exams Free Text/Narrative Re-Assessment/Exam: 11/04/17 09:45 Have given 1 L of saline, no vomiting while here in the ED, ortho's look really good now after the liter of saline infused. Discharge instructions as documented Departure - Departure Time of Disposition: 09:46 Disposition: Home, Self-Care 01 Condition: Fair Clinical Impression: Hyperemesis gravidarum - Discharge Information Referrals: Penny Dunlap, INTERVENTIONAL RADIOLOGY TECHNOLOGIST [Primary Care Provider] - Forms: ED Department Discharge Additional Instructions: Continue with clear liquids and bland diet as tolerated, continue current meds as prescribed, follow up with Dr. Womack as needed and as scheduled. - My Orders Last 24 Hours: My Active Orders 11/04/17 08:03 Peripheral IV Care [RC] . DIRECTED Sodium Chloride 0.9% [Saline Flush] 10 ml FLUSH ASDIRECTED PRN Peripheral IV Insertion Adult [OM.PC] Stat 11/04/17 08:15 Sodium Chloride 0.9% [Normal Saline] 1,000 ml IV ONETIME - Assessment/Plan Last 24 Hours: My Active Orders 11/04/17 08:03 Peripheral IV Care [RC] . DIRECTED Sodium Chloride 0.9% [Saline Flush] 10 ml FLUSH ASDIRECTED PRN Peripheral IV Insertion Adult [OM.PC] Stat 11/04/17 08:15 Sodium Chloride 0.9% [Normal Saline] 1,000 ml IV ONETIME
[2017-11-04 10:23] VITALS: BP 108/74
== END 2017-11-04 10:19 | disposition home or self-care (01) ==
LOC: JD.ED 07:31
DX: O21.0 Mild hyperemesis gravidarum (principal); O99.332 Smoking (tobacco) complicating pregnancy, second trimester; F17.210 Nicotine dependence, cigarettes, uncomplicated; Z91.040 Latex allergy status; Z88.8 Allergy status to other drugs, medicaments and biological substances; Z3A.15 15 weeks gestation of pregnancy
CPT/HCPCS: 96361; 96374; 99284; J2405; J7040; J7050

== ENCOUNTER 2017-11-05 22:34 | Emergency (ER) | payer SELFPAY ==
[2017-11-06] MEDS ORDERED: Ondansetron 4 MG/2 ML SDV IVPUSH ONE (01:24)
[2017-11-06] MEDS ORDERED: Sodium Chloride 0.9% 1,000 ML IV ONE (01:24)
[2017-11-06 02:40] VITALS: BP 104/74
--- NOTE | 2017-11-06 02:50 | EDM.PDOC ---
ED HPI GENERAL MEDICAL PROBLEM - General Chief Complaint: Headache Stated Complaint: VOMMITING 15 WEEKS PREG Time Seen by Provider: 11/06/17 01:14 Source of Information: Reports: Patient History Limitations: Reports: No Limitations - History of Present Illness INITIAL COMMENTS - FREE TEXT/NARRATIVE: The patient states that she is , despite having undergone a tubal ligation, Ab1. She is not sure when her LMP was, but she is 15-16 weeks by ultrasound. Her Bobbin Painter is Dr. Womack. The patient states that she has been vomiting for the past 3 or 4 weeks, and has had a headache for the past [address] Womack has prescribed Diclegis, but she states that she is unable to tolerate oral medications, therefore she came to the ED for IV fluid and IV Zofran. The patient's PCP is Carmen Dunlap. 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: Reports: Hyperemesis, , Therapeutic (x 1) : 6 Para: 4 Musculoskeletal History: Reports: Fracture (T8-T9 fx) Neurological History: Reports: Headaches, Chronic Psychiatric History: Reports: Anxiety, Depression, Mood Swings Endocrine/Metabolic History: Reports: Obesity/BMI 30+ 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) - Infectious Disease History Infectious Disease History: Reports: Chicken Pox - Past Surgical History Female Surgical History: Reports: Tubal Ligation Social & Family History - Family History Family Medical History: Noncontributory - Tobacco Use Smoking Status *Q: Current Every Day Smoker Years of Tobacco use: 17 Packs/Tins Daily: 2 - Caffeine Use Caffeine Use: Reports: None - Alcohol Use Alcohol Use History: Yes Alcohol Use Frequency: Rarely - Recreational Drug Use Recreational Drug Use: No - Living Situation & Occupation Living situation: Reports: , with Spouse Occupation: Unemployed ED ROS GENERAL - Review of Systems Review Of Systems: ROS reveals no pertinent complaints other than HPI. ED EXAM - Physical Exam Exam: See Below Exam Limited By: No Limitations General Appearance: Alert, WD/WN, No Apparent Distress Eye Exam: Bilateral Eye: Normal Inspection Ears: Normal External Exam, Hearing Grossly Normal Nose: Normal Inspection, No Blood Throat/Mouth: Normal Inspection, Normal Lips, Normal Voice, No Airway Compromise Head: Atraumatic, Normocephalic Neck: Normal Inspection, Full Range of Motion Respiratory/Chest: No Respiratory Distress, Lungs Clear, Normal Breath Sounds, No Accessory Muscle Use Cardiovascular: Normal Peripheral Pulses, Regular Rate, Rhythm, No Gallop, No JVD, No Murmur, No Rub GI/Abdominal Exam: Normal Bowel Sounds, Soft, Non-Tender, No Organomegaly, No Distention, No Abnormal Bruit, No Mass Rectal Exam: Deferred Back Exam: Normal Inspection, Full Range of Motion, NT Extremities: Normal Inspection, Normal Range of Motion, Normal Capillary Refill Neurological: Alert, Oriented, Normal Cognition, No Motor/Sensory Deficits Psychiatric: Normal Affect Skin Exam: Warm, Dry, Intact, Normal Color, No Rash Course - Vital Signs Last Recorded V/S: Last Vital Signs Temp 36.7 C 11/05/17 23:08 Pulse 79 11/06/17 02:40 Resp 18 11/06/17 02:40 BP 104/74 11/06/17 02:40 Pulse Ox 96 11/06/17 02:40 - Orders/Labs/Meds Labs: Laboratory Tests 11/06/17 Range/Units 00:40 Sodium 138 (136-145) mEq/L Potassium 3.6 (3.5-5.1) mEq/L Chloride 106 (98-107) mEq/L Carbon Dioxide 22 (21-32) mEq/L Anion Gap 13.6 (5-15) BUN 11 (7-18) mg/dL Creatinine 0.7 (0.55-1.02) mg/dL Est Cr Clr Drug Dosing 108.04 mL/min Estimated GFR (MDRD) > 60 (>60) mL/min BUN/Creatinine Ratio 15.7 (14-18) Glucose 105 (74-106) mg/dL Calcium 8.5 (8.5-10.1) mg/dL Total Bilirubin 0.4 (0.2-1.0) mg/dL AST 25 (15-37) U/L ALT 30 (14-59) U/L Alkaline Phosphatase 51 (46-116) U/L Total Protein 6.9 (6.4-8.2) g/dl Albumin 2.8 L (3.4-5.0) g/dl Globulin 4.1 gm/dL Albumin/Globulin Ratio 0.7 L (1-2) Meds: Medications Discontinued Medications Generic Name Dose Route Start Last Admin Trade Name Freq PRN Reason Stop Dose Admin Sodium Chloride 1,000 mls @ 999 mls/hr 11/06/17 01:24 11/06/17 01:36 Normal Saline IV 11/06/17 02:24 999 mls/hr ONETIME ONE Administration Ondansetron HCl 4 mg 11/06/17 01:24 11/06/17 01:36 Zofran IVPUSH 11/06/17 01:25 4 mg ONETIME ONE Administration - Re-Assessments/Exams Free Text/Narrative Re-Assessment/Exam: 11/06/17 02:39 The patient received 1 L NS and Zofran 4 mg IV, and is feeling better. Her CMP is completely normal. I will discharge her home with a prescription for Zofran ODT, 5 tablets, that should get her through until she can see Dr. Womack. Departure - Departure Time of Disposition: 02:40 Disposition: Home, Self-Care 01 Condition: Good Clinical Impression: Hyperemesis gravidarum - Discharge Information Prescriptions: Ondansetron [Zofran ODT] 1 tab PO Q8H PRN #5 tab.dis PRN Reason: Nausea/Vomiting Instructions: Hyperemesis Gravidarum Referrals: Penny Dunlap NP [Primary Care Provider] - Otf Womack MD [Family Provider] - Forms: ED Department Discharge Additional Instructions: You were seen in the emergency room for persistent vomiting during , and feeling dehydrated. Workup in the ER included a comprehensive metabolic panel, which returned entirely normal. You did not have any electrolyte abnormalities. You were not dehydrated. You received 1 L of IV fluid in the ER, along with 4 mg of IV Zofran. A prescription for oral Zofran has been sent to the [facility] , located across the street from [facility]. Dissolve 1 tablet on your tongue up to every 8 hours, as needed for nausea/vomiting. Stay adequately hydrated. Eat a bland diet. Follow-up with your Bobbin Painter, Dr. Womack, at the next available appointment. If any other problems, please do not hesitate to return to the ER.
== END 2017-11-06 03:07 | disposition home or self-care (01) ==
LOC: JD.ED 22:34
DX: O21.0 Mild hyperemesis gravidarum (principal); E66.9 Obesity, unspecified; O99.332 Smoking (tobacco) complicating pregnancy, second trimester; F17.210 Nicotine dependence, cigarettes, uncomplicated; Z91.040 Latex allergy status; Z88.8 Allergy status to other drugs, medicaments and biological substances; Z3A.15 15 weeks gestation of pregnancy
CPT/HCPCS: 36415; 80053; 96361; 96374; 99284; J2405; J7040

== ENCOUNTER 2017-11-13 12:09 | Emergency (ER) | payer SELFPAY ==
[2017-11-13 12:18] VITALS: BP 117/77
[2017-11-13] MEDS ORDERED: Sodium Chloride 0.9% 10 ML Syringe FLUSH PRN (12:42)
[2017-11-13] MEDS ORDERED: Dextrose 5%-0.9% NaCl 1,000 ML IV SCH (12:45)
[2017-11-13] MEDS ORDERED: Ondansetron 8 MG in Sodium Chloride 0.9% 50 ML IV ONE (12:52)
[2017-11-13] MEDS ORDERED: Ondansetron 4 MG/2 ML SDV IVPUSH ONE (12:58)
[2017-11-13] MEDS ORDERED: HYDROmorphone 0.5 MG/0.5 ML SYRINGE IVPUSH ONE (12:58)
--- NOTE | 2017-11-13 13:08 | EDM.PDOC ---
ED HPI GENERAL MEDICAL PROBLEM - General Chief Complaint: Gastrointestinal Problem Stated Complaint: 16 WEEKS AND VOMITING Time Seen by Provider: 11/13/17 13:00 Source of Information: Reports: Patient, Old Records History Limitations: Reports: No Limitations - History of Present Illness INITIAL COMMENTS - FREE TEXT/NARRATIVE: This is a 37-year-old female that comes in for nausea and vomiting 1 day. She states the nausea started yesterday around 9 AM and has been nonstop. She does have a history of hyperemesis with her past pregnancies and was seen here last week seen for the same reason. She states that when she comes here she gets fluids and Zofran which helps. She stated she was given a prescription of Zofran last week from here to take at home but ran out of the prescription before she could see her primary care provider Dr. Womack. Today she is complaining of nausea/vomiting, diarrhea, chills, and 9/10 migraine. She states that she usually takes Maxalt for migraines but because she's she does not take anymore. She took some Tylenol 6 hours ago without relief. She is unable to keep any foods down including Jell-O or Gatorade. - Related Data Allergies Allergy/AdvReac Type Severity Reaction Status Date / Time latex Allergy Swollen Verified 11/04/17 08:28 Tongue promethazine HCl AdvReac Mild Anxiety Verified 11/04/17 07:36 [From Phenergan] metoclopramide HCl AdvReac Anxiety Verified 11/04/17 07:36 [From Reglan] Home Meds: Home Meds Doxylamine/Pyridoxine HCl [Gina Guerrero 10-10 mg Tablet] 1 tab PO Q4H PRN [History] Ondansetron [Zofran ODT] 1 tab PO Q8H PRN #5 tab.dis 11/06/17 [Rx] Ondansetron [Zofran ODT] 4 mg PO Q8H PRN 4 Days #12 tab.dis 11/13/17 [Rx] Past Medical History HEENT History: Reports: Impaired Vision Respiratory History: Reports: Pneumonia, Recurrent Gastrointestinal History: Reports: Other (See Below) Other Gastrointestinal History: pernicious anemia, hyperemesis. 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 Endocrine/Metabolic History: Reports: Obesity/BMI 30+ Hematologic History: Reports: Anemia Other Hematologic History: pernicoius anemia Oncologic (Cancer) History: Reports: None - Infectious Disease History Infectious Disease History: Reports: Chicken Pox - Past Surgical History Female Surgical History: Reports: Tubal Ligation Social & Family History - Family History Family Medical History: Noncontributory - Tobacco Use Smoking Status *Q: Never Smoker - Caffeine Use Caffeine Use: Reports: None - Recreational Drug Use Recreational Drug Use: No - Living Situation & Occupation Living situation: Reports: , with Spouse Occupation: Unemployed ED ROS GENERAL - Review of Systems Review Of Systems: See Below Constitutional: Reports: Chills. Denies: Fever HEENT: Reports: Other (Sensitivity to light d/t migraine) Respiratory: Reports: No Symptoms. Denies: Hemoptysis Cardiovascular: Reports: No Symptoms GI/Abdominal: Reports: Diarrhea, Nausea, Vomiting. Denies: Abdominal Pain, Hematemesis, Hematochezia : Reports: No Symptoms Neurological: Reports: Headache (migraine 02/06) Psychiatric: Reports: No Symptoms ED EXAM, GI/ABD - Physical Exam Exam: See Below Exam Limited By: No Limitations General Appearance: Alert, WD/WN, Mild Distress Eyes: Bilateral: Normal Appearance (PERRLA), EOMI Throat/Mouth: Normal Inspection, Normal Gums, Normal Oropharynx, Normal Voice, No Airway Compromise, Other (dry lips and mucosa, some front teeth missing) Head: Atraumatic, Normocephalic Respiratory/Chest: No Respiratory Distress, Lungs Clear, Normal Breath Sounds, No Accessory Muscle Use, Chest Non-Tender Cardiovascular: Normal Peripheral Pulses, Regular Rate, Rhythm, No Edema, No Gallop, No JVD, No Murmur, No Rub GI/Abdominal Exam: Soft, Non-Tender, Pelvis Stable, Other (hyperactive bowel sounds) Neurological: Alert, Oriented, CN II-XII Intact, Normal Cognition, Normal Gait, Normal Reflexes, No Motor/Sensory Deficits Psychiatric: Normal Affect, Normal Mood Course - Vital Signs Last Recorded V/S: Last Vital Signs Temp 97.5 F 11/13/17 12:16 Pulse 88 11/13/17 12:16 Resp 18 11/13/17 12:16 BP 117/77 11/13/17 12:16 Pulse Ox 99 11/13/17 12:16 Orthostatic Blood Pressure [ 118/77 Standing] Orthostatic Blood Pressure [ 122/89 Sitting] Orthostatic Blood Pressure [ 114/74 Supine] - Orders/Labs/Meds Orders: Active Orders 24 hr Category Date Time Status Orthostatic Vital Signs [RC] ASDIRECTED Care 11/13/17 12:43 Active Peripheral IV Care [RC] . DIRECTED Care 11/13/17 12:42 Active Dextrose 5%-0.9% NaCl [Dextrose 5%-Normal Saline] 1,000 Med 11/13/17 12:45 Active ml IV ASDIRECTED Sodium Chloride 0.9% [Saline Flush] Med 11/13/17 12:42 Active 10 ml FLUSH ASDIRECTED PRN Peripheral IV Insertion Adult [OM.PC] Routine Oth 11/13/17 12:42 Ordered Medication Orders Dextrose/Sodium Chloride (Dextrose 5%-Normal Saline) 1,000 mls @ 999 mls/hr IV ASDIRECTED NAJMA Last Admin: 11/13/17 13:19 Dose: 999 mls/hr Sodium Chloride (Saline Flush) 10 ml FLUSH ASDIRECTED PRN PRN Reason: Keep Vein Open Last Admin: 11/13/17 13:18 Dose: 10 ml Meds: Medications Generic Name Dose Route Start Last Admin Trade Name Freq PRN Reason Stop Dose Admin Dextrose/Sodium Chloride 1,000 mls @ 999 mls/hr 11/13/17 12:45 11/13/17 13:19 Dextrose 5%-Normal Saline IV 999 mls/hr ASDIRECTED NAJMA Administration Sodium Chloride 10 ml 11/13/17 12:42 11/13/17 13:18 Saline Flush FLUSH 10 ml ASDIRECTED PRN Administration Keep Vein Open Discontinued Medications Generic Name Dose Route Start Last Admin Trade Name Freq PRN Reason Stop Dose Admin Hydromorphone HCl 0.5 mg 11/13/17 12:58 11/13/17 13:18 Dilaudid IVPUSH 11/13/17 12:59 0.5 mg ONETIME ONE Administration Ondansetron HCl 8 mg/ Sodium 54 mls @ 100 mls/hr 11/13/17 12:52 Chloride IV 11/13/17 13:24 ONETIME ONE Ondansetron HCl 4 mg 11/13/17 12:58 11/13/17 13:18 Zofran IVPUSH 11/13/17 12:59 4 mg ONETIME ONE Administration Departure - Departure Time of Disposition: 14:25 Disposition: Home, Self-Care 01 Condition: Good Clinical Impression: Hyperemesis arising during - Discharge Information Prescriptions: Ondansetron [Zofran ODT] 4 mg PO Q8H PRN 4 Days #12 tab.dis PRN Reason: Nausea Instructions: Nausea and Vomiting, Adult, Bdys-mg-[id number], Morning Sickness, Easy- to-Read Referrals: Penny Dunlap GENERAL PURCHASING AGENT [Primary Care Provider] - Forms: ED Department Discharge Additional Instructions: Take Zofran as needed every 8 hours for nausea relief. BRAT diet: Bananas, Rice, Applesauce, [place] and Gatorade. Try to stay hydrated by drinking water. Follow up with your PCP on Tuesday for continued Zofran prescription. If worsening of symptoms, return to ED. - My Orders Last 24 Hours: My Active Orders 11/13/17 12:42 Peripheral IV Care [RC] . DIRECTED Sodium Chloride 0.9% [Saline Flush] 10 ml FLUSH ASDIRECTED PRN Peripheral IV Insertion Adult [OM.PC] Routine 11/13/17 12:43 Orthostatic Vital Signs [RC] ASDIRECTED 11/13/17 12:45 Dextrose 5%-0.9% NaCl [Dextrose 5%-Normal Saline] 1,000 ml IV ASDIRECTED - Assessment/Plan Last 24 Hours: My Active Orders 11/13/17 12:42 Peripheral IV Care [RC] . DIRECTED Sodium Chloride 0.9% [Saline Flush] 10 ml FLUSH ASDIRECTED PRN Peripheral IV Insertion Adult [OM.PC] Routine 11/13/17 12:43 Orthostatic Vital Signs [RC] ASDIRECTED 11/13/17 12:45 Dextrose 5%-0.9% NaCl [Dextrose 5%-Normal Saline] 1,000 ml IV ASDIRECTED
== END 2017-11-13 14:38 | disposition home or self-care (01) ==
LOC: JD.ED 12:09
DX: O21.9 Vomiting of pregnancy, unspecified (principal); E66.9 Obesity, unspecified; O99.210 Obesity complicating pregnancy, unspecified trimester; Z91.040 Latex allergy status; Z88.8 Allergy status to other drugs, medicaments and biological substances; E66.2 Morbid (severe) obesity with alveolar hypoventilation
CPT/HCPCS: 96361; 96374; 96375; 99283; J1170; J2405; J7042; J7050; 99284

== ENCOUNTER 2017-11-17 22:12 | Emergency (ER) | payer SELFPAY ==
[2017-11-17] MEDS ORDERED: HYDROmorphone 0.5 MG/0.5 ML SYRINGE IM ONE (23:59)
[2017-11-17] MEDS ORDERED: Promethazine 25 MG/ML SDV IM ONE (23:59)
--- NOTE | 2017-11-18 00:04 | EDM.PDOC ---
ED HPI GENERAL MEDICAL PROBLEM - General Chief Complaint: Back Pain or Injury Stated Complaint: MIDDLE OF BACK HURTS Time Seen by Provider: 11/17/17 23:59 Source of Information: Reports: Patient History Limitations: Reports: No Limitations - History of Present Illness INITIAL COMMENTS - FREE TEXT/NARRATIVE: 37-year-old female with chronic mid back pain since last December when she was involved in a bit. It is thought that she has a burst fracture of thoracic 9. Rarely being followed by neurologist surgery. She has an appointment for Tuesday next week. Over the last 24 hours pain has increased tremendously in her mid lower back radiating to the left flank area. Movement will cause pain that almost puts her to the floor. She comes to the ED primarily seeking pain management. She does not like to have any narcotics at home and is worried that she may become addicted. Of note she is currently 16 weeks . Onset: Today Onset Date: 11/17/17 Onset Time: 07:00 Duration: Hour(s): (Awoke with diffuse mid low back pain which is worsened as the day has gone on.) Location: Reports: Back (Mid lower back), Radiates to (Radiates to the left costal margin.) Quality: Reports: Ache, Pressure, Throbbing, Other (Sharp and stabbing with certain movements due to muscle spasm) Severity: Severe (Rates the pain as 8 or 9 out of 10.) Improves with: Reports: Rest Worsens with: Reports: Movement Context: Reports: Other (Previous trauma about a year ago. [place] by MRI to have a compression fracture of thoracic 9 vertebral.). Denies: Activity, Exercise, Lifting, Sick Contact, Trauma Associated Symptoms: Reports: Loss of Appetite, Malaise. 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 Back Pain Score (Numeric/FACES): 8 - Related Data Allergies Allergy/AdvReac Type Severity Reaction Status Date / Time latex Allergy Swollen Verified 11/17/17 22:28 Tongue promethazine HCl AdvReac Mild Anxiety Verified 11/17/17 22:28 [From Phenergan] metoclopramide HCl AdvReac Anxiety Verified 11/17/17 22:28 [From Reglan] Home Meds: Home Meds Doxylamine/Pyridoxine HCl [Diclegis Dr 10-10 mg Tablet] 1 tab PO Q4H PRN [History] Ondansetron [Zofran ODT] 1 tab PO Q8H PRN #5 tab.dis 11/06/17 [Rx] Ondansetron [Zofran ODT] 4 mg PO Q8H PRN 4 Days #12 tab.dis 11/13/17 [Rx] Past Medical History HEENT History: Reports: Impaired Vision Respiratory History: Reports: Pneumonia, Recurrent Gastrointestinal History: Reports: Other (See Below) Other Gastrointestinal History: pernicious anemia, hyperemesis. 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 Endocrine/Metabolic History: Reports: Obesity/BMI 30+ Hematologic History: Reports: Anemia Other Hematologic History: pernicoius anemia Oncologic (Cancer) History: Reports: None - Infectious Disease History Infectious Disease History: Reports: Chicken Pox - Past Surgical History Female Surgical History: Reports: Tubal Ligation Social & Family History - Family History Family Medical History: Noncontributory - Tobacco Use Smoking Status *Q: Current Every Day Smoker Years of Tobacco use: 15 Packs/Tins Daily: 0.5 - Caffeine Use Caffeine Use: Reports: None - Recreational Drug Use Recreational Drug Use: No - Living Situation & Occupation Living situation: Reports: , with Spouse Occupation: Unemployed ED ROS GENERAL - Review of Systems Review Of Systems: See Below Constitutional: Reports: Malaise, Fatigue, Decreased Appetite. Denies: Fever, Chills HEENT: Reports: No Symptoms Respiratory: Reports: No Symptoms Cardiovascular: Reports: No Symptoms Endocrine: Reports: Fatigue GI/Abdominal: Reports: Decreased Appetite. Denies: Abdominal Pain : Reports: Frequency, Other (Is 16 weeks .) Musculoskeletal: Reports: Back Pain (See history of present illness), Joint Pain (Right knee pain. Injured at the same time as her back) Skin: Reports: No Symptoms Neurological: Reports: No Symptoms Psychiatric: Reports: No Symptoms Hematologic/Lymphatic: Reports: No Symptoms Immunologic: Reports: No Symptoms ED EXAM,LOWER BACK PAIN/INJURY - Physical Exam Exam: See Below Exam Limited By: No Limitations General Appearance: Moderate Distress (Very limited ability to get up from a seated position and stand for examination.) Respiratory/Chest: No Respiratory Distress, Lungs Clear, Normal Breath Sounds, Chest Non-Tender Cardiovascular: Normal Peripheral Pulses, Regular Rate, Rhythm, No Edema, No Gallop, No Murmur GI/Abdominal: Normal Bowel Sounds, Other (Fundal height correlates with a 16 week i.e. half-way between the symphysis pubis and the umbilicus.) Back Exam: Other (No definitive muscle spasm is evident. There is localized tenderness to the left side of her back particularly at thoracic 9 and 10 level and also at lumbar one area and lumbar 4-5 area.) Extremities: Normal Inspection, Normal Range of Motion, Non-Tender, No Pedal Edema Neurological: Alert, Normal Mood/Affect, CN II-XII Intact, Oriented x 3, Difficulty Walking. No: Normal Gait, Babinski, Straight Leg Raise (L), Straight Leg Raise (R) Psychiatric: Normal Affect, Normal Mood Skin Exam: Warm, Dry, Intact, Normal Color, No Rash Course - Vital Signs Last Recorded V/S: Last Vital Signs Temp 36.8 C 11/18/17 01:05 Pulse 79 11/18/17 01:05 Resp 18 11/18/17 01:05 BP 134/74 11/18/17 01:05 Pulse Ox 96 11/18/17 01:05 - Orders/Labs/Meds Meds: Medications Discontinued Medications Generic Name Dose Route Start Last Admin Trade Name Freq PRN Reason Stop Dose Admin Hydromorphone HCl 1.5 mg 11/17/17 23:59 11/18/17 00:55 Dilaudid IM 11/18/17 00:00 1.5 mg ONETIME ONE Administration Promethazine HCl 25 mg 11/17/17 23:59 11/18/17 01:07 Phenergan IM 11/18/17 00:00 25 mg ONETIME ONE Administration - Radiology Interpretation Free Text/Narrative:: 37-year-old female presents to the ED with an acute exacerbation of low back pain. Patient had previous trauma in December last year and is felt to have suffered a burst compression fracture of thoracic 9 vertebral. Intermittently she gets severe exacerbation of the pain with radicular pain along the costal margin. This is on the left side. She states she awoke with pain much worse than normal this morning and it is progressed as the day has gone on. She states at present she is unable to sleep because of the severity of the discomfort. Examination is nonfocal show any localized muscle spasm. Pain appears to be deeper in origin and are back. There is facet joint tenderness but pain is deeper. Plan she will receive an IM injection of 1.5 mg of Dilaudid with Phenergan 25 mg IM as well. She requests no pain medication for home as she is concerned she may become addicted to it. Of note she is 16 weeks gestation. She has prostate follow-up with her neurosurgeon next week. Planned neurosurgical intervention was placed on hold due to development of . Departure - Departure Time of Disposition: 00:01 Disposition: Home, Self-Care 01 Condition: Fair Clinical Impression: History of vertebral compression fracture, Second trimester - Discharge Information Instructions: Second Trimester of Referrals: Penny Dunlap NP [Primary Care Provider] - Forms: ED Department Discharge Additional Instructions: Evaluation in the emergency room tonight due to flareup of mid lower back pain. Known compression fracture of thoracic 9 vertebra probably about a year ago. Follow-up with neurosurgery next week as planned. Flareup of pain started today. Primary reason for visit to the ED was for pain management. You therefore received an injection of Dilaudid 1.5 mg with Phenergan 25 mg to relieve pain. Expected to cause significance drowsiness and sedation overnight. Follow-up with personal physician/neurosurgeon as planned.
[2017-11-18 01:29] VITALS: BP 134/74
== END 2017-11-18 01:05 | disposition home or self-care (01) ==
LOC: JD.ED 22:12
DX: O09.522 Supervision of elderly multigravida, second trimester (principal); O99.89 Other specified diseases and conditions complicating pregnancy, childbirth and the puerperium; M54.5 Low back pain; O99.332 Smoking (tobacco) complicating pregnancy, second trimester; F17.210 Nicotine dependence, cigarettes, uncomplicated; Z79.899 Other long term (current) drug therapy; Z87.440 Personal history of urinary (tract) infections; Z87.01 Personal history of pneumonia (recurrent); Z3A.16 16 weeks gestation of pregnancy; Z91.040 Latex allergy status
CPT/HCPCS: 96372; 99283; J1170; J2550

== ENCOUNTER 2017-11-20 22:12 | Emergency (ER) | payer SELFPAY ==
[2017-11-20 22:28] VITALS: BP 135/87
--- NOTE | 2017-11-20 22:51 | EDM.PDOC ---
ED HPI GENERAL MEDICAL PROBLEM - General Chief Complaint: Back Pain or Injury Stated Complaint: FALL Time Seen by Provider: 11/20/17 22:29 Source of Information: Reports: Patient, Old Records History Limitations: Reports: No Limitations - History of Present Illness INITIAL COMMENTS - FREE TEXT/NARRATIVE: The patient states that she has "blowout" fractures of T8/T9. She is also 17-18 weeks gestation, Ab1. She states that she was playing basketball around 16:00 this afternoon, tripped , falling onto her back, not her buttocks. She states that she did not strike her head. She states that she lost feeling in both of her lower extremities, that she vomited, and had incontinence of both bowel and bladder. She states that she has had similar symptoms many times in the past. She states that she took an ice bath for about an hour, and that her symptoms subsequently resolved completely by 21:00 or 21:30. At this time, the patient states that she has a headache. The patient has a history of chronic headaches. No other symptoms at present. The patient states that she is scheduled for a MRI of her back at [facility] this coming 11/23/2017. The patient's PCP is Carmen Dunlap. Her Dredge Pumper is Dr. Womack. 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, , Therapeutic (x 1) : 6 Para: 4 Musculoskeletal History: Reports: Fracture (T8/T9) Neurological History: Reports: Headaches, Chronic Psychiatric History: Reports: Anxiety, Depression, Mood Swings Endocrine/Metabolic History: Reports: Obesity/BMI 30+ 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) - Infectious Disease History Infectious Disease History: Reports: Chicken Pox - Past Surgical History Female Surgical History: Reports: Tubal Ligation Social & Family History - Family History Family Medical History: Noncontributory - Tobacco Use Smoking Status *Q: Current Every Day Smoker Years of Tobacco use: 17 Packs/Tins Daily: 2 - Caffeine Use Caffeine Use: Reports: None - Alcohol Use Alcohol Use History: Yes Alcohol Use Frequency: Rarely - Recreational Drug Use Recreational Drug Use: No - Living Situation & Occupation Living situation: Reports: , with Spouse Occupation: Unemployed ED ROS GENERAL - Review of Systems Review Of Systems: ROS reveals no pertinent complaints other than HPI. ED EXAM, NEURO - Physical Exam Exam: See Below Exam Limited By: No Limitations General Appearance: Alert, WD/WN, No Apparent Distress Eye Exam: Bilateral Eye: EOMI, Normal Inspection, PERRL Ears: Normal External Exam, Hearing Grossly Normal Nose: Normal Inspection, No Blood Throat/Mouth: Normal Inspection, Normal Lips, Normal Voice, No Airway Compromise Head Exam: Atraumatic, Normocephalic Neck: Normal Inspection, Full Range of Motion Respiratory/Chest: No Respiratory Distress, Lungs Clear, Normal Breath Sounds, No Accessory Muscle Use Cardiovascular: Normal Peripheral Pulses, Regular Rate, Rhythm, No Gallop, No JVD, No Murmur, No Rub GI/Abdominal: Normal Bowel Sounds, Soft, Non-Tender, No Distention, No Abnormal Bruit, Other (Obese) (Female) Exam: Deferred Rectal (Female) Exam: Deferred Neurological: Alert, Normal Dorsiflexion, CN II-XII Intact, Normal Plantar Flexion, No Motor/Sensory Deficits, Oriented x 3 Back Exam: Normal Inspection, Full Range of Motion, NT Extremities: Normal Inspection, Normal Range of Motion, No Pedal Edema, Normal Capillary Refill Psychiatric: Normal Affect Skin Exam: Warm, Dry, Intact, Normal Color, No Rash Course - Vital Signs Last Recorded V/S: Last Vital Signs Temp 36.6 C 11/20/17 22:26 Pulse 82 11/20/17 22:26 Resp 20 11/20/17 22:26 BP 135/87 11/20/17 22:26 Pulse Ox 98 11/20/17 22:26 - Orders/Labs/Meds Orders: Active Orders 24 hr Category Date Time Status Heart Tones [RC] ASDIRECTED Care 11/20/17 22:42 Ordered - Re-Assessments/Exams Free Text/Narrative Re-Assessment/Exam: 11/20/17 22:43 The bilateral lower extremity numbness, and incontinence of bowel and bladder have all resolved, after the patient denies past for an hour. She states that the symptoms happened to her many times in the past. She is scheduled to undergo a MRI of her thoracic spine at [facility] this coming Tuesday, . For today's purposes, we will check heart tones, but no other workup is indicated at this time. The patient was offered Tylenol for her headache, which she declined. 11/20/17 22:55 heart tones are 153 bpm. Departure - Departure Time of Disposition: 22:44 Disposition: Home, Self-Care 01 Condition: Good Clinical Impression: Spinal cord injury - Discharge Information Referrals: Otf Womack MD [Primary Care Provider] - Penny Dunlap NP [Ordering Only Provider] - Additional Instructions: You were seen in the emergency room after tripping and falling onto your back, resulting in temporary loss of feeling to both of your lower extremities, as well as incontinence of bowel and bladder. Your symptoms resolved completely after you took an ice bath. No abnormalities were found on physical examination. No further workup was indicated. We recommend that you continue with the MRI of your back as previously scheduled this 11/23/2017. If any other problems, please do not hesitate to return to the ER. - My Orders Last 24 Hours: My Active Orders 11/20/17 22:42 Heart Tones [RC] ASDIRECTED - Assessment/Plan Last 24 Hours: My Active Orders 11/20/17 22:42 Heart Tones [RC] ASDIRECTED
== END 2017-11-20 22:54 | disposition home or self-care (01) ==
LOC: JD.ED 22:12
DX: O9A.212 Injury, poisoning and certain other consequences of external causes complicating pregnancy, second trimester (principal); S24.109A Unspecified injury at unspecified level of thoracic spinal cord, initial encounter; O99.332 Smoking (tobacco) complicating pregnancy, second trimester; F17.210 Nicotine dependence, cigarettes, uncomplicated; Z91.040 Latex allergy status; Z88.8 Allergy status to other drugs, medicaments and biological substances; Z3A.18 18 weeks gestation of pregnancy; W01.0XXA Fall on same level from slipping, tripping and stumbling without subsequent striking against object, initial encounter
CPT/HCPCS: 99283

== ENCOUNTER 2018-01-07 18:16 | Emergency (ER) | payer SELFPAY ==
[2018-01-07 18:30] VITALS: BP 136/86
[2018-01-07] MEDS ORDERED: Acetaminophen Soln 650 MG/20.3 ML UD Cup PO ONE (19:11)
--- NOTE | 2018-01-07 19:30 | EDM.PDOC ---
ED HPI GENERAL MEDICAL PROBLEM - General Chief Complaint: Headache Stated Complaint: SPINAL HEAD ACH Time Seen by Provider: 01/07/18 19:00 Source of Information: Reports: Patient History Limitations: Reports: No Limitations - History of Present Illness INITIAL COMMENTS - FREE TEXT/NARRATIVE: Patient is a 37-year-old female who is 24 weeks who presents to the ED complaining of chronic right-sided headache with intermittent blurred vision, intermittent ringing in the ear, and intermittent dizziness. She has persistent nausea with emesis which started with . Headache has been persistent, chronic, with no significant changes as of recent. She's been evaluated by neurosurgeon/pain specialist and advised she has a small bone fragment protruding from the lumbar vertebrae that with movement punctures the spinal cord causing spinal fluid leak. Thus contributing the headaches and worsening n /v. She has had two blood patches over the past 9 wks with the third scheduled for this coming Tuesday. She states the headache is no different to previous episodes. Unchanged recently. She states the headache dissipates with ice to the back of the head and also laying flat. She has been eating and drinking with no issues other than the intermittent nausea with emesis. She's had routine checkups for the baby with no concerns noted. The fetus has been moving regularly. Patient denies any fever, stiff neck, chest pain, shortness of breath , abdominal pain, dysuria, numbness or tingling to extremities, weakness, difficulty walking, recent head trauma, or any additional complaint. Right Headache Pain Score (Numeric/FACES): 8 - Related Data Allergies Allergy/AdvReac Type Severity Reaction Status Date / Time latex Allergy Swollen Verified 11/17/17 22:28 Tongue promethazine HCl AdvReac Mild Anxiety Verified 11/17/17 22:28 [From Phenergan] metoclopramide HCl AdvReac Anxiety Verified 11/17/17 22:28 [From Reglan] Home Meds: Home Meds Doxylamine/Pyridoxine HCl [Diclegis Dr 10-10 mg Tablet] 1 tab PO Q4H PRN [History] Ondansetron [Zofran ODT] 4 mg PO Q8H PRN 4 Days #12 tab.dis 11/13/17 [Rx] Aller Xt-Tree Pollen-Melaleuca [Melaleuca] 1 tab PO DAILY 01/07/18 [History] Past Medical History HEENT History: Reports: Impaired Vision Respiratory History: Reports: Pneumonia, Recurrent Gastrointestinal History: Reports: Other (See Below) Other Gastrointestinal History: pernicious anemia, hyperemesis. 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 Endocrine/Metabolic History: Reports: Obesity/BMI 30+ Hematologic History: Reports: Anemia Other Hematologic History: pernicoius anemia Oncologic (Cancer) History: Reports: None - Infectious Disease History Infectious Disease History: Reports: Chicken Pox - Past Surgical History Female Surgical History: Reports: Tubal Ligation Social & Family History - Family History Family Medical History: Noncontributory - Tobacco Use Smoking Status *Q: Current Every Day Smoker Years of Tobacco use: 15 Packs/Tins Daily: 0.3 - Caffeine Use Caffeine Use: Reports: None - Recreational Drug Use Recreational Drug Use: Yes Drug Use in Last 12 Months: Yes Other Recreational Drug Type: no drugs since - Living Situation & Occupation Living situation: Reports: , with Spouse Occupation: Unemployed ED ROS GENERAL - Review of Systems Review Of Systems: ROS reveals no pertinent complaints other than HPI. - Physical Exam Exam: See Below Exam Limited By: No Limitations General Appearance: Alert, WD/WN, No Apparent Distress Eye Exam: Bilateral Eye: EOMI, Nystagmus (none noted), PERRL, Vision Changes Ears: Hearing Grossly Normal Nose: Normal Inspection Throat/Mouth: Normal Inspection, Normal Oropharynx, Normal Voice, No Airway Compromise Head Exam: Atraumatic, Normocephalic Neck: Normal Inspection, Supple, Non-Tender, Full Range of Motion Respiratory/Chest: No Respiratory Distress, Lungs Clear, Normal Breath Sounds, No Accessory Muscle Use Cardiovascular: Normal Peripheral Pulses, Regular Rate, Rhythm, No Murmur GI/Abdominal: Normal Bowel Sounds, Soft, Non-Tender Neuro Exam (Abbreviated): Alert, Oriented, CN II-XII Intact, Normal Cognition, Normal Gait, No Motor/Sensory Deficits Back Exam: Normal Inspection, Full Range of Motion Extremities: Normal Inspection, Normal Range of Motion, Non-Tender Psychiatric: Normal Affect, Normal Mood Skin Exam: Warm, Dry, Intact, Normal Color Course - Vital Signs Last Recorded V/S: Last Vital Signs Temp 97.4 F 01/07/18 18:29 Pulse 91 01/07/18 18:29 Resp 20 01/07/18 18:29 BP 136/86 01/07/18 18:29 Pulse Ox 99 01/07/18 18:29 Orthostatic Blood Pressure [ 111/82 Standing] Orthostatic Blood Pressure [ 114/64 Sitting] Orthostatic Blood Pressure [ 105/61 Supine] - Orders/Labs/Meds Orders: Active Orders 24 hr Category Date Time Status Orthostatic Vital Signs [RC] ASDIRECTED Care 01/07/18 19:10 Active Meds: Medications Discontinued Medications Generic Name Dose Route Start Last Admin Trade Name Delvinq PRN Reason Stop Dose Admin Acetaminophen 975 mg 01/07/18 19:11 01/07/18 19:18 Tylenol PO 01/07/18 19:12 975 mg ONETIME ONE Administration - Re-Assessments/Exams Free Text/Narrative Re-Assessment/Exam: Patient has recent history of receiving blood patch on 2 separate occasions over the past 3 weeks. She has seen a neurosurgeon/pain specialists at the [facility] who is performing a blood patch since she has a small fragment of bone protruding into the spine causing the spinal headaches and nausea. She has a blood patch scheduled this coming Tuesday. The pain specialists is Dr. Reji Carroll. Headache patient's currently experiencing is no different than previous headaches. His chronic unchanged right-sided with some photophobia and intermittent ringing of the ears. She does have some intermittent blurred vision at times. She's taken no medications as of recent. She took Tylenol yesterday with some change. In addition took Motrin 200 mg yesterday as well with no change. She's been using ice and landing flat which actually helps. She is chronically nauseated since . She's had a few episodes of dry heaving. Her appetite has been okay. She's been drinking plenty of fluids and does not feel dehydrated. Of note she also has some intermittent dizziness associated with the headache again this is chronic. Patient has not been experiencing any new symptoms. She is wondering if there is any additional options to manage the headache. I advised we can potentially try some narcotic pain medications to which she refused. Otherwise she can take Tylenol which may help the discomfort. Blood patch is the best option. I have ordered Tylenol 975 mg by mouth in liquid form. Orthostatic vitals will be obtained. Heart tones were 165. Orthostatic vitals were negative. Patient had no symptoms with body position changes. Will discharge patient home with instructions as documented.The patient remained hemodynamically stable while under my care in the E.D. I discussed the concerning symptoms for which to return to the E.D. with the patient. The patient verbalized understanding. All questions were answered. 01/07/18 20:45 Departure - Departure Time of Disposition: 19:30 Disposition: Home, Self-Care 01 Condition: Good Clinical Impression: Headache Qualifiers: Headache type: unspecified Headache chronicity pattern: chronic headache Intractability: not intractable Qualified Code(s): R51 - Headache - Discharge Information Instructions: General Headache Without Cause, [id number] Referrals: PCP,Not In Area [Primary Care Provider] - Forms: ED Department Discharge Additional Instructions: Keep pushing the fluids. Utilize ice and laying flat to alleviate the headache. Take Tylenol 650 mg every 4-6 hours as needed for headache. Keep appointment with Dr. Coelho scheduled for this Tuesday for blood patch and baclofen pump placement. Refrain from taking Motrin while . Please return back to ED if he developed any new or worsening symptoms. - My Orders Last 24 Hours: My Active Orders 01/07/18 19:10 Orthostatic Vital Signs [RC] ASDIRECTED - Assessment/Plan Last 24 Hours: My Active Orders 01/07/18 19:10 Orthostatic Vital Signs [RC] ASDIRECTED
== END 2018-01-07 19:38 | disposition home or self-care (01) ==
LOC: JD.ED 18:16
DX: O99.89 Other specified diseases and conditions complicating pregnancy, childbirth and the puerperium (principal); R51 Headache; G89.29 Other chronic pain; O99.333 Smoking (tobacco) complicating pregnancy, third trimester; F17.210 Nicotine dependence, cigarettes, uncomplicated; O99.213 Obesity complicating pregnancy, third trimester; E66.9 Obesity, unspecified; Z3A.24 24 weeks gestation of pregnancy
CPT/HCPCS: 99284; A9270

== ENCOUNTER 2018-01-22 15:48 | Emergency (ER) | payer SELFPAY ==
[2018-01-22 16:01] VITALS: BP 105/65
[2018-01-22] MEDS ORDERED: Morphine 10 MG/ML Syringe IM ONE (16:30)
[2018-01-22] MEDS ORDERED: Morphine 4 MG/ML Syringe ONE (16:36)
--- NOTE | 2018-01-22 16:55 | EDM.PDOC ---
ED HPI GENERAL MEDICAL PROBLEM - General Chief Complaint: Back Pain or Injury Stated Complaint: FEELING PAIN IN SPINE Time Seen by Provider: 01/22/18 16:05 Source of Information: Reports: Patient History Limitations: Reports: No Limitations - History of Present Illness INITIAL COMMENTS - FREE TEXT/NARRATIVE: The patient presents with low back pain. This has been an ongoing problem. She is 24 weeks . She has been seen at the [facility] and on Tuesday they will be doing an interthecal morphine and baclofen pump. She has been dealing with the pain for months and the pain is worse. She has no numbness or weakness down her legs. She has no bowel or bladder problems. She has no fever , chills, cough, or chest pain. She has some cramping at times but no bleeding or spotting. She also has a spinal headache and she says that is related to what is going on in her back. Onset: Gradual Duration: Week(s): Location: Reports: Back Quality: Reports: Sharp Severity: Severe Improves with: Reports: Immobilization Worsens with: Reports: Movement Associated Symptoms: Reports: Headaches. Denies: Chest Pain, Fever/Chills, Nausea/Vomiting, Shortness of Breath Middle Back Pain Score (Numeric/FACES): 10 - Related Data Allergies Allergy/AdvReac Type Severity Reaction Status Date / Time latex Allergy Swollen Verified 11/17/17 22:28 Tongue promethazine HCl AdvReac Mild Anxiety Verified 11/17/17 22:28 [From Phenergan] metoclopramide HCl AdvReac Anxiety Verified 11/17/17 22:28 [From Reglan] Home Meds: Home Meds Doxylamine/Pyridoxine HCl [Judds Dr 10-10 mg Tablet] 1 tab PO Q4H PRN [History] Ondansetron [Zofran ODT] 4 mg PO Q8H PRN 4 Days #12 tab.dis 11/13/17 [Rx] Aller Xt-Tree Pollen-Melaleuca [Melaleuca] 1 tab PO DAILY 01/07/18 [History] Past Medical History HEENT History: Reports: Impaired Vision Respiratory History: Reports: Pneumonia, Recurrent Gastrointestinal History: Reports: Other (See Below) Other Gastrointestinal History: pernicious anemia, hyperemesis. 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 Endocrine/Metabolic History: Reports: Obesity/BMI 30+ Hematologic History: Reports: Anemia Other Hematologic History: pernicoius anemia Oncologic (Cancer) History: Reports: None - Infectious Disease History Infectious Disease History: Reports: Chicken Pox - Past Surgical History Female Surgical History: Reports: Tubal Ligation Social & Family History - Family History Family Medical History: Noncontributory - Tobacco Use Smoking Status *Q: Current Every Day Smoker Years of Tobacco use: 19 Packs/Tins Daily: 0.5 - Caffeine Use Caffeine Use: Reports: None - Recreational Drug Use Recreational Drug Use: No - Living Situation & Occupation Living situation: Reports: , with Spouse Occupation: Unemployed ED ROS GENERAL - Review of Systems Review Of Systems: See Below Constitutional: Reports: No Symptoms HEENT: Reports: No Symptoms Respiratory: Reports: No Symptoms Cardiovascular: Reports: No Symptoms Endocrine: Reports: No Symptoms GI/Abdominal: Reports: No Symptoms : Reports: No Symptoms Musculoskeletal: Reports: Back Pain Skin: Reports: No Symptoms Neurological: Reports: Headache ED EXAM,LOWER BACK PAIN/INJURY - Physical Exam Exam: See Below Exam Limited By: No Limitations General Appearance: Alert, No Apparent Distress Ears: Normal External Exam Nose: Normal Inspection Head: Atraumatic, Normocephalic Neck: Normal Inspection Respiratory/Chest: No Respiratory Distress, Lungs Clear, Normal Breath Sounds Cardiovascular: Regular Rate, Rhythm, No Edema, No Murmur GI/Abdominal: Soft, Non-Tender, Other (Gravid uterus) Back Exam: Vertebral Tenderness Course - Vital Signs Last Recorded V/S: Last Vital Signs Temp 98.2 F 01/22/18 15:59 Pulse 80 01/22/18 15:59 Resp 20 01/22/18 15:59 BP 105/65 01/22/18 15:59 Pulse Ox 99 01/22/18 15:59 - Orders/Labs/Meds Meds: Medications Discontinued Medications Generic Name Dose Route Start Last Admin Trade Name Freq PRN Reason Stop Dose Admin Morphine Sulfate 8 mg 01/22/18 16:30 01/22/18 16:43 Morphine IM 01/22/18 16:31 Not Given ONETIME ONE Morphine Sulfate Confirm 01/22/18 16:36 01/22/18 16:42 Morphine Administered 01/22/18 16:37 8 mg Dose Administration 8 mg .ROUTE .STK-MED ONE - Re-Assessments/Exams Free Text/Narrative Re-Assessment/Exam: 01/22/18 16:55 I ordered morphine 8mg IM. Departure - Departure Time of Disposition: 17:00 Disposition: Home, Self-Care 01 Condition: Good Clinical Impression: Low back pain Qualifiers: Chronicity: chronic Back pain laterality: bilateral Sciatica presence: without sciatica Qualified Code(s): M54.5 - Low back pain; G89.29 - Other chronic pain Headache Qualifiers: Headache type: unspecified Headache chronicity pattern: chronic headache Intractability: not intractable Qualified Code(s): R51 - Headache Qualifiers: Weeks of gestation: 24 weeks Qualified Code(s): Z3A.24 - 24 weeks gestation of - Discharge Information *PRESCRIPTION DRUG MONITORING PROGRAM REVIEWED*: No *COPY OF PRESCRIPTION DRUG MONITORING REPORT IN PATIENT DEE: No Referrals: Otf Womack MD [Primary Care Provider] - Additional Instructions: Follow up with [facility] on Tuesday. Please return if you are worse.
== END 2018-01-22 17:05 | disposition home or self-care (01) ==
LOC: JD.ED 15:48 → SUPCPDRO 15:48 → JD.ED 17:05
DX: O99.89 Other specified diseases and conditions complicating pregnancy, childbirth and the puerperium (principal); M54.5 Low back pain; R51 Headache; Z3A.24 24 weeks gestation of pregnancy; O99.332 Smoking (tobacco) complicating pregnancy, second trimester; F17.210 Nicotine dependence, cigarettes, uncomplicated; Z79.899 Other long term (current) drug therapy; Z91.040 Latex allergy status; Z88.8 Allergy status to other drugs, medicaments and biological substances
CPT/HCPCS: 96372; 99283; J2270; 99284

== ENCOUNTER 2018-02-09 17:13 | Emergency (ER) | payer SELFPAY ==
[2018-02-09 17:35] VITALS: BP 134/76
[2018-02-09] MEDS ORDERED: Morphine 10 MG/ML Syringe IM ONE (17:59)
--- NOTE | 2018-02-09 18:01 | EDM.PDOC ---
ED HPI GENERAL MEDICAL PROBLEM - General Chief Complaint: Headache Stated Complaint: BACK PAIN NOT ASSOCIATED WITH (27 WEEKS) Time Seen by Provider: 02/09/18 17:36 Source of Information: Reports: Patient History Limitations: Reports: No Limitations - History of Present Illness INITIAL COMMENTS - FREE TEXT/NARRATIVE: The patient is 27 weeks gestation and she presents with chronic back pain and headache. The headache was made wore by helping move a cough. She has no weakness but she did have some numbness in her legs. She has headaches from spinal fluid leak. She was going to [place] to have a baclofen pump but they reschedules. Onset: Gradual Duration: Day(s): Location: Reports: Head, Back Quality: Reports: Sharp Severity: Severe Improves with: Reports: None Worsens with: Reports: None Associated Symptoms: Reports: Headaches. Denies: Fever/Chills, Nausea/Vomiting , Shortness of Breath Headache Pain Score (Numeric/FACES): 10 - Related Data Allergies Allergy/AdvReac Type Severity Reaction Status Date / Time latex Allergy Swollen Verified 02/09/18 17:27 Tongue promethazine HCl AdvReac Mild Anxiety Verified 02/09/18 17:27 [From Phenergan] metoclopramide HCl AdvReac Anxiety Verified 02/09/18 17:27 [From Reglan] Home Meds: Home Meds Ondansetron [Zofran ODT] 4 mg PO Q8H PRN 4 Days #12 tab.dis 11/13/17 [Rx] Vit W-Ca,Fe,FA(<1 mg) [ Vitamins] 1 tab PO BID 02/09/18 [ History] Past Medical History HEENT History: Reports: Impaired Vision Respiratory History: Reports: Pneumonia, Recurrent Gastrointestinal History: Reports: Other (See Below) Other Gastrointestinal History: pernicious anemia, hyperemesis. 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 Endocrine/Metabolic History: Reports: Obesity/BMI 30+ Hematologic History: Reports: Anemia Other Hematologic History: pernicoius anemia Oncologic (Cancer) History: Reports: None - Infectious Disease History Infectious Disease History: Reports: Chicken Pox - Past Surgical History Female Surgical History: Reports: Tubal Ligation Social & Family History - Family History Family Medical History: Noncontributory - Tobacco Use Smoking Status *Q: Current Every Day Smoker Years of Tobacco use: 19 Packs/Tins Daily: 1 - Caffeine Use Caffeine Use: Reports: None - Recreational Drug Use Recreational Drug Use: No - Living Situation & Occupation Living situation: Reports: , with Spouse Occupation: Unemployed ED ROS GENERAL - Review of Systems Review Of Systems: See Below Constitutional: Reports: No Symptoms HEENT: Reports: No Symptoms Respiratory: Reports: No Symptoms Cardiovascular: Reports: No Symptoms Endocrine: Reports: No Symptoms GI/Abdominal: Reports: No Symptoms : Reports: No Symptoms Musculoskeletal: Reports: No Symptoms Skin: Reports: No Symptoms Neurological: Reports: Headache - Physical Exam Exam: See Below Exam Limited By: No Limitations General Appearance: Alert, No Apparent Distress Ears: Normal External Exam Nose: Normal Inspection Head Exam: Atraumatic, Normocephalic Neck: Normal Inspection Respiratory/Chest: No Respiratory Distress, Lungs Clear, Normal Breath Sounds Cardiovascular: Regular Rate, Rhythm, No Edema, No Murmur GI/Abdominal: Soft, Non-Tender, Other (Gravid uterus) Neuro Exam (Abbreviated): Alert, Oriented, No Motor/Sensory Deficits Course - Vital Signs Last Recorded V/S: Last Vital Signs Temp 97.1 F 02/09/18 17:32 Pulse 87 02/09/18 17:32 Resp 16 02/09/18 17:32 BP 134/76 02/09/18 17:32 Pulse Ox 100 02/09/18 17:32 - Re-Assessments/Exams Free Text/Narrative Re-Assessment/Exam: 02/09/18 18:00 I ordered a shot of morphine 8mg IM and I will discharge her home. Departure - Departure Time of Disposition: 18:00 Disposition: Home, Self-Care 01 Condition: Good Clinical Impression: Headache Qualifiers: Headache type: unspecified Headache chronicity pattern: chronic headache Intractability: not intractable Qualified Code(s): R51 - Headache Qualifiers: Weeks of gestation: 24 weeks Qualified Code(s): Z3A.24 - 24 weeks gestation of Chronic low back pain Qualifiers: Back pain laterality: bilateral Sciatica presence: without sciatica Qualified Code(s): M54.5 - Low back pain - Discharge Information *PRESCRIPTION DRUG MONITORING PROGRAM REVIEWED*: No *COPY OF PRESCRIPTION DRUG MONITORING REPORT IN PATIENT DEE: No Referrals: Otf Womack MD [Primary Care Provider] - Additional Instructions: Please return if you are worse.
[2018-02-09] MEDS ORDERED: Morphine 4 MG/ML Syringe IM ONE (18:14)
== END 2018-02-09 18:23 | disposition home or self-care (01) ==
LOC: JD.ED 17:13
DX: O99.89 Other specified diseases and conditions complicating pregnancy, childbirth and the puerperium (principal); R51 Headache; M54.5 Low back pain; F17.210 Nicotine dependence, cigarettes, uncomplicated; Z87.01 Personal history of pneumonia (recurrent); Z91.040 Latex allergy status; Z88.8 Allergy status to other drugs, medicaments and biological substances; Z79.899 Other long term (current) drug therapy; Z3A.24 24 weeks gestation of pregnancy
CPT/HCPCS: 96372; 99283; J2270

== ENCOUNTER 2018-02-12 20:24 | Emergency (ER) | payer SELFPAY ==
[2018-02-12 20:39] VITALS: BP 136/78
--- NOTE | 2018-02-12 21:33 | EDM.PDOC ---
ED HPI GENERAL MEDICAL PROBLEM - General Chief Complaint: Lower Extremity Injury/Pain Stated Complaint: POSS BLOOD CLOT IN LEG Time Seen by Provider: 02/12/18 20:29 Source of Information: Reports: Patient History Limitations: Reports: No Limitations - History of Present Illness INITIAL COMMENTS - FREE TEXT/NARRATIVE: Pt is a 37 yo F that is 26weeks that comes in today as she suspects she may have a DVT/PE after speaking with a family member that is a nurse. She had a "knot" in her right leg this morning that hurt and was warm to the touch and she felt her leg had become warm and red. Then while walking around health system she became light headed and short of breath, with pleuritic CP in the right lower chest. She states she has a history of a "broken back" and was told to "watch out for things like this as you're at an increased risk for blood clots" . She states her leg hurts while walking, but has since improved and is no longer red and the "knot" has gone away. She states she feels maybe she just "pulled a muscle". Resting has made her feel better. She also states she has had chest pain like this before "usually before I get PNA" and she usually gets PNA "at least twice per year". She also states she is a smoker, and she smokes 3 cigarettes per day currently but is down from 3 ppd and is trying to quit. No other complaints at this time. Right Upper Leg Pain Score (Numeric/FACES): 6 - Related Data Allergies Allergy/AdvReac Type Severity Reaction Status Date / Time latex Allergy Swollen Verified 02/09/18 17:27 Tongue promethazine HCl AdvReac Mild Anxiety Verified 02/09/18 17:27 [From Phenergan] metoclopramide HCl AdvReac Anxiety Verified 02/09/18 17:27 [From Reglan] Home Meds: Home Meds Ondansetron [Zofran ODT] 4 mg PO Q8H PRN 4 Days #12 tab.dis 11/13/17 [Rx] Vit W-Ca,Fe,FA(<1 mg) [ Vitamins] 1 tab PO BID 02/09/18 [ History] Past Medical History HEENT History: Reports: Impaired Vision Respiratory History: Reports: Pneumonia, Recurrent Gastrointestinal History: Reports: Other (See Below) Other Gastrointestinal History: pernicious anemia, hyperemesis. 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 Endocrine/Metabolic History: Reports: Obesity/BMI 30+ Hematologic History: Reports: Anemia Other Hematologic History: pernicoius anemia Oncologic (Cancer) History: Reports: None - Infectious Disease History Infectious Disease History: Reports: Chicken Pox - Past Surgical History Female Surgical History: Reports: Tubal Ligation Social & Family History - Family History Family Medical History: Noncontributory - Tobacco Use Smoking Status *Q: Current Every Day Smoker Years of Tobacco use: 20 Packs/Tins Daily: 0.3 - Caffeine Use Caffeine Use: Reports: Soda - Recreational Drug Use Recreational Drug Use: No - Living Situation & Occupation Living situation: Reports: , with Spouse Occupation: Unemployed Review of Systems - Review of Systems Review Of Systems: ROS reveals no pertinent complaints other than HPI. ED EXAM, GENERAL - Physical Exam Exam: See Below Exam Limited By: No Limitations General Appearance: Alert, WD/WN, No Apparent Distress, Anxious Eye Exam: Bilateral Eye: EOMI, Normal Inspection, PERRL Head: Atraumatic, Normocephalic Neck: Normal Inspection, Supple, Non-Tender, Full Range of Motion Respiratory/Chest: No Respiratory Distress, Lungs Clear, Normal Breath Sounds, No Accessory Muscle Use, Chest Non-Tender Cardiovascular: Normal Peripheral Pulses, Regular Rate, Rhythm, No Edema, No Gallop, No JVD, No Murmur, No Rub, Tachycardia Peripheral Pulses: 4+: Posterior Tibial (L), Posterior Tibial (R), Dorsalis Pedis (L), Dorsalis Pedis (R) Extremities: Normal Inspection, Normal Range of Motion, Non-Tender, No Pedal Edema, Normal Capillary Refill. No: Sarah's Sign, Leg Pain, Increased Warmth, Redness Neurological: Alert, Oriented, CN II-XII Intact, Normal Cognition, Normal Gait, Normal Reflexes, No Motor/Sensory Deficits Psychiatric: Normal Affect, Normal Mood Skin Exam: Warm, Dry, Intact, Normal Color, No Rash Course - Vital Signs Last Recorded V/S: Last Vital Signs Temp 97.8 F 02/12/18 20:36 Pulse 93 02/12/18 20:36 Resp 20 02/12/18 20:36 BP 136/78 02/12/18 20:36 Pulse Ox 100 02/12/18 20:36 - Radiology Interpretation Free Text/Narrative:: Went in to see patient. Exam was overall benign. No respiratory distress, no pain or "knot" in the leg, no increased warmth or erythema to the leg, no pain behind the knee or to the calf. She states she feels better now but that she sometimes has pleuritic chest pain when she breathes deeply. States she has had this type of pain before, usually before getting PNA. She also mentions she is a current smoker, 3 cigarettes per day, but is trying to cut back. I did discuss with her that she should not be smoking at all during . Lungs are clear to auscultation today. O2 sat 100% on RA. After telling her that her exam and vital signs were WNL, she felt much better. She also stated she felt the her leg pain may have just been a pulled muscle and feels better now. I offered to continue to do a workup for DVT/PE with an ultrasound and blood work , but she stated "I was told to come here by a nurse in my family but I think I' m fine". I told her it's her decision if she wants the workup and she stated she is OK not having it and "doesn't want to waste our time". I told her that she's not wasting our time, but I explained to her that if she does feel concerned and her symptoms worsen, she should return here or to the clinic within 1-2 days. States she already has a doctor's appointment set up for tomorrow. Departure - Departure Time of Disposition: 21:43 Disposition: Home, Self-Care 01 Condition: Fair Clinical Impression: 26 weeks gestation of , Shortness of breath, Leg pain - Discharge Information *PRESCRIPTION DRUG MONITORING PROGRAM REVIEWED*: Not Applicable *COPY OF PRESCRIPTION DRUG MONITORING REPORT IN PATIENT DEE: Not Applicable Instructions: Shortness of Breath, Adult, [id number], Muscle Pain, Adult Referrals: Otf Womack MD [Primary Care Provider] - Forms: ED Department Discharge Additional Instructions: You were seen in the ED today for evaluation for Shortness of breath/leg pain with possible DVT/PE. Your exam was overall benign. No respiratory distress, no pain or "knot" in the leg, no increased warmth or erythema to the leg, Lungs are clear to auscultation today, O2 sat 100% on Room Air. After the exam you seemed to feel relief and did not want to continue workup for DVT/PE. We discussed that the leg pain could have been musculoskeletal in nature and that a lot of these symptoms may be related to smoking and side effects of . However, if you feel concerned and your symptoms worsen, please return here or to the clinic within 1-2 days. Keep your doctor's appointment for tomorrow.
== END 2018-02-12 22:08 | disposition home or self-care (01) ==
LOC: JD.ED 20:24
DX: O99.89 Other specified diseases and conditions complicating pregnancy, childbirth and the puerperium (principal); M79.604 Pain in right leg; R06.02 Shortness of breath; O99.332 Smoking (tobacco) complicating pregnancy, second trimester; F17.210 Nicotine dependence, cigarettes, uncomplicated; Z3A.26 26 weeks gestation of pregnancy; Z91.040 Latex allergy status; Z88.8 Allergy status to other drugs, medicaments and biological substances; Z87.01 Personal history of pneumonia (recurrent)
CPT/HCPCS: 99283

== ENCOUNTER 2018-02-23 00:26 | Emergency (ER) | payer MEDICAID ==
[2018-02-23 00:54] VITALS: BP 133/76
[2018-02-23] MEDS ORDERED: HYDROmorphone 1 MG/ML Syringe IM ONE (01:04)
[2018-02-23] MEDS ORDERED: Ondansetron 4 MG Tab.DIS PO ONE (01:04)
--- NOTE | 2018-02-23 01:09 | EDM.PDOC ---
ED HPI GENERAL MEDICAL PROBLEM - General Chief Complaint: Back Pain or Injury Stated Complaint: BACK PAIN Time Seen by Provider: 02/23/18 00:51 Source of Information: Reports: Patient History Limitations: Reports: No Limitations - History of Present Illness INITIAL COMMENTS - FREE TEXT/NARRATIVE: The patient is 29 weeks gestation. She presents with chronic low back pain that is made worse by the . She says the pain is getting worse. She has numbness at times in her legs. She has an appointment at [facility] February 28. She says the baby is still moving and doing good. Onset: Gradual Duration: Week(s): Location: Reports: Back Quality: Reports: Sharp Severity: Severe Improves with: Reports: Immobilization Worsens with: Reports: Movement Associated Symptoms: Reports: No Other Symptoms Lower Back Pain Score (Numeric/FACES): 10 - Related Data Allergies Allergy/AdvReac Type Severity Reaction Status Date / Time latex Allergy Swollen Verified 02/09/18 17:27 Tongue promethazine HCl AdvReac Mild Anxiety Verified 02/09/18 17:27 [From Phenergan] metoclopramide HCl AdvReac Anxiety Verified 02/09/18 17:27 [From Reglan] Home Meds: Home Meds Ondansetron [Zofran ODT] 4 mg PO Q8H PRN 4 Days #12 tab.dis 11/13/17 [Rx] Vit W-Ca,Fe,FA(<1 mg) [ Vitamins] 1 tab PO BID 02/09/18 [ History] Past Medical History HEENT History: Reports: Impaired Vision Respiratory History: Reports: Pneumonia, Recurrent Gastrointestinal History: Reports: Other (See Below) Other Gastrointestinal History: pernicious anemia, hyperemesis. 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 Endocrine/Metabolic History: Reports: Obesity/BMI 30+ Hematologic History: Reports: Anemia Other Hematologic History: pernicoius anemia Oncologic (Cancer) History: Reports: None - Infectious Disease History Infectious Disease History: Reports: Chicken Pox - Past Surgical History Female Surgical History: Reports: Tubal Ligation Social & Family History - Family History Family Medical History: Noncontributory - Tobacco Use Smoking Status *Q: Current Every Day Smoker Years of Tobacco use: 19 Packs/Tins Daily: 1 - Caffeine Use Caffeine Use: Reports: None - Recreational Drug Use Recreational Drug Use: No - Living Situation & Occupation Living situation: Reports: , with Spouse Occupation: Unemployed ED ROS GENERAL - Review of Systems Review Of Systems: See Below Constitutional: Reports: No Symptoms HEENT: Reports: No Symptoms Respiratory: Reports: No Symptoms Cardiovascular: Reports: No Symptoms Endocrine: Reports: No Symptoms GI/Abdominal: Reports: Nausea : Reports: No Symptoms Musculoskeletal: Reports: Back Pain ED EXAM,LOWER BACK PAIN/INJURY - Physical Exam Exam: See Below Exam Limited By: No Limitations General Appearance: Alert, No Apparent Distress Ears: Normal External Exam Nose: Normal Inspection Head: Atraumatic, Normocephalic Neck: Normal Inspection Respiratory/Chest: No Respiratory Distress, Lungs Clear, Normal Breath Sounds Cardiovascular: Regular Rate, Rhythm, No Edema, No Murmur GI/Abdominal: Soft, Non-Tender, Other (Gravid uterus) Course - Vital Signs Last Recorded V/S: Last Vital Signs Temp 98.7 F 02/23/18 00:50 Pulse 89 02/23/18 00:50 Resp 16 02/23/18 00:50 BP 133/76 02/23/18 00:50 Pulse Ox 98 02/23/18 00:50 - Orders/Labs/Meds Orders: Active Orders 24 hr Category Date Time Status HYDROmorphone [Dilaudid] Med 02/23/18 01:04 Once 1 mg IM ONETIME ONE Ondansetron [Zofran ODT] Med 02/23/18 01:04 Once 4 mg PO ONETIME ONE - Re-Assessments/Exams Free Text/Narrative Re-Assessment/Exam: 02/23/18 01:07 I ordered a shot of dilaudid 1mg IM and zofran 4mg by mouth. Departure - Departure Time of Disposition: 01:10 Disposition: Home, Self-Care 01 Condition: Good Clinical Impression: Qualifiers: Weeks of gestation: 29 weeks Qualified Code(s): Z3A.29 - 29 weeks gestation of Back pain Qualifiers: Back pain location: low back pain Chronicity: chronic Back pain laterality: bilateral Sciatica presence: without sciatica Qualified Code(s): M54.5 - Low back pain; G89.29 - Other chronic pain - Discharge Information *PRESCRIPTION DRUG MONITORING PROGRAM REVIEWED*: No *COPY OF PRESCRIPTION DRUG MONITORING REPORT IN PATIENT DEE: No Referrals: Otf Womack MD [Primary Care Provider] - 1 Week Additional Instructions: Go home and try to rest. Keep your appointment on the . Please return if you are worse. - My Orders Last 24 Hours: My Active Orders 02/23/18 01:04 HYDROmorphone [Dilaudid] 1 mg IM ONETIME ONE Ondansetron [Zofran ODT] 4 mg PO ONETIME ONE - Assessment/Plan Last 24 Hours: My Active Orders 02/23/18 01:04 HYDROmorphone [Dilaudid] 1 mg IM ONETIME ONE Ondansetron [Zofran ODT] 4 mg PO ONETIME ONE
== END 2018-02-23 01:14 | disposition home or self-care (01) ==
LOC: JD.ED 00:26 → JD.OBCHECK 00:26 → EDSTATUS 00:38 → JD.ED 01:14
DX: O99.89 Other specified diseases and conditions complicating pregnancy, childbirth and the puerperium (principal); M54.5 Low back pain; G89.29 Other chronic pain; O99.333 Smoking (tobacco) complicating pregnancy, third trimester; F17.210 Nicotine dependence, cigarettes, uncomplicated; Z91.040 Latex allergy status; Z88.8 Allergy status to other drugs, medicaments and biological substances; Z3A.29 29 weeks gestation of pregnancy
CPT/HCPCS: 96372; 99282; A9270; J1170

== ENCOUNTER 2018-02-24 15:09 | Emergency (ER) | payer MEDICAID ==
[2018-02-24 15:22] VITALS: BP 119/81
[2018-02-24] MEDS ORDERED: Ondansetron 4 MG/2 ML SDV IVPUSH ONE (15:38)
[2018-02-24] MEDS ORDERED: HYDROmorphone 1 MG/ML Syringe IVPUSH ONE (15:39)
[2018-02-24] MEDS ORDERED: Sodium Chloride 0.9% 10 ML Syringe FLUSH PRN (15:39)
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
== END 2018-02-24 16:39 | disposition home or self-care (01) ==
LOC: JD.ED 15:09
DX: O99.89 Other specified diseases and conditions complicating pregnancy, childbirth and the puerperium (principal); M54.5 Low back pain; O99.332 Smoking (tobacco) complicating pregnancy, second trimester; F17.210 Nicotine dependence, cigarettes, uncomplicated; Z3A.26 26 weeks gestation of pregnancy; Z79.899 Other long term (current) drug therapy
CPT/HCPCS: 96374; 96375; 99283; J1170; J2405; J7050

== ENCOUNTER 2018-02-25 21:57 | Emergency (ER) | payer MEDICAID ==
[2018-02-25 22:18] VITALS: BP 119/74
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
[2018-02-25] MEDS ORDERED: HYDROmorphone 1 MG/ML Syringe IM ONE (23:12)
[2018-02-25] MEDS ORDERED: Ondansetron 4 MG/2 ML SDV IM ONE (23:13)
== END 2018-02-25 23:57 | disposition home or self-care (01) ==
LOC: JD.ED 21:57
DX: G89.29 Other chronic pain (principal); M54.6 Pain in thoracic spine; F17.210 Nicotine dependence, cigarettes, uncomplicated; Z91.040 Latex allergy status; Z88.8 Allergy status to other drugs, medicaments and biological substances
CPT/HCPCS: 96372; 99283; J1170; J2405; 99284

== ENCOUNTER 2018-02-27 15:48 | Emergency (ER) | payer MEDICAID ==
[2018-02-27 16:24] VITALS: BP 101/67
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
== END 2018-02-27 18:28 | disposition home or self-care (01) ==
LOC: JD.ED 15:48
DX: O99.89 Other specified diseases and conditions complicating pregnancy, childbirth and the puerperium (principal); R29.898 Other symptoms and signs involving the musculoskeletal system; O99.333 Smoking (tobacco) complicating pregnancy, third trimester; F17.210 Nicotine dependence, cigarettes, uncomplicated; O99.213 Obesity complicating pregnancy, third trimester; Z91.040 Latex allergy status; Z88.8 Allergy status to other drugs, medicaments and biological substances; Z3A.30 30 weeks gestation of pregnancy
CPT/HCPCS: 99283

== ENCOUNTER 2018-03-05 20:29 | Emergency (ER) | payer MEDICAID ==
[2018-03-05 20:53] VITALS: BP 125/83
[2018-03-05] MEDS ORDERED: Ondansetron 4 MG Tab.DIS PO ONE (21:23)
[2018-03-05] MEDS ORDERED: HYDROmorphone 1 MG/ML Syringe IM ONE (21:23)
--- NOTE | 2018-03-05 21:38 | EDM.PDOC ---
ED HPI GENERAL MEDICAL PROBLEM - General Chief Complaint: Back Pain or Injury Stated Complaint: LEG NUMBNESS AND BACK PAIN Time Seen by Provider: 03/05/18 20:54 Source of Information: Reports: Patient History Limitations: Reports: No Limitations - History of Present Illness INITIAL COMMENTS - FREE TEXT/NARRATIVE: The patient presents with chronic low back pain. She is 32 weeks gestation. She went over to OB and they checked her out and she is not in labor. She was not able to go to her [place] appointment on the 2nd due to issues with her son. She is not sure when they will put the pump in her back. She gets numbness and weakness in her legs at times. She has trouble getting out of bed in the morning. Onset: Gradual Duration: Week(s): Location: Reports: Back Quality: Reports: Sharp Severity: Severe Improves with: Reports: Immobilization Worsens with: Reports: Movement Associated Symptoms: Reports: No Other Symptoms Back Pain Score (Numeric/FACES): 10 - Related Data Allergies Allergy/AdvReac Type Severity Reaction Status Date / Time latex Allergy Swollen Verified 02/27/18 16:18 Tongue promethazine HCl AdvReac Mild Anxiety Verified 02/27/18 16:18 [From Phenergan] metoclopramide HCl AdvReac Anxiety Verified 02/27/18 16:18 [From Reglan] Home Meds: Home Meds Ondansetron [Zofran ODT] 4 mg PO Q8H PRN 4 Days #12 tab.dis 11/13/17 [Rx] Vit W-Ca,Fe,FA(<1 mg) [ Vitamins] 1 tab PO BID 02/09/18 [ History] Past Medical History HEENT History: Reports: Impaired Vision Respiratory History: Reports: Pneumonia, Recurrent Gastrointestinal History: Reports: Other (See Below) Other Gastrointestinal History: pernicious anemia, hyperemesis. 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 Endocrine/Metabolic History: Reports: Obesity/BMI 30+ Hematologic History: Reports: Anemia Other Hematologic History: pernicoius anemia Oncologic (Cancer) History: Reports: None - Infectious Disease History Infectious Disease History: Reports: Chicken Pox - Past Surgical History Female Surgical History: Reports: Tubal Ligation Musculoskeletal Surgical History: Reports: Other (See Below) Social & Family History - Family History Family Medical History: Noncontributory - Tobacco Use Smoking Status *Q: Current Every Day Smoker Years of Tobacco use: 19 Packs/Tins Daily: 0.5 - Caffeine Use Caffeine Use: Reports: Soda - Recreational Drug Use Recreational Drug Use: No - Living Situation & Occupation Living situation: Reports: , with Spouse, with Family (Son) Occupation: Unemployed ED ROS GENERAL - Review of Systems Review Of Systems: See Below Constitutional: Reports: No Symptoms HEENT: Reports: No Symptoms Respiratory: Reports: No Symptoms Cardiovascular: Reports: No Symptoms Endocrine: Reports: No Symptoms GI/Abdominal: Reports: No Symptoms Musculoskeletal: Reports: Back Pain ED EXAM,LOWER BACK PAIN/INJURY - Physical Exam Exam: See Below Exam Limited By: No Limitations General Appearance: Alert, No Apparent Distress Ears: Normal External Exam Nose: Normal Inspection Head: Atraumatic, Normocephalic Neck: Normal Inspection Respiratory/Chest: No Respiratory Distress, Lungs Clear, Normal Breath Sounds Cardiovascular: Regular Rate, Rhythm, No Edema, No Murmur GI/Abdominal: Soft, Non-Tender, No Organomegaly, No Mass Back Exam: Vertebral Tenderness (Lower lumbar) Extremities: Normal Inspection Neurological: Alert, No Motor/Sensory Deficits, Oriented x 3 Course - Vital Signs Last Recorded V/S: Last Vital Signs Temp 97.8 F 03/05/18 20:52 Pulse 79 03/05/18 20:52 Resp 20 03/05/18 20:52 BP 125/83 03/05/18 20:52 Pulse Ox 98 03/05/18 20:52 - Orders/Labs/Meds Meds: Medications Discontinued Medications Generic Name Dose Route Start Last Admin Trade Name Freq PRN Reason Stop Dose Admin Hydromorphone HCl 1.5 mg 03/05/18 21:23 Dilaudid IM 03/05/18 21:24 ONETIME ONE Ondansetron HCl 4 mg 03/05/18 21:23 Zofran Odt PO 03/05/18 21:24 ONETIME ONE - Re-Assessments/Exams Free Text/Narrative Re-Assessment/Exam: 03/05/18 21:36 I ordered a shot of dilaudid 1.5mg IM and zofran 4mg ODT. I will discharge her home Departure - Departure Time of Disposition: 21:40 Disposition: Home, Self-Care 01 Condition: Good Clinical Impression: Back pain Qualifiers: Back pain location: low back pain Chronicity: acute Back pain laterality: bilateral Sciatica presence: without sciatica Qualified Code(s): M54.5 - Low back pain - Discharge Information *PRESCRIPTION DRUG MONITORING PROGRAM REVIEWED*: No *COPY OF PRESCRIPTION DRUG MONITORING REPORT IN PATIENT DEE: No Referrals: Otf Womack MD [Primary Care Provider] - Additional Instructions: Follow up with Dr Womack and [facility]. Please return if you are worse.
== END 2018-03-05 21:46 | disposition home or self-care (01) ==
LOC: JD.ED 20:29
DX: O09.93 Supervision of high risk pregnancy, unspecified, third trimester (principal); O99.89 Other specified diseases and conditions complicating pregnancy, childbirth and the puerperium; M54.5 Low back pain; O99.333 Smoking (tobacco) complicating pregnancy, third trimester; F17.210 Nicotine dependence, cigarettes, uncomplicated; Z88.8 Allergy status to other drugs, medicaments and biological substances; Z91.040 Latex allergy status; Z3A.32 32 weeks gestation of pregnancy
CPT/HCPCS: 96372; 99283; A9270; J1170; 99284

== ENCOUNTER 2018-06-11 15:50 | Emergency (ER) | payer MEDICAID, OTHER ==
[2018-06-11 16:02] VITALS: BP 128/85
--- NOTE | 2018-06-11 16:37 | EDM.PDOC ---
ED HPI GENERAL MEDICAL PROBLEM - General Chief Complaint: Gastrointestinal Problem Stated Complaint: HEADACHE X 4 DAYS Time Seen by Provider: 06/11/18 16:36 Source of Information: Reports: Patient, RN Notes Reviewed - History of Present Illness INITIAL COMMENTS - FREE TEXT/NARRATIVE: 37 year old female comes in with Mills, Nausea. Requesting medication for nausea. States Mills is similar to other headaches she has had in the past. She has not been vomiting. frontal Pain Score (Numeric/FACES): 10 - Related Data Allergies Allergy/AdvReac Type Severity Reaction Status Date / Time latex Allergy Swollen Verified 06/11/18 16:02 Tongue promethazine HCl AdvReac Mild Anxiety Verified 06/11/18 16:02 [From Phenergan] metoclopramide HCl AdvReac Anxiety Verified 06/11/18 16:02 [From Reglan] fentanyl patch Allergy Anaphylactic Uncoded 06/11/18 16:02 Shock Home Meds: Home Meds Vit Calc,Iron,Folic [ Vitamins] 1 tab PO BID 02/09/18 [History] Pantoprazole Sodium [Protonix] 40 mg PO DAILY #30 tablet.dr 04/02/18 [Rx] Acetaminophen [Tylenol] 650 mg PO Q6H PRN tablet 05/03/18 [Rx] Docusate Sodium [Colace] 100 mg PO BID PRN cap 05/03/18 [Rx] Ibuprofen [Motrin] 200 - 600 mg PO Q6H PRN tablet 05/03/18 [Rx] Vit with Ca/FA/Iron [ Plus Iron] 1 each PO BID tablet [Rx] Sertraline [Zoloft] 50 mg PO BEDTIME #30 tab 05/03/18 [Rx] Past Medical History HEENT History: Reports: Impaired Vision Respiratory History: Reports: Pneumonia, Recurrent Gastrointestinal History: Reports: Other (See Below) Other Gastrointestinal History: pernicious anemia, hyperemesis. 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 Endocrine/Metabolic History: Reports: Obesity/BMI 30+ Hematologic History: Reports: Anemia Other Hematologic History: pernicoius anemia Oncologic (Cancer) History: Reports: None - Infectious Disease History Infectious Disease History: Reports: Chicken Pox - Past Surgical History Female Surgical History: Reports: Tubal Ligation Musculoskeletal Surgical History: Reports: Other (See Below) Social & Family History - Family History Family Medical History: Noncontributory - Tobacco Use Smoking Status *Q: Current Every Day Smoker Years of Tobacco use: 20 Packs/Tins Daily: 1 - Caffeine Use Caffeine Use: Reports: None - Recreational Drug Use Recreational Drug Use: No - Living Situation & Occupation Living situation: Reports: , with Spouse, with Family (Son) Occupation: Unemployed ED ROS GENERAL - Review of Systems Review Of Systems: See Below Constitutional: Denies: Fever, Chills HEENT: Denies: Sinus Problem, Vision Change Respiratory: Denies: Shortness of Breath Cardiovascular: Denies: Chest Pain GI/Abdominal: Reports: Nausea. Denies: Abdominal Pain, Vomiting Musculoskeletal: Reports: Back Pain (chronic) Skin: Reports: No Symptoms Neurological: Reports: Headache. Denies: Trouble Speaking, Weakness ED EXAM, GI/ABD - Physical Exam Exam: See Below General Appearance: Alert, No Apparent Distress Eyes: Bilateral: Normal Appearance Throat/Mouth: Normal Inspection Head: Atraumatic Neck: Supple, Full Range of Motion Respiratory/Chest: No Respiratory Distress, Lungs Clear, Normal Breath Sounds Cardiovascular: Regular Rate, Rhythm Extremities: Normal Inspection, Normal Range of Motion Neurological: Alert, Oriented, No Motor/Sensory Deficits Skin Exam: Warm, Dry, Normal Color Course - Vital Signs Last Recorded V/S: Last Vital Signs Temp 98.1 F 06/11/18 15:55 Pulse 78 06/11/18 15:55 Resp 18 06/11/18 15:55 BP 128/85 06/11/18 15:55 Pulse Ox 98 06/11/18 15:55 - Orders/Labs/Meds Meds: Medications Discontinued Medications Generic Name Dose Route Start Last Admin Trade Name Freq PRN Reason Stop Dose Admin Ondansetron HCl 4 mg 06/11/18 16:41 06/11/18 16:58 Zofran Odt PO 06/11/18 16:42 4 mg ONETIME ONE Administration Ondansetron HCl 4 mg 06/11/18 17:11 06/11/18 17:28 Zofran Odt PO 06/11/18 17:12 4 mg ONETIME ONE Administration Departure - Departure Time of Disposition: 17:12 Disposition: Home, Self-Care 01 Condition: Fair Clinical Impression: Vomiting Headache Qualifiers: Headache type: unspecified Headache chronicity pattern: chronic headache Intractability: not intractable Qualified Code(s): R51 - Headache - Discharge Information Instructions: Vomiting, Adult Referrals: Selin Lara MD [Primary Care Provider] - Forms: ED Department Discharge Additional Instructions: Clear liquids until nausea, vomiting improves, then very careful bland diet as tolerated. You have been given Zofran while here in the ED. You may repeat that in about 6-7 hours later this evening if needed for further nausea or vomiting. You may continue to alternate Tylenol and ibuprofen as needed for headache. Follow up with your regular medical provider as needed.
[2018-06-11] MEDS ORDERED: Ondansetron 4 MG Tab.DIS PO ONE ×2 (16:41→17:11)
== END 2018-06-11 17:30 | disposition home or self-care (01) ==
LOC: JD.ED 15:50
DX: R51 Headache (principal); R11.2 Nausea with vomiting, unspecified; F41.9 Anxiety disorder, unspecified; F32.9 Major depressive disorder, single episode, unspecified; F17.210 Nicotine dependence, cigarettes, uncomplicated; Z79.899 Other long term (current) drug therapy; Z87.440 Personal history of urinary (tract) infections; Z88.8 Allergy status to other drugs, medicaments and biological substances; Z91.040 Latex allergy status; Z98.51 Tubal ligation status
CPT/HCPCS: 99283; A9270

== ENCOUNTER 2018-07-27 01:42 | Emergency (ER) | payer SELFPAY ==
[2018-07-27 01:54] VITALS: BP 131/91
[2018-07-27] MEDS ORDERED: Ondansetron 4 MG/2 ML SDV IVPUSH ONE (02:30)
[2018-07-27] MEDS ORDERED: Sodium Chloride 0.9% 10 ML Syringe FLUSH PRN (02:30)
[2018-07-27] MEDS ORDERED: Sodium Chloride 0.9% 1,000 ML IV SCH (02:30)
[2018-07-27] MEDS ORDERED: Famotidine 20 MG/2 ML SDV IVPUSH ONE (02:30)
[2018-07-27] MEDS ORDERED: Ketorolac 30 MG/ML SDV IVPUSH SCH (02:30)
--- NOTE | 2018-07-27 03:03 | EDM.PDOC ---
ED HPI GENERAL MEDICAL PROBLEM - General Chief Complaint: Abdominal Pain Stated Complaint: RIGHT SIDE PAIN Time Seen by Provider: 07/27/18 02:19 Source of Information: Reports: Patient, RN Notes Reviewed - History of Present Illness INITIAL COMMENTS - FREE TEXT/NARRATIVE: 37 show female comes in with abdominal pain vomiting and also recent diarrhea. She had abdominal pain and diarrhea yesterday about 16-18 hours ago. She had multiple episodes of diarrhea for about an hour. Last evening she was still nauseated but did eat a sandwich. After that she is been more sick with intermittent episodes of vomiting and abdominal pain. The pain is been primarily upper abdomen and right upper abdomen with some radiation to the right flank and back. She is no longer having diarrhea. No fever or chills with this. Still does have her appendix and gallbladder. Right Middle Abdomen Pain Score (Numeric/FACES): 8 - Related Data Allergies Allergy/AdvReac Type Severity Reaction Status Date / Time latex Allergy Swollen Verified 07/27/18 01:53 Tongue promethazine HCl AdvReac Mild Anxiety Verified 07/27/18 01:53 [From Phenergan] metoclopramide HCl AdvReac Anxiety Verified 07/27/18 01:53 [From Reglan] fentanyl patch Allergy Anaphylactic Uncoded 07/27/18 01:53 Shock Home Meds: Home Meds Cyclobenzaprine [Flexeril] 10 mg PO Q4H PRN 06/30/18 [History] Naproxen 500 mg PO DAILY PRN 06/30/18 [History] Past Medical History HEENT History: Reports: Impaired Vision Cardiovascular History: Reports: [place] Respiratory History: Reports: Bronchitis, Recurrent, Pneumonia, Recurrent Gastrointestinal History: Reports: Other (See Below) Other Gastrointestinal History: pernicious anemia, hyperemesis. 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 Endocrine/Metabolic History: Reports: Obesity/BMI 30+ Hematologic History: Reports: Anemia Other Hematologic History: pernicoius anemia Oncologic (Cancer) History: Reports: None - Infectious Disease History Infectious Disease History: Reports: Chicken Pox - Past Surgical History Female Surgical History: Reports: Tubal Ligation Musculoskeletal Surgical History: Reports: Other (See Below) Social & Family History - Family History Family Medical History: Noncontributory - Tobacco Use Smoking Status *Q: Current Every Day Smoker Years of Tobacco use: 19 Packs/Tins Daily: 0.2 - Caffeine Use Caffeine Use: Reports: Soda - Recreational Drug Use Recreational Drug Use: No - Living Situation & Occupation Living situation: Reports: , with Spouse, with Family (Son, daughter) Occupation: Unemployed ED ROS GENERAL - Review of Systems Review Of Systems: See Below Constitutional: Denies: Fever, Chills, Diaphoresis HEENT: Denies: Throat Pain Respiratory: Denies: Shortness of Breath, Pleuritic Chest Pain Cardiovascular: Denies: Chest Pain GI/Abdominal: Reports: Abdominal Pain, Diarrhea, Nausea, Vomiting : Reports: No Symptoms Musculoskeletal: Reports: Back Pain (Gone) Skin: Reports: No Symptoms Neurological: Reports: No Symptoms ED EXAM, GI/ABD - Physical Exam Exam: See Below General Appearance: Alert, Mild Distress Throat/Mouth: Normal Inspection Neck: Supple Respiratory/Chest: No Respiratory Distress, Lungs Clear, Normal Breath Sounds Cardiovascular: Regular Rate, Rhythm GI/Abdominal Exam: Soft, Tender (Mild tenderness upper mid abdomen, right upper quadrant, right flank, lower abdomen and left abdomen completely nontender). No : Guarding, Rebound Extremities: Normal Inspection Neurological: Alert, No Motor/Sensory Deficits Skin Exam: Warm, Dry, Normal Color Course - Vital Signs Last Recorded V/S: Last Vital Signs Temp 98.0 F 07/27/18 01:50 Pulse 81 07/27/18 01:50 Resp 18 07/27/18 01:50 BP 131/91 H 07/27/18 01:50 Pulse Ox 100 07/27/18 01:50 - Orders/Labs/Meds Orders: Active Orders 24 hr Category Date Time Status Peripheral IV Care [RC] . DIRECTED Care 07/27/18 02:32 Active Sodium Chloride 0.9% [Normal Saline] 1,000 ml Med 07/27/18 02:30 Active IV ONETIME Sodium Chloride 0.9% [Saline Flush] Med 07/27/18 02:30 Active 10 ml FLUSH ASDIRECTED PRN Peripheral IV Insertion Adult [OM.PC] Stat Oth 07/27/18 02:30 Ordered Medication Orders Sodium Chloride (Normal Saline) 1,000 mls @ 999 mls/hr IV ONETIME NAJMA Last Admin: 07/27/18 02:43 Dose: 999 mls/hr Sodium Chloride (Saline Flush) 10 ml FLUSH ASDIRECTED PRN PRN Reason: Keep Vein Open Last Admin: 07/27/18 02:44 Dose: 10 ml Labs: Laboratory Tests 07/27/18 07/27/18 Range/Units 02:44 02:44 WBC 8.60 (3.98-10.04) K/mm3 RBC 4.03 (3.98-5.22) M/mm3 Hgb 12.5 (11.2-15.7) gm/L Hct 40.0 (34.1-44.9) % MCV 99.3 H (79.4-94.8) fl MCH 31.0 (25.6-32.2) pg MCHC 31.3 L (32.2-35.5) g/dl RDW Std Deviation 43.9 (36.4-46.3) fL Plt Count 276 (182-369) K/mm3 MPV 10.6 (9.4-12.3) fl Neut % (Auto) 57.7 (34.0-71.1) % Lymph % (Auto) 28.4 (19.3-51.7) % [place] % (Auto) 7.3 (4.7-12.5) % Eos % (Auto) 6.2 H (0.7-5.8) Baso % (Auto) 0.3 (0.1-1.2) % Neut # (Auto) 4.96 (1.56-6.13) K/mm3 Lymph # (Auto) 2.44 (1.18-3.74) K/mm3 [place] # (Auto) 0.63 H (0.24-0.36) K/mm3 Eos # (Auto) 0.53 H (0.04-0.36) K/mm3 Baso # (Auto) 0.03 (0.01-0.08) K/mm3 Sodium 141 (136-145) mEq/L Potassium 3.8 (3.5-5.1) mEq/L Chloride 106 (98-107) mEq/L Carbon Dioxide 28 (21-32) mEq/L Anion Gap 10.8 (5-15) BUN 17 (7-18) mg/dL Creatinine 1.0 (0.55-1.02) mg/dL Est Cr Clr Drug Dosing 75.63 mL/min Estimated GFR (MDRD) > 60 (>60) mL/min BUN/Creatinine Ratio 17.0 (14-18) Glucose 100 (74-106) mg/dL Calcium 8.8 (8.5-10.1) mg/dL Total Bilirubin 0.4 (0.2-1.0) mg/dL AST 28 (15-37) U/L ALT 53 (14-59) U/L Alkaline Phosphatase 75 (46-116) U/L Total Protein 7.6 (6.4-8.2) g/dl Albumin 3.3 L (3.4-5.0) g/dl Globulin 4.3 gm/dL Albumin/Globulin Ratio 0.8 L (1-2) Lipase 149 (73-393) U/L Meds: Medications Generic Name Dose Route Start Last Admin Trade Name Freq PRN Reason Stop Dose Admin Sodium Chloride 1,000 mls @ 999 mls/hr 07/27/18 02:30 07/27/18 02:43 Normal Saline IV 999 mls/hr ONETIME NAJMA Administration Sodium Chloride 10 ml 07/27/18 02:30 07/27/18 02:44 Saline Flush FLUSH 10 ml ASDIRECTED PRN Administration Keep Vein Open Discontinued Medications Generic Name Dose Route Start Last Admin Trade Name Freq PRN Reason Stop Dose Admin Famotidine 20 mg 07/27/18 02:30 07/27/18 02:46 Pepcid IVPUSH 07/27/18 02:31 20 mg ONETIME ONE Administration Ketorolac Tromethamine 30 mg 07/27/18 02:30 Toradol IVPUSH ONETIME NAJMA Ondansetron HCl 4 mg 07/27/18 02:30 07/27/18 02:44 Zofran IVPUSH 07/27/18 02:31 4 mg ONETIME ONE Administration - Re-Assessments/Exams Free Text/Narrative Re-Assessment/Exam: 07/27/18 03:49 White blood count, chemistries normal, resting quite comfortably after 1 L normal saline, Zofran 4 mg IV, no longer vomiting. Was offered but she refused. His charge instructions as documented. Departure - Departure Time of Disposition: 03:40 Disposition: Home, Self-Care 01 Condition: Fair Clinical Impression: Vomiting Qualifiers: Vomiting type: unspecified Vomiting Intractability: non-intractable Nausea presence: with nausea Qualified Code(s): R11.2 - Nausea with vomiting, unspecified Abdominal pain Qualifiers: Abdominal location: generalized Qualified Code(s): R10.84 - Generalized abdominal pain Diarrhea Qualifiers: Diarrhea type: unspecified type Qualified Code(s): R19.7 - Diarrhea, unspecified - Discharge Information Instructions: Abdominal Pain, Adult, [id number] Referrals: Selin Lara MD [Primary Care Provider] - Forms: ED Department Discharge Additional Instructions: Clear liquids until this afternoon or until pain, nausea vomiting have all completely resolved, then very careful bland diet as tolerated. Follow-up clinic if not back to normal within 1-2 days as expected, return to ED as needed if symptoms worsening in any way, especially if pain localizing to right lower abdomen. - My Orders Last 24 Hours: My Active Orders 07/27/18 02:30 Sodium Chloride 0.9% [Normal Saline] 1,000 ml IV ONETIME Sodium Chloride 0.9% [Saline Flush] 10 ml FLUSH ASDIRECTED PRN Peripheral IV Insertion Adult [OM.PC] Stat 07/27/18 02:32 Peripheral IV Care [RC] . DIRECTED - Assessment/Plan Last 24 Hours: My Active Orders 07/27/18 02:30 Sodium Chloride 0.9% [Normal Saline] 1,000 ml IV ONETIME Sodium Chloride 0.9% [Saline Flush] 10 ml FLUSH ASDIRECTED PRN Peripheral IV Insertion Adult [OM.PC] Stat 07/27/18 02:32 Peripheral IV Care [RC] . DIRECTED
== END 2018-07-27 03:47 | disposition home or self-care (01) ==
LOC: JD.ED 01:42
DX: R11.2 Nausea with vomiting, unspecified (principal); R10.84 Generalized abdominal pain; R19.7 Diarrhea, unspecified; F17.210 Nicotine dependence, cigarettes, uncomplicated; F41.9 Anxiety disorder, unspecified; F32.9 Major depressive disorder, single episode, unspecified; Z79.899 Other long term (current) drug therapy; Z91.040 Latex allergy status; Z88.8 Allergy status to other drugs, medicaments and biological substances
CPT/HCPCS: 36415; 80053; 83690; 85025; 96361; 96374; 96375; 99284; J2405; J3490; J7040

== ENCOUNTER 2019-01-17 07:31 | Day surgery (SDC) | payer SELFPAY ==
[~2019-01-17 07:31] MED LIST: Lactated Ringers 1,000 ML IV SCH; Lidocaine 1%/Sod Bicarbonate in NS 8.4% 1 ML Syringe IDERM PRN; Sodium Chloride 0.9% 10 ML Syringe FLUSH PRN
[2019-01-17] MEDS ORDERED: ceFAZolin 2 GM in Premix Bag 1 BAG IV ONE (08:54)
[2019-01-17] MEDS ORDERED: Propofol 200 MG/20 ML SDV ONE (09:06)
[2019-01-17] MEDS ORDERED: Midazolam 1 MG/ML 2 ML SDV ONE (09:06)
[2019-01-17] MEDS ORDERED: Rocuronium 50 MG/5 ML Vial ONE ×2 (09:07→12:03)
[2019-01-17] MEDS ORDERED: fentaNYL 250 MCG/5 ML SDV ONE (09:07)
[2019-01-17] MEDS ORDERED: Lidocaine 1% 2 ML ONE ×2 (09:18→09:19)
--- NOTE | 2019-01-17 10:01 | PCM.PREANE ---
Preanesthetic Assessment - Anesthesia/Transfusion/Family Hx Anesthesia History: Prior Anesthesia Without Reaction Family History of Anesthesia Reaction: No Transfusion History: No Prior Transfusion(s) - Review of Systems General: No Symptoms Pulmonary: No Symptoms Cardiovascular: No Symptoms Gastrointestinal: No Symptoms Neurological: No Symptoms Other: Reports: None - Physical Assessment NPO Status Date: 01/16/19 NPO Status Time: 20:00 Vital Signs: Last Vital Signs Temp 36.8 C 01/17/19 08:00 Pulse 56 L 01/17/19 08:00 Resp 18 01/17/19 08:00 BP 117/73 01/17/19 08:00 Pulse Ox 99 01/17/19 08:00 Height: 1.68 m Weight: 111.3 kg ASA Class: 2 Mental Status: Alert & Oriented x3 Airway Class: Mallampati = 2 Dentition: Reports: Broken Tooth/Teeth, Missing Tooth/Teeth Thyro-Mental Finger Breadths: 3 Mouth Opening Finger Breadths: 3 ROM/Head Extension: Full Lungs: Clear to Auscultation, Normal Respiratory Effort Cardiovascular: Regular Rate, Regular Rhythm - Lab Values: Laboratory Last Values Urine HCG, Qual Negative (NEGATIVE) 01/17/19 08:05 - Allergies Allergies/Adverse Reactions: Allergies Allergy/AdvReac Type Severity Reaction Status Date / Time latex Allergy Anaphylactic Verified 01/17/19 08:38 Shock promethazine HCl AdvReac Mild Anxiety Verified 01/17/19 08:38 [From Phenergan] metoclopramide HCl AdvReac Anxiety Verified 01/17/19 08:38 [From Reglan] fentanyl patch Allergy Anaphylactic Uncoded 01/17/19 08:38 Shock - Acknowledgements Anesthesia Type Planned: General Anesthesia Pt an Appropriate Candidate for the Planned Anesthesia: Yes Alternatives and Risks of Anesthesia Discussed w Pt/Guardian: Yes Pt/Guardian Understands and Agrees with Anesthesia Plan: Yes PreAnesthesia Questionnaire HEENT History: Reports: Impaired Vision Cardiovascular History: Reports: [place] ([place]?? pt states she got tased_pt states did see cardiology and has no damage- SR 87) Respiratory History: Reports: Bronchitis, Recurrent, Pneumonia, Recurrent Gastrointestinal History: Reports: Cholelithiasis, GERD, Other (See Below) Other Gastrointestinal History: pernicious anemia, hyperemesis. 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 Endocrine/Metabolic History: Reports: Obesity/BMI 30+ Hematologic History: Reports: Anemia Other Hematologic History: pernicoius anemia Immunologic History: Reports: None Oncologic (Cancer) History: Reports: None Dermatologic History: Reports: None - Infectious Disease History Infectious Disease History: Reports: Chicken Pox - Past Surgical History Head Surgeries/Procedures: Reports: None HEENT Surgical History: Reports: Oral Surgery Female Surgical History: Reports: D&C, Tubal Ligation Musculoskeletal Surgical History: Reports: Other (See Below) - HOME MEDS Home Medications: Home Meds . [No Known Home Meds] 01/17/19 [History] - CURRENT (IN HOUSE) MEDS Current Meds: Current Medications Lactated Ringer's (Ringers, Lactated) 1,000 mls @ 125 mls/hr IV ASDIRECTED NAJMA Stop: 01/17/19 23:00 Last Admin: 01/17/19 08:18 Dose: 125 mls/hr Lidocaine/Sodium Bicarbonate (Buffered Lidocaine 1% In Ns 8.4%) 0.25 ml IDERM ONETIME PRN PRN Reason: Prior to IV Start Stop: 01/17/19 18:00 Sodium Chloride (Saline Flush) 10 ml FLUSH ASDIRECTED PRN PRN Reason: Keep Vein Open Stop: 01/17/19 18:00 Discontinued Medications Fentanyl (Sublimaze) Confirm Administered Dose 250 mcg .ROUTE .STK-MED ONE Stop: 01/17/19 09:08 Cefazolin Sodium/Dextrose 2 gm (/ Premix) 50 mls @ 100 mls/hr IV ONETIME ONE Stop: 01/17/19 09:23 Lidocaine HCl (Xylocaine-Mpf 1%) Confirm Administered Dose 2 mls @ as directed .ROUTE .STK-MED ONE Stop: 01/17/19 09:19 Lidocaine HCl (Xylocaine-Mpf 1%) Confirm Administered Dose 2 mls @ as directed .ROUTE .STK-MED ONE Stop: 01/17/19 09:20 Midazolam HCl (Versed 1 Mg/Ml) Confirm Administered Dose 2 mg .ROUTE .STK-MED ONE Stop: 01/17/19 09:07 Propofol (Diprivan 20 Ml) Confirm Administered Dose 200 mg .ROUTE .STK-MED ONE Stop: 01/17/19 09:07 Rocuronium [place] (Zemuron) Confirm Administered Dose 50 mg .ROUTE .STK-MED ONE Stop: 01/17/19 09:08
[2019-01-17] MEDS ORDERED: ceFAZolin 1 GM Vial ONE ×2 (10:11→10:38)
[2019-01-17] MEDS ORDERED: Lidocaine 1% 30 ML SDV ONE (10:20)
[2019-01-17] MEDS ORDERED: fentaNYL 100 MCG/2 ML SDV ONE ×2 (10:47→12:08)
[2019-01-17] MEDS ORDERED: diphenhydrAMINE 50 MG/ML SDV IVPUSH PRN (10:51)
[2019-01-17] MEDS ORDERED: HYDROmorphone 0.5 MG/0.5 ML Syringe IVPUSH PRN (10:51)
[2019-01-17] MEDS ORDERED: Ondansetron 4 MG/2 ML SDV IVPUSH PRN (10:51)
[2019-01-17] MEDS ORDERED: fentaNYL 100 MCG/2 ML SDV IVPUSH PRN (10:51)
[2019-01-17] MEDS ORDERED: HYDROmorphone 0.5 MG/0.5 ML Syringe ONE ×2 (11:14→11:47)
[2019-01-17] MEDS ORDERED: Lactated Ringers 1,000 ML ONE (11:20)
[2019-01-17] MEDS ORDERED: Ondansetron 4 MG/2 ML SDV ONE (11:55)
[2019-01-17] MEDS ORDERED: Neostigmine Methylsulfate 1 MG/ML 5 ML Syringe ONE (12:21)
[2019-01-17] MEDS ORDERED: Ketorolac 30 MG/ML SDV ONE (12:22)
[2019-01-17] MEDS ORDERED: Acetaminophen/HYDROcodone 325-5 MG Tab PO PRN (12:47)
[2019-01-17] MEDS ORDERED: Docusate Sodium 100 MG Cap PO PRN (12:47)
--- NOTE | 2019-01-17 12:50 | PCM.POSTAN ---
POST ANESTHESIA ASSESSMENT - MENTAL STATUS Mental Status: Alert, Oriented - VITAL SIGNS Vital Signs: Last Vital Signs Temp 36.8 C 01/17/19 08:00 Pulse 56 L 01/17/19 08:00 Resp 18 01/17/19 08:00 BP 117/73 01/17/19 08:00 Pulse Ox 99 01/17/19 08:00 - RESPIRATORY Respiratory Status: Respiratory Rate WNL, Airway Patent, O2 Saturation Stable - CARDIOVASCULAR CV Status: Pulse Rate WNL, Blood Pressure Stable - GASTROINTESTINAL GI Status: No Symptoms - PAIN Pain Score: 0 - POST OP HYDRATION Hydration Status: Adequate & Stable
--- NOTE | 2019-01-17 12:54 | PCM.OPNOTE ---
- General Post-Op/Procedure Note Date of Surgery/Procedure: 01/17/19 Operative Procedure(s): Laparoscopic cholecystectomy Findings: Cholelithiasis, Chronic cholecystitis Pre Op Diagnosis: Biliary colic Post-Op Diagnosis: Chronic cholecystitis Anesthesia Technique: General ET Tube Primary Surgeon: Radha Bryant Anesthesia Provider: Noelle Ascencio Technology Solutions Architect: Sanju Bryant Reason Technology Solutions Architect Was Necessary: Laparoscopic procedure requiring instrument holding Role of Technology Solutions Architect: Camera and retractor holding Fluid Replacement, Intraop: 1,500 EBL in mLs: 10 Complications: None Condition: Good
--- NOTE | 2019-01-17 13:09 | PCM48HPAN ---
Post Anesthesia Note - EVALUATION WITHIN 48HRS OF ANESTHETIC Vital Signs in Normal Range: Yes Patient Participated in Evaluation: Yes Respiratory Function Stable: Yes Airway Patent: Yes Cardiovascular Function Stable: Yes Hydration Status Stable: Yes Pain Control Satisfactory: Yes Nausea and Vomiting Control Satisfactory: Yes Mental Status Recovered: Yes Vital Signs: Last Vital Signs Temp 36.7 C 01/17/19 12:44 Pulse 56 L 01/17/19 08:00 Resp 12 01/17/19 13:00 BP 113/69 01/17/19 13:00 Pulse Ox 94 L 01/17/19 13:00
--- NOTE | 2019-01-17 13:56 | OR ---
DATE OF OPERATION: 01/17/2019 SURGEON: Radha Bryant MD PREOPERATIVE DIAGNOSIS: Biliary colic. POSTOPERATIVE DIAGNOSIS: 1. Cholelithiasis. 2. Chronic cholecystitis. OPERATION PERFORMED: Laparoscopic cholecystectomy. ANESTHESIA: General endotracheal. ESTIMATED BLOOD LOSS: 10 mL. FLUIDS: 1500 mL. FINDINGS: Scarring of the gallbladder fossa indicating chronic cholecystitis as well as large stone within the gallbladder. INDICATIONS AND CONSENT: Ms. Willams is a 38-year-old female who presented to my clinic for evaluation of chronically encountered right upper quadrant pain. She had this problem for several months that was causing her not to eat, sometimes nausea and vomiting. Eventually, she presented to be evaluated. At the point when she presented to my office, she already had right upper quadrant ultrasound and was diagnosed with cholelithiasis. Given her symptoms which were typical for biliary colic, we arranged for laparoscopic cholecystectomy. Of note, the patient had labs done on 01/01/2019 that revealed normal LFTs, normal white count as well as normal CBC causing the concern for choledocholithiasis essentially minute. We discussed with the patient the options for surgery including open surgery and laparoscopic surgery as well as watchful waiting. The patient decided to proceed with laparoscopic cholecystectomy with possible open. Risks discussed include injury to biliary tree, injury to bowel, injury to the liver, bleeding, infection, wound complications, reaction to medications, and even . The patient understood and agreed to proceed with the procedure and informed consent was obtained. DESCRIPTION OF PROCEDURE: The patient was taken to the operating room and placed on the operating table in supine position. Following induction of general endotracheal anesthesia, preoperative antibiotics consisting of Ancef was given. SCDs were placed and the patient was padded appropriately to prevent pressure point ulceration. Then, the abdomen was prepped and draped in the usual sterile fashion and then a formal time-out was performed prior to the start of the procedure. We began the procedure by accessing the abdomen via standard cutdown method and then Saji trocar was placed. 03/28 scope was placed into the abdomen and quick inspection of the abdominal content did not reveal any injury due to entry and the gallbladder was visualized. The gallbladder was slightly distended. Then, 3 additional 5 mm trocars were placed, one in the epigastric area and two in the right subcostal area. Then, a grasper was placed in the fundus of the gallbladder and cephalad retraction was performed revealing the gallbladder body and the fundus as well as the infundibulum. Then, there were some adhesions of the omentum to the gallbladder fossa indicating prior inflammation. This was taken down bluntly and with electrocautery. Then, dissection of the infundibulum and cystic duct began using both [place] dissector as well as Bovie electrocautery. The cystic duct was skeletonized as well as the cystic artery was also skeletonized. All attachment to the cystic artery and cystic duct were removed revealing the critical window of safety. When this was done, the cystic duct was clipped with 3 clips as well as the cystic artery was also clipped similarly with 3 clips. Then, Endoshears were used to cut the cystic duct and cystic artery leaving the 2 clips in situ. Then, the gallbladder was dissected off the gallbladder fossa with electrocautery. Any bleeding was cauterized. Once the gallbladder was dissected off the cystic bed, it was placed into the EndoCatch bag. Then, we reinspected the gallbladder fossa and noted that to be hemostatic. There was no bleeding from that area. At this point, the procedure was concluded. The gallbladder was removed through the umbilical incision and set aside to be sent to pathology. The umbilical incision was closed in 2 layers, the fascia was reapproximated with 0 Vicryl stitches in a [id number] fashion and all incisions were reapproximated with 0 Monocryl. The incisions were dressed with Dermabond. This marked the end of the procedure. The patient tolerated the procedure well and counts were correct x2. The patient was awoken from anesthesia and taken to the PACU for recovery. The plan is for the patient to be discharged home today, to avoid lifting more than 10 pounds for 4 weeks. The patient will follow up with me in clinic for postop check in 2 weeks. MMODAL /[id number]
[2019-01-17 14:15] VITALS: BP 103/64
== END 2019-01-17 14:05 | disposition home or self-care (01) ==
LOC: JD.SDS 07:31
PROVIDERS: ATTEND Surgery
DX: K80.10 Calculus of gallbladder with chronic cholecystitis without obstruction (principal); F17.210 Nicotine dependence, cigarettes, uncomplicated; G47.33 Obstructive sleep apnea (adult) (pediatric); G89.29 Other chronic pain; M54.9 Dorsalgia, unspecified; K21.9 Gastro-esophageal reflux disease without esophagitis; E66.9 Obesity, unspecified; Z68.39 Body mass index [BMI] 39.0-39.9, adult; Z91.040 Latex allergy status; Z88.5 Allergy status to narcotic agent; Z88.8 Allergy status to other drugs, medicaments and biological substances
CPT/HCPCS: 47562; 81025; J0690; J1170; J1885; J2001; J2250; J2405; J2704; J2710; J3010; J7120; 00790

== ENCOUNTER 2019-02-24 22:46 | Emergency (ER) | payer SELFPAY ==
[2019-02-24 22:55] VITALS: BP 136/93; PULSE 99
[2019-02-24] MEDS ORDERED: Silver Sulfadiazine 1% Crm 50 GM Tube TOP ONE (23:03)
--- NOTE | 2019-02-24 23:09 | EDM.PDOC ---
ED HPI GENERAL MEDICAL PROBLEM - General Chief Complaint: Burn Stated Complaint: RIGHT ARM BURN Time Seen by Provider: 02/24/19 22:53 Source of Information: Reports: Patient History Limitations: Reports: No Limitations - History of Present Illness INITIAL COMMENTS - FREE TEXT/NARRATIVE: This is a 38-year-old female. She works at [employer]. She accidentally put her right forearm on the grill and she has a 6-7 cm long by 1 cm wide seared skin area. He comes to the ER for evaluation. There is no open wound but there is no blistering at this time either. She is wanting a cream to put on the burn so it doesn't get infected. She is up-to-date with her tetanus. Right Arm Pain Score (Numeric/FACES): 5 - Related Data Allergies Allergy/AdvReac Type Severity Reaction Status Date / Time latex Allergy Anaphylactic Verified 02/24/19 22:52 Shock promethazine HCl AdvReac Mild Anxiety Verified 02/24/19 22:52 [From Phenergan] metoclopramide HCl AdvReac Anxiety Verified 02/24/19 22:52 [From Reglan] fentanyl patch Allergy Anaphylactic Uncoded 02/24/19 22:52 Shock Home Meds: Home Meds . [No Known Home Meds] 01/17/19 [History] Past Medical History HEENT History: Reports: Impaired Vision Cardiovascular History: Reports: [place] Respiratory History: Reports: Bronchitis, Recurrent, Pneumonia, Recurrent Gastrointestinal History: Reports: Cholelithiasis, GERD, Other (See Below) Other Gastrointestinal History: pernicious anemia, hyperemesis. Genitourinary History: Reports: UTI, Recurrent, Other (See Below) CLINICAL TRIAL ASSOCIATE History: Reports: , Therapeutic Musculoskeletal History: Reports: Back Pain, Chronic, Fracture Other Musculoskeletal History: "Thoracic 8 is ruptured" Neurological History: Reports: Headaches, Chronic Other Neuro History: Low pressure spinal headaches, sciatic pain Psychiatric History: Reports: Anxiety, Depression Other Psychiatric History: pt states that she asked the MD for buspar as her anxiey causes her to have mood swings really bad. Endocrine/Metabolic History: Reports: Obesity/BMI 30+ Hematologic History: Reports: Anemia Other Hematologic History: pernicoius anemia Immunologic History: Reports: None Oncologic (Cancer) History: Reports: None Dermatologic History: Reports: None - Infectious Disease History Infectious Disease History: Reports: Chicken Pox - Past Surgical History Head Surgeries/Procedures: Reports: None HEENT Surgical History: Reports: Oral Surgery Female Surgical History: Reports: D&C, Tubal Ligation Musculoskeletal Surgical History: Reports: Other (See Below) Social & Family History - Family History Family Medical History: Noncontributory - Tobacco Use Smoking Status *Q: Current Every Day Smoker Years of Tobacco use: 19 Packs/Tins Daily: 0.2 - Caffeine Use Caffeine Use: Reports: None - Recreational Drug Use Recreational Drug Use: No - Living Situation & Occupation Living situation: Reports: , with Spouse, with Family (Daughter) Occupation: Unemployed ED ROS GENERAL - Review of Systems Review Of Systems: See Below Constitutional: Denies: Fever, Chills HEENT: Reports: No Symptoms Respiratory: Reports: No Symptoms Cardiovascular: Reports: No Symptoms Endocrine: Reports: No Symptoms GI/Abdominal: Reports: No Symptoms : Reports: No Symptoms Musculoskeletal: Reports: No Symptoms Skin: Reports: Other (As per history of present illness) Neurological: Reports: No Symptoms Psychiatric: Reports: No Symptoms Hematologic/Lymphatic: Reports: No Symptoms ED EXAM, BURN/SMOKE INHALATION - Physical Exam Exam: See Below Exam Limited By: No Limitations General Appearance: Alert, WD/WN, No Apparent Distress Eye Exam: Bilateral Eye: Normal Inspection Ears (Abbreviated): Normal External Exam Mouth/Throat: No Symptoms Reported Head: No Symptoms Neck: No Symptoms Respiratory: No Respiratory Distress Back Exam: Full Range of Motion Extremities: Other (On the ventral right forearm she has a scorched area without blistering or open wounds, the actual burn is 5 cm x 1 cm with some surrounding erythema that is 5 cm x 7 cm.) Neurological: Alert, Oriented Psychiatric: Normal Affect, Normal Mood Skin Exam: Warm, Dry Course - Vital Signs Last Recorded V/S: Last Vital Signs Temp 97.7 F 02/24/19 22:52 Pulse 99 02/24/19 22:52 Resp 16 02/24/19 22:52 BP 136/93 H 02/24/19 22:52 Pulse Ox 99 02/24/19 22:52 - Orders/Labs/Meds Orders: Active Orders 24 hr Category Date Time Status Silver Sulfadiazine [Silvadene 1% Cream 50 GM] Med 02/24/19 23:03 Once 2 gm TOP ONETIME ONE Medication Orders Silver Sulfadiazine (Silvadene 1% Cream 50 Gm) 2 gm TOP ONETIME ONE Stop: 02/24/19 23:04 Meds: Medications Generic Name Dose Route Start Last Admin Trade Name Olga PRN Reason Stop Dose Admin Silver Sulfadiazine 2 gm 02/24/19 23:03 Silvadene 1% Cream 50 Gm TOP 02/24/19 23:04 ONETIME ONE Departure - Departure Time of Disposition: 23:09 Disposition: Home, Self-Care 01 Condition: Good Clinical Impression: Mackay involving less than 10% of body surface Second degree burn of right forearm Qualifiers: Encounter type: initial encounter Qualified Code(s): T22.211A - Burn of second degree of right forearm, initial encounter - Discharge Information *PRESCRIPTION DRUG MONITORING PROGRAM REVIEWED*: Not Applicable *COPY OF PRESCRIPTION DRUG MONITORING REPORT IN PATIENT DEE: Not Applicable Instructions: Burn Care, Adult, [id number] Referrals: Selin Lara MD [Primary Care Provider] - Additional Instructions: Use the Silvadene cream in a light thin layer twice a day and keep the wound covered for the next 7 days, avoid extreme heat to that burn, follow-up your primary care provider in 7 days for recheck, take Tylenol or ibuprofen or Aleve as needed for the soreness, return to the ER if needed - My Orders Last 24 Hours: My Active Orders 02/24/19 23:03 Silver Sulfadiazine [Silvadene 1% Cream 50 GM] 2 gm TOP ONETIME ONE - Assessment/Plan Last 24 Hours: My Active Orders 02/24/19 23:03 Silver Sulfadiazine [Silvadene 1% Cream 50 GM] 2 gm TOP ONETIME ONE
== END 2019-02-24 23:32 | disposition home or self-care (01) ==
LOC: JD.ED 22:46
DX: T22.211A Burn of second degree of right forearm, initial encounter (principal); T31.10 Burns involving 10-19% of body surface with 0% to 9% third degree burns; I25.2 Old myocardial infarction; E66.9 Obesity, unspecified; F17.200 Nicotine dependence, unspecified, uncomplicated; Z68.37 Body mass index [BMI] 37.0-37.9, adult; Z88.8 Allergy status to other drugs, medicaments and biological substances; Z88.6 Allergy status to analgesic agent; Z91.040 Latex allergy status; X19.XXXA Contact with other heat and hot substances, initial encounter
CPT/HCPCS: 16020; 99283; A9270; 16000

== ENCOUNTER 2019-03-16 21:08 | Emergency (ER) | payer SELFPAY ==
[2019-03-16 21:24] VITALS: BP 143/100; PULSE 83
[2019-03-16] MEDS ORDERED: Bupivacaine 0.5% 10 ML SDV INJECT ONE (22:30)
[2019-03-16] MEDS ORDERED: Lidocaine 1% 10 ML MDV INJECT ONE (22:30)
[2019-03-16] MEDS ORDERED: Cephalexin 500 MG Cap PO STA (22:40)
--- NOTE | 2019-03-16 22:41 | EDM.PDOC ---
ED HPI GENERAL MEDICAL PROBLEM - General Chief Complaint: Upper Extremity Injury/Pain Stated Complaint: INFECTED MIDDLE FINGER RIGHT HAND Time Seen by Provider: 03/16/19 22:12 Source of Information: Reports: Patient History Limitations: Reports: No Limitations - History of Present Illness INITIAL COMMENTS - FREE TEXT/NARRATIVE: The patient states that she developed pain, redness, and swelling to the end of her right 3rd finger about 3 weeks ago. She does not recall any injury to the finger. No recent fever. No prior similar symptoms. The patient's PCP is Selin Lara NP. Her LIBRARY MEDIA ASSISTANT is Dr. Otf Womack. Right Finger-Middle Pain Score (Numeric/FACES): 5 - Related Data Allergies Allergy/AdvReac Type Severity Reaction Status Date / Time latex Allergy Anaphylactic Verified 03/16/19 21:20 Shock promethazine HCl AdvReac Mild Anxiety Verified 03/16/19 21:20 [From Phenergan] metoclopramide HCl AdvReac Anxiety Verified 03/16/19 21:20 [From Reglan] fentanyl patch Allergy Anaphylactic Uncoded 03/16/19 21:20 Shock Home Meds: Home Meds . [No Known Home Meds] 01/17/19 [History] Past Medical History HEENT History: Reports: Impaired Vision LIBRARY MEDIA ASSISTANT History: Reports: , Therapeutic Musculoskeletal History: Reports: Fracture (T8 compression) Psychiatric History: Reports: Anxiety, Depression Endocrine/Metabolic History: Reports: Obesity/BMI 30+ Hematologic History: Reports: Anemia (pernicoius anemia) - Infectious Disease History Infectious Disease History: Reports: Chicken Pox - Past Surgical History HEENT Surgical History: Reports: Oral Surgery GI Surgical History: Reports: Cholecystectomy (Dec 2018) Female Surgical History: Reports: D&C (x 1), Tubal Ligation Musculoskeletal Surgical History: Reports: Other (See Below) (Bilateral feet surgery) Social & Family History - Family History Family Medical History: Noncontributory - Tobacco Use Smoking Status *Q: Current Every Day Smoker Years of Tobacco use: 19 Packs/Tins Daily: 0.3 Packs/Tins Daily Comment: Down from 4 ppd - Caffeine Use Caffeine Use: Reports: None - Alcohol Use Alcohol Use History: Yes Alcohol Use Frequency: Socially - Recreational Drug Use Recreational Drug Use: Yes Drug Use in Last 12 Months: Yes Recreational Drug Type: Reports: Marijuana/Hashish (last smoked Jul 2018) - Living Situation & Occupation Living situation: Reports: , with Spouse, with Family (Daughter) Occupation: Employed ([employer]) Review of Systems - Review of Systems Review Of Systems: ROS reveals no pertinent complaints other than HPI. Musculoskeletal: Reports: Back Pain (chronic) Neurological: Reports: Headache (chronic) ED EXAM, GENERAL - Physical Exam Exam: See Below Exam Limited By: No Limitations General Appearance: Alert, WD/WN, No Apparent Distress Extremities: Other (Paronychia to the ulnar aspect of the patient's right 3rd finger, however, there is swelling and redness that involves most of the distal phalanx, including to the finger pad. Neurovascular status of the finger is intact.) ED TRAUMA EXTREMITY PROCEDURES - I&D Site: Right 3rd finger Skin Prep: Providone-Iodine (Betadine) Local Anesthesia: Lidocaine: 1% Plain (50:50 admixture) Local Anesthesia - Bupivicaine (Marcaine): 0.5% Plain (50:50 admixture) Local Anesthetic Volume: 5cc Area Incised With: 11 Blade Drainage: Purulent, Large Amount Probed to Break Up Loculations: No Packed With: None Sterile Dressing: Adhesive Dressing Complications: No Course - Vital Signs Last Recorded V/S: Last Vital Signs Temp 36.7 C 03/16/19 21:20 Pulse 83 03/16/19 21:20 Resp 16 03/16/19 21:20 BP 143/100 H 03/16/19 21:20 Pulse Ox 98 03/16/19 21:20 - Orders/Labs/Meds Orders: Active Orders 24 hr Category Date Time Status CULTURE WOUND [RM] Stat Lab 03/16/19 22:35 Ordered Meds: Medications Discontinued Medications Generic Name Dose Route Start Last Admin Trade Name Olga PRN Reason Stop Dose Admin Bupivacaine HCl 10 ml 03/16/19 22:30 03/16/19 22:44 Sensorcaine-Mpf 0.5% INJECT 03/16/19 22:31 10 ml ONETIME ONE Administration Cephalexin 500 mg 03/16/19 22:40 Keflex PO 03/16/19 22:41 ONETIME STA Lidocaine HCl 10 ml 03/16/19 22:30 03/16/19 22:44 Xylocaine 1% INJECT 03/16/19 22:31 10 ml ONETIME ONE Administration - Re-Assessments/Exams Free Text/Narrative Re-Assessment/Exam: 03/16/19 22:31 The patient has a paronychia to her right 3rd finger. I will place a digital block, then papo it. A culture of the pus, provided there is some, will be obtained. Because of the severity of the swelling to her distal phalanx, I believe a course of antibiotics is appropriate. The patient will be started on Keflex pending culture results. 03/16/19 23:07 A digital block was placed using bupivacaine 0.5% without epinephrine and lidocaine 1% without epinephrine. 10 minutes after it was placed, the patient had good anesthesia to tip of her finger. Her finger was cleaned with Betadine, dried, then the paronychia incised using a #11 blade. A sizable amount of pus and blood emanated. A culture of the pus was obtained. The finger was then milked under warm water for several minutes, and a Band-Aid applied. I would like the patient to continue to milk her finger under warm soapy water several times a day, for at least several days. The patient will be started on Keflex, and I will prescribe a 5-day course. Departure - Departure Time of Disposition: 23:08 Disposition: Home, Self-Care 01 Condition: Good Clinical Impression: Paronychia of right middle finger - Discharge Information *PRESCRIPTION DRUG MONITORING PROGRAM REVIEWED*: Not Applicable *COPY OF PRESCRIPTION DRUG MONITORING REPORT IN PATIENT DEE: Not Applicable Instructions: Paronychia, [id number] Referrals: Selin Lara MD [Primary Care Provider] - Otf Womack MD [Physician] - Forms: ED Department Discharge Additional Instructions: You were seen in the emergency room for a painful and swollen right middle finger. Your history and physical examination showed that you had a paronychia. Following a digital block, the paronychia was incised and drained. We recommend that you "milk" the finger under warm, soapy water several times a day, for the next several days. Place a Band-Aid over your finger if it continues to bleed. You have been started on the antibiotic Keflex. A perception for Keflex has been sent to the [facility], located in the [facility] grocery store. Take one tablet of Keflex every 6 hours, as prescribed. Finish the entire prescription unless told otherwise by a doctor. In addition to Keflex, you can also take [id number] ibuprofen, 2-3 tablets (400-600 mg) every 8 hours, with food, as needed for discomfort. If any other problems, please do not hesitate to return to the ER. - My Orders Last 24 Hours: My Active Orders 03/16/19 22:35 CULTURE WOUND [RM] Stat - Assessment/Plan Last 24 Hours: My Active Orders 03/16/19 22:35 CULTURE WOUND [RM] Stat
== END 2019-03-16 23:19 | disposition home or self-care (01) ==
LOC: JD.ED 21:08
DX: L03.011 Cellulitis of right finger (principal); F17.210 Nicotine dependence, cigarettes, uncomplicated; E66.9 Obesity, unspecified; Z68.37 Body mass index [BMI] 37.0-37.9, adult; Z88.5 Allergy status to narcotic agent; Z88.8 Allergy status to other drugs, medicaments and biological substances; Z91.040 Latex allergy status
CPT/HCPCS: 10060; 87070; 99283; A9270; J2001; J3490

== ENCOUNTER 2019-05-04 17:14 | Emergency (ER) | payer SELFPAY ==
[2019-05-04 17:57] VITALS: BP 110/63; PULSE 81
[2019-05-04] MEDS ORDERED: Lidocaine 1% 10 ML MDV INJECT ONE (18:15)
--- NOTE | 2019-05-04 19:32 | EDM.PDOC ---
ED HPI GENERAL MEDICAL PROBLEM - General Chief Complaint: Upper Extremity Injury/Pain Stated Complaint: L THUMB LAC Time Seen by Provider: 05/04/19 18:14 Source of Information: Reports: Patient, RN Notes Reviewed History Limitations: Reports: No Limitations - History of Present Illness INITIAL COMMENTS - FREE TEXT/NARRATIVE: Patient is a 38-year-old female who presents to the ED for the evaluation of a laceration on her left thumb. At around 5:00 PM, the patient was at work, and ended up cutting herself with a box worker at work. She notes she is up-to- date on her tetanus medication. She has a clean 2 cm linear laceration, that is over the PIP laterally and anteriorly of the left hand. Patient notes that she is right-handed. Bleeding is controlled at this time. She denies any numbness or tingling distally to the injury. She is able to move her thumb in all range of motion. Treatments PLASTICS HEAT WELDER: Reports: Other (see below) Other Treatments PLASTICS HEAT WELDER: pressure dressing Left Finger-Thumb Pain Score (Numeric/FACES): 6 - Related Data Allergies Allergy/AdvReac Type Severity Reaction Status Date / Time latex Allergy Anaphylactic Verified 03/16/19 21:20 Shock promethazine HCl AdvReac Mild Anxiety Verified 03/16/19 21:20 [From Phenergan] metoclopramide HCl AdvReac Anxiety Verified 03/16/19 21:20 [From Reglan] fentanyl patch Allergy Anaphylactic Uncoded 03/16/19 21:20 Shock Home Meds: Home Meds Phentermine HCl 37.5 mg PO DAILY 05/04/19 [History] Past Medical History HEENT History: Reports: Impaired Vision Cardiovascular History: Reports: [place] Respiratory History: Reports: Bronchitis, Recurrent, Pneumonia, Recurrent Gastrointestinal History: Reports: Cholelithiasis, GERD, Other (See Below) Other Gastrointestinal History: pernicious anemia, hyperemesis. Genitourinary History: Reports: UTI, Recurrent, Other (See Below) LACE WINDER History: Reports: , Therapeutic Musculoskeletal History: Reports: Fracture Other Musculoskeletal History: "Thoracic 8 is ruptured" Neurological History: Reports: Headaches, Chronic Other Neuro History: Low pressure spinal headaches, sciatic pain Psychiatric History: Reports: Anxiety, Depression Other Psychiatric History: pt states that she asked the MD for buspar as her anxiey causes her to have mood swings really bad. Endocrine/Metabolic History: Reports: Obesity/BMI 30+ Hematologic History: Reports: Anemia Other Hematologic History: pernicoius anemia Immunologic History: Reports: None Oncologic (Cancer) History: Reports: None Dermatologic History: Reports: None - Infectious Disease History Infectious Disease History: Reports: Chicken Pox - Past Surgical History Head Surgeries/Procedures: Reports: None HEENT Surgical History: Reports: Oral Surgery GI Surgical History: Reports: Cholecystectomy Female Surgical History: Reports: D&C, Tubal Ligation Musculoskeletal Surgical History: Reports: Other (See Below) Social & Family History - Family History Family Medical History: Noncontributory - Tobacco Use Smoking Status *Q: Current Every Day Smoker Years of Tobacco use: 19 Packs/Tins Daily: 0.2 - Caffeine Use Caffeine Use: Reports: Soda - Recreational Drug Use Recreational Drug Use: No - Living Situation & Occupation Living situation: Reports: , with Spouse, with Family (Daughter) Occupation: Employed ([employer]) Review of Systems - Review of Systems Review Of Systems: Comprehensive ROS is negative, except as noted in HPI. Skin: Reports: Wound (see HPI) Neurological: Denies: Numbness, Tingling ED EXAM, GENERAL - Physical Exam Exam: See Below Exam Limited By: No Limitations General Appearance: Alert, WD/WN, No Apparent Distress Respiratory/Chest: No Respiratory Distress, Lungs Clear, Normal Breath Sounds, No Accessory Muscle Use, Chest Non-Tender Cardiovascular: Normal Peripheral Pulses, Regular Rate, Rhythm, No Edema, No Murmur Peripheral Pulses: 3+: Radial (L), Radial (R) Extremities: Normal Range of Motion, Normal Capillary Refill Neurological: Alert, Oriented, Normal Cognition, No Motor/Sensory Deficits Psychiatric: Normal Affect, Normal Mood Skin Exam: Warm, Dry, Normal Color, No Rash, Wound/Incision (2 cm linear laceration to the anteriolateral aspect of the PIP of the thumb of the left hand.) ED TRAUMA EXTREMITY PROCEDURES - Laceration/Wound Repair Left Anterior Lateral Proximal Digit - 1st (Thumb) Lac/Wound Length In cm: 2 Appearance: Superficial, Subcutaneous, Linear, Clean Distal NVT: Neuro & Vascular Intact, No Tendon Injury Anesthetic Type: Local Local Anesthesia - Lidocaine (Xylocaine): 1% Plain Local Anesthetic Volume: 3cc Skin Prep: Chlorhexidine (Hibiciens), Saline Exploration/Debridement/Repair: Wound Explored, In a Bloodless Field, Explored to Base, No Foreign Material Found Closed With: Sutures Suture Size: 4-0 # of Sutures: 5 Sterile Dressing Applied: Nurse Tetanus Status Addressed: Yes Complications: No Course - Vital Signs Last Recorded V/S: Last Vital Signs Temp 98.3 F 05/04/19 17:55 Pulse 81 05/04/19 17:55 Resp 20 05/04/19 17:55 BP 110/63 05/04/19 17:55 Pulse Ox 97 05/04/19 17:55 - Orders/Labs/Meds Meds: Medications Discontinued Medications Generic Name Dose Route Start Last Admin Trade Name Fresteffanie PRN Reason Stop Dose Admin Lidocaine HCl 10 ml 05/04/19 18:15 05/04/19 18:55 Xylocaine 1% INJECT 05/04/19 18:16 10 ml ONETIME ONE Administration Departure - Departure Time of Disposition: 19:55 Disposition: Home, Self-Care 01 Condition: Fair Clinical Impression: Laceration of left thumb Qualifiers: Encounter type: initial encounter Damage to nail status: without damage Foreign body presence: without foreign body Qualified Code(s): S61.012A - Laceration without foreign body of left thumb without damage to nail, initial encounter - Discharge Information *PRESCRIPTION DRUG MONITORING PROGRAM REVIEWED*: No *COPY OF PRESCRIPTION DRUG MONITORING REPORT IN PATIENT DEE: No Instructions: Sutured Wound Care, [id number] Referrals: PCP,None [Primary Care Provider] - Forms: ED Department Discharge Additional Instructions: You have been evaluated in the ED for your laceration. Sutures will need to stay in for 14 days. You may return to the ED or clinic for removal. Please keep this area clean and dry, you may cleanse with regular soap and water. No vigorous scrubbing. You may not submerge the hand and water. You can take Tylenol or ibuprofen for further pain relief every 6 hours as needed. Watch out for signs of infection like increased redness, swelling, pain at the laceration site, or if you should develop any fevers or chills. Please return to ED if your symptoms change or worsen.
== END 2019-05-04 20:24 | disposition home or self-care (01) ==
LOC: JD.ED 17:14
DX: S61.012A Laceration without foreign body of left thumb without damage to nail, initial encounter (principal); I25.2 Old myocardial infarction; E66.9 Obesity, unspecified; Z68.34 Body mass index [BMI] 34.0-34.9, adult; Z86.2 Personal history of diseases of the blood and blood-forming organs and certain disorders involving the immune mechanism; F17.210 Nicotine dependence, cigarettes, uncomplicated; Z88.8 Allergy status to other drugs, medicaments and biological substances; Z91.040 Latex allergy status; Z79.899 Other long term (current) drug therapy; W26.0XXA Contact with knife, initial encounter; Y99.0 Civilian activity done for income or pay
CPT/HCPCS: 12001; 99282; J2001